=== PATIENT | female | born 1980 | race Caucasian/White ===

== ENCOUNTER 2017-07-28 15:17 | Emergency (ER) | payer BC ==
[~2017-07-28] VITALS: Ht 172.7 cm; Wt 77.8 kg
[~2017-07-28 15:17] MED LIST: ASPCH81 PO; ETONMIS VAGRING; FEXO5TAB2 PO; FLUT0.15 NAE; MONT1TAB3 PO; QVRINH40 INH; VENL1CAP92 PO; [UNRECOGNIZED DRUG - CODE] TOP
[2017-07-28 15:22] VITALS: TEMP 37
[2017-07-28] MEDS ORDERED: SODIUM CHLORIDE 0.9% 1000ML 1,000 ML IV STA (15:30)
--- NOTE | 2017-07-28 15:33 | EMERGENCY ROOM VISIT NOTE ---
History Report prepared by Vaishali: Chloe Montes Under the Supervision of: Dr. Jovi Green D.O. First contact with patient: 15:30 Chief Complaint: CARDIAC ASSESSMENT Stated Complaint: DIZZY, HEAVY CHEST, LEFT ARM PAIN History of Present Illness The patient is a 36 year old female who presents to the Emergency Room with complaints of near-syncope. The patient was at work when she started to have a sensation as if she was going to pass out. She also noticed palpitations and feelings of a regular heartbeat. 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 She also felt some chest discomfort and difficulty breathing. She had a similar episode in the past when she required a pacemaker. The patient has an extensive cardiac history. She had a pacemaker one time as well as surgery for a bicuspid aortic valve. The patient denies any recent illnesses or recent medication changes. She denies having any falls headaches or vomiting. She denies having any swelling in the legs or recent rashes. The patient states her symptoms are significantly improved with lying flat. She states her symptoms are worse with standing up. 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 She denies recent illness. Review of Systems See HPI for pertinent positives & negatives. A total of 10 systems reviewed and were otherwise negative. Past Medical & Surgical Medical Problems: (1) Heart block, AV (2) Heart Valve Replac Nec (3) History of gallstones (4) Pacemaker Family History Cancer Diabetes mellitus Heart disease Hypertension Social History Smoking Status: Never Smoker Smokeless Tobacco Use: No Alcohol Use: none Marital Status: Housing Status: lives with family Occupation Status: employed Current/Historical Medications Scheduled Aspirin (Aspirin Chewable), 81 MG PO DAILY Bupropion Hcl (Bupropion Hcl Xl), 150 MG PO DAILY Fluticasone Propionate (Nasal) (Flonase Allergy Relief), 1 SPRAY GODWIN QAM Montelukast Sodium (Singulair), 10 MG PO DAILY Trazodone Hcl (Trazodone), 50 MG PO HS Scheduled PRN Lorazepam (Ativan), 0.5 MG PO BID PRN for Anxiety Allergies Coded Allergies: No Known Allergies (Verified , `, 07/22/16) Physical Exam Vital Signs Date Time Temp Pulse Resp B/P (MAP) Pulse Ox O2 Delivery O2 Flow Rate FiO2 07/28/17 20:37 44 20 119/62 100 Room Air 07/28/17 19:30 Room Air 07/28/17 18:57 44 20 129/75 99 Room Air 07/28/17 18:37 46 18 124/75 99 Room Air 07/28/17 16:55 47 07/28/17 16:53 47 16 136/89 99 Room Air 07/28/17 15:55 53 140/80 99 Room Air 48 140/75 48 131/91 07/28/17 15:51 99 Room Air 07/28/17 15:38 99 Room Air 07/28/17 15:22 37.0 49 18 138/87 97 Room Air Physical Exam GENERAL: Patient is awake and alert. She appears somewhat anxious but comfortable. EYES: The conjunctivae are clear. The pupils are round and reactive. EARS, NOSE, MOUTH AND THROAT: The nose is without any evidence of any deformity. Mucous membranes are moist tongue is midline NECK: The neck is nontender and supple. RESPIRATORY: Normal respiratory effort is noted there is no evidence of wheezing rhonchi or rales CARDIOVASCULAR: Bradycardic rate with regular rhythm was noted. There was a systolic murmur appreciated. GASTROINTESTINAL: The abdomen is soft. Bowel sounds are present in all quadrants. Abdomen is nontender MUSCULOSKELETAL/EXTREMITIES: There is no evidence of gross deformity full range of motion is noted in the hips and shoulders SKIN: There is no obvious evidence of any rash. There are no petechiae, pallor or cyanosis noted. NEUROLOGIC: Patient is awake alert and oriented x3 strength is symmetric patellar reflexes are 2+ bilaterally Medical Decision & Procedures ER Provider Diagnostic Interpretation: X-ray results as stated below per interpretation by me and the radiologist. CHEST ONE VIEW PORTABLE FINDINGS: Prior median sternotomy. Residual cardiac pacer lead. Lungs are clear. Diaphragms smooth. IMPRESSION: No acute process. The above report was generated using voice recognition software. It may contain grammatical, syntax or spelling errors. Electronically signed by: Vega Castro M.D. 07/28/2017 3:53 PM Dictated Date/Time: 07/28/2017 3:52 PM Laboratory Results 07/28/17 15:38 Red Blood Count 4.82, Mean Corpuscular Volume 90.9, Mean Corpuscular Hemoglobin 32.6, Mean Corpuscular Hemoglobin Concent 35.8, Mean Platelet Volume 11.5, Neutrophils (%) (Auto) 63.6, Lymphocytes (%) (Auto) 25.3, Monocytes (%) (Auto) 7.7, Eosinophils (%) (Auto) 2.4, Basophils (%) (Auto) 0.8, Neutrophils # (Auto) 5.61, Lymphocytes # (Auto) 2.23, Monocytes # (Auto) 0.68, Eosinophils # (Auto) 0.21, Basophils # (Auto) 0.07 07/28/17 15:38 Test 07/28/17 15:38 07/28/17 15:49 07/28/17 16:04 White Blood Count 8.82 K/uL (4.8-10.8) Red Blood Count 4.82 M/uL (4.2-5.4) Hemoglobin 15.7 g/dL (12.0-16.0) Hematocrit 43.8 % (37-47) Mean Corpuscular Volume 90.9 fL (80-100) Mean Corpuscular Hemoglobin 32.6 pg (25-34) Mean Corpuscular Hemoglobin Concent 35.8 g/dl (32-36) Platelet Count 246 K/uL (130-400) Mean Platelet Volume 11.5 fL (7.4-10.4) Neutrophils (%) (Auto) 63.6 % Lymphocytes (%) (Auto) 25.3 % Monocytes (%) (Auto) 7.7 % Eosinophils (%) (Auto) 2.4 % Basophils (%) (Auto) 0.8 % Neutrophils # (Auto) 5.61 K/uL (1.4-6.5) Lymphocytes # (Auto) 2.23 K/uL (1.2-3.4) Monocytes # (Auto) 0.68 K/uL (0.11-0.59) Eosinophils # (Auto) 0.21 K/uL (0-0.5) Basophils # (Auto) 0.07 K/uL (0-0.2) RDW Standard Deviation 41.2 fL (36.4-46.3) RDW Coefficient of Variation 12.3 % (11.5-14.5) Immature Granulocyte % (Auto) 0.2 % Immature Granulocyte # (Auto) 0.02 K/uL (0.00-0.02) Prothrombin Time 10.5 SECONDS (9.0-12.0) Prothromb Time International Ratio 1.0 (0.9-1.1) Activated Partial Thromboplast Time 29.4 SECONDS (21.0-31.0) Partial Thromboplastin Ratio 1.1 Anion Gap 7.0 mmol/L (3-11) Est Creatinine Clear Calc Drug Dose 94.6 ml/min Estimated GFR () 94.7 Estimated GFR (Non- 81.7 BUN/Creatinine Ratio 11.4 (10-20) Calcium Level 9.8 mg/dl (8.5-10.1) Magnesium Level 2.1 mg/dl (1.8-2.4) Total Bilirubin 0.8 mg/dl (0.2-1) Direct Bilirubin 0.2 mg/dl (0-0.2) Aspartate Amino Transf (AST/SGOT) 25 U/L (15-37) Alanine Aminotransferase (ALT/SGPT) 33 U/L (12-78) Alkaline Phosphatase 90 U/L (45-117) Troponin I < 0.015 ng/ml (0-0.045) Total Protein 9.1 gm/dl (6.4-8.2) Albumin 5.0 gm/dl (3.4-5.0) Thyroid Stimulating Hormone (TSH) 1.660 uIu/ml (0.300-4.500) Free Thyroxine 0.96 ng/dl (0.80-1.60) Human Chorionic Gonadotropin, Qual NEG (NEG) Lyme Disease IgG Antibody NEG (NEG) Lyme Disease IgM Antibody NEG (NEG) Bedside Glucose 107 mg/dl (70-90) Urine Color YELLOW Urine Appearance CLEAR (CLEAR) Urine pH 5.5 (4.5-7.5) Urine Specific [place] 1.009 (1.000-1.030) Urine Protein NEG (NEG) Urine Glucose (UA) NEG (NEG) Urine Ketones NEG (NEG) Urine Occult Blood NEG (NEG) Urine Nitrite NEG (NEG) Urine Bilirubin NEG (NEG) Urine Urobilinogen NEG (NEG) Urine Leukocyte Esterase NEG (NEG) Laboratory results per my review. Medications Administered Medications (Trade) Dose Ordered Sig/Vaughn Route Start Time Stop Time Status Last Admin Dose Admin Sodium Chloride 1,000 ml @ 999 mls/hr Q1H1M STAT IV 07/28/17 15:30 07/28/17 16:30 DC 07/28/17 15:42 999 MLS/HR Potassium Chloride (Klor-Con M10) 20 meq NOW STAT PO 07/28/17 16:50 07/28/17 17:29 DC 07/28/17 17:39 20 MEQ Lorazepam (Ativan Inj) 0.5 mg NOW STAT IV 07/28/17 18:11 07/28/17 18:14 DC 07/28/17 18:34 0.5 MG ECG Indication: bradycardia Rate (beats per minute): 50 Rhythm: other (third-degree heart block) Findings: complete heart block, ST depression (Lateral) Comparison ECG Date: heart block is new compared to July however QRS morphology appears similar ED Course 1530: The patient was evaluated in room C12. A complete history and physical examination were performed. 1530: NSS 1,000 ml @ 999 mls/hr IV. 1555: I spoke to Dr. Odell. He will be evaluating the patient in the ED. 1650: Potassium Chloride 20meq PO. 1655: Dr. Odell of cardiology spoke to physician at [facility] but the patient was not able to be accepted as there are no beds. 1734: I discussed the patient's case with Dr. Odell of Cardiology. The patient will be evaluated for further management. 1755: Upon reevaluation, the patient is doing well. I discussed results and treatment plan with the patient. She verbalizes agreement and understanding. I spoke with Dr. Odell of Cardiology. The patient will be evaluated for further management and care. 2008: I discussed the patient's case with Dr. Jackson of [facility] in [place]. The patient will be evaluated for further management. She will go to [place] by ambulance. Medical Decision Differential diagnosis: Etiologies such as cardiac ischemia, aortic dissection, pulmonary embolism, pneumonia, pneumothorax, musculoskeletal, infections, pericarditis, myocarditis , esophageal rupture, gastrointestinal, as well as others were entertained. Nursing notes reviewed. The patient is a 36-year-old female who presented to the emergency department for evaluation of near syncope. 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 The patient states that she had palpitations and felt that her heart rate was slowing. She does have a significant cardiac history. The patient had a procedure to switch her pulmonary and aortic valves due to bicuspid aortic valve at a very young age. At one time she did have a history of third-degree heart block which required pacemaker. The pacemaker however failed and the patient does not currently have a pacemaker in place. She was found to be in third-degree heart block. She was treated with IV fluids. Her near syncopal symptoms improved with rest and lying flat. I discussed her case with the on- call [facility] abatement worker. She was evaluated by the [facility] abatement worker. The patient requested to be transferred to [facility] to her primary abatement worker in [place]. The on-call [facility] abatement worker got in touch with the patient's primary group and they wanted to accept her in transfer however no bed was available. Arrangements were made to keep the patient in our facility for a formal evaluation for possible pacemaker placement. While the patient was still in the emergency department we were contacted by [facility] that they were able to accommodate patient room so I contacted the on-call abatement worker who is covering for the patient's primary cardiology group and they were able to accept her. Transfer paperwork was written by myself. The patient was reevaluated multiple times. She was very pleased to be transferred to [facility] for further evaluation at her request. Medication Reconcilliation Current Medication List: was personally reviewed by me Blood Pressure Screening Patient's blood pressure: Elevated blood pressure Blood pressure disposition: Elevated BP felt to be situational Consults Time Called: [id number] Consulting Physician: Dr. Odell Returned Call: [phone]: Dr. Odell of cardiology spoke to physician at [facility] but the patient was not able to be accepted as there are no beds. 1734: I discussed the patient's case with Dr. Odell of Cardiology. The patient will be evaluated for further management. 1755: Upon reevaluation, the patient is doing well. I discussed results and treatment plan with the patient. She verbalizes agreement and understanding. I spoke with Dr. Odell of Cardiology. The patient will be evaluated for further management and care. Additional Consults: Time Called: 2004 Consulted Physician: Dr. Renetta Matos [facility] Returned Call: 2008 Additional Comments: I discussed the patient's case with Dr. Jackson of [facility] in [place]. The patient will be evaluated for further management. Impression Primary Impression: Third degree heart block Additional Impressions: Near syncope Symptomatic bradycardia Scribe Attestation The scribe's documentation has been prepared under my direction and personally reviewed by me in its entirety. I confirm that the note above accurately reflects all work, treatment, procedures, and medical decision making performed by me. Departure Information Dispostion Transfer Acute Care Facility Referrals Oz Swanson M.D.(LILIA) (PCP) Patient Instructions My [facility] Problem Qualifiers
[2017-07-28 15:38] VITALS: O2SAT 99
--- NOTE | 2017-07-28 15:54 | DIAGNOSTIC IMAGING REPORT ---
CHEST ONE VIEW PORTABLE CLINICAL HISTORY: EVALUATE ALTERED MENTAL STATUS/WEAKNESS COMPARISON STUDY: 07/22/2016 FINDINGS: Prior median sternotomy. Residual cardiac pacer lead. Lungs are clear. Diaphragms smooth. IMPRESSION: No acute process. The above report was generated using voice recognition software. It may contain grammatical, syntax or spelling errors. Electronically signed by: Vega Castro M.D. 07/28/2017 3:53 PM Dictated Date/Time: 07/28/2017 3:52 PM
[2017-07-28 16:14] LABS: BASO % 0.8 %; BASO ABS # 0.07 K/uL (0-0.2); COMPLETE YES; EOS % 2.4 %; HEMATOCRIT 43.8 % (37-47); IG% 0.2 %; LYMPH % 25.3 %; LYMPH ABS # 2.23 K/uL (1.2-3.4); MEAN CELL VOLUME 90.9 fL (80-100); MEAN CORPUSCULAR HEMOGLOBIN 32.6 pg (25-34); MEAN CORPUSCULAR HGB CONC 35.8 g/dl (32-36); MEAN PLATELET VOLUME 11.5 fL (7.4-10.4); MONO % 7.7 %; NEUT % 63.6 %; PLATELET COUNT 246 K/uL (130-400); RED BLOOD COUNT 4.82 M/uL (4.2-5.4); WHITE BLOOD COUNT 8.82 K/uL (4.8-10.8)
[2017-07-28 16:21] LABS: PARTIAL THROMBOPLASTIN RATIO 1.1; PROTHROMBIN TIME (PATIENT) 10.5 SECONDS (9.0-12.0)
[2017-07-28 16:30] LABS: URINE APPEARANCE CLEAR (CLEAR); URINE BILIRUBIN NEG (NEG); URINE COLOR YELLOW; URINE NITRITE NEG (NEG); URINE PH 5.5 (4.5-7.5); URINE SPECIFIC GRAVITY 1.009 (1.000-1.030); UROBILINOGEN NEG (NEG)
[2017-07-28] MEDS ORDERED: ASPCH81X PO (16:31)
[2017-07-28] MEDS ORDERED: BUPR-79 PO (16:32)
[2017-07-28 16:33] LABS: ALT/SGPT 33 U/L (12-78); BLOOD UREA NITROGEN 10 mg/dl (7-18); BUN/CREATININE RATIO 11.4 (10-20); CALCIUM 9.8 mg/dl (8.5-10.1); CARBON DIOXIDE 28 mmol/L (21-32); CHLORIDE 101 mmol/L (98-107); CREATININE 0.91 mg/dl (0.60-1.20); GLUCOSE 107 mg/dl (70-99); MAGNESIUM 2.1 mg/dl (1.8-2.4); POTASSIUM 3.4 mmol/L (3.5-5.1); SODIUM 136 mmol/L (136-145)
[2017-07-28] MEDS ORDERED: TRAZ50TA35 PO (16:33)
[2017-07-28] MEDS ORDERED: LORA-741 PO (16:35)
[2017-07-28 16:38] LABS: MANUAL MICROSCOPIC REQUIRED? NO; REVIEW REQ? NO
[2017-07-28 16:42] LABS: ALKALINE PHOSPHATASE 90 U/L (45-117); AST/SGOT 25 U/L (15-37)
[2017-07-28 16:50] LABS: PREG INTERNAL NEGATIVE QC NEG CLEAR BACKGROUND; PREG INTERNAL POSITIVE QC POS CONTROL LINE
[2017-07-28] MEDS ORDERED: POTASSIUM CHLORIDE 10 MEQ TABCR PO STA (16:50)
[2017-07-28 17:31] LABS: LYME DISEASE AB IGG NEG (NEG); LYME DISEASE AB IGM NEG (NEG)
[2017-07-28] MEDS ORDERED: NSS + 20MEQ KCL 1000ML 1,000 ML IV SCH (17:36)
[2017-07-28] MEDS ORDERED: ONDANSETRON INJ 2 MG/ML 2 ML VIAL IV PRN (17:45)
[2017-07-28] MEDS ORDERED: LORAZEPAM 0.5 MG TAB PO PRN (17:45)
[2017-07-28] MEDS ORDERED: ZOLPIDEM TARTRATE 5 MG TAB PO PRN ×2 (17:45)
[2017-07-28] MEDS ORDERED: POLYETHYLENE (MIRALAX) 17 GM PACK PO PRN (17:45)
[2017-07-28] MEDS ORDERED: ACETAMINOPHEN 325 MG TAB PO PRN (17:45)
[2017-07-28] MEDS ORDERED: MAGNESIUM HYDROXIDE SUSP 30 ML UDC PO PRN (17:45)
[2017-07-28] MEDS ORDERED: ALUMINUM/MAGNESIUM/SIMETH (MAALOX MAX) 30 ML UDC PO PRN (17:45)
--- NOTE | 2017-07-28 18:07 | HISTORY & PHYSICAL EXAMINATION ---
DATE OF ADMISSION: 07/28/2017 CHIEF COMPLAINT: Heart block. HISTORY OF PRESENT ILLNESS: The patient is a 36-year-old female with a complex past cardiac history. At age 3, she underwent surgery for a congenital bicuspid aortic valve. That surgery was complicated with heart block and she received a permanent pacemaker. The device was actually tunneled with the generator in the abdomen and the lead up along the lateral rib cage and then inserted transvenously into the right ventricle. The patient did well and then had a Ross procedure completed at age 16. She once again did well until her in 2009 at which time the pacemaker was bothering her and it was evaluated and found that she was not really using it and actually the battery had gone end of life, most likely several years ago. They removed the lead by cutting it in the subclavian area and it remains in the upper portion of the right ventricle. She did fine after removal of the pacemaker. 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 She was brought to the Emergency Department and found to be in complete heart block. She is now admitted for further care. ALLERGIES: No known medical allergies. PAST MEDICAL HISTORY: Except for the history of chief complaint her only other problems seem to be related to anxiety for which she takes medications. She has no history of diabetes, strokes or kidney disease. It should be noted that she has been followed by Dr. Hobson at [facility] for many years for her congenital heart disease. SOCIAL HISTORY: She is a nonsmoker. She is and lives with her . 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 FAMILY MEDICAL HISTORY: Noncontributory. REVIEW OF SYSTEMS: A 10-point review of systems is negative except for the history of chief complaint. PHYSICAL EXAMINATION: GENERAL: She is alert and oriented. VITAL SIGNS: Blood pressure is 140/70. Pulse is regular at 50 beats per minute. She has incomplete heart block with a ventricular escape rhythm. HEENT: She is normocephalic. Pupils are equal and reactive to light. Extraocular muscles are intact bilaterally. NECK: The neck veins are flat. Carotids have good upstrokes bilaterally without bruits. CHEST: There are postsurgical scars including under the right subclavian where the pacemaker lead was cut. RESPIRATORY: Breath sounds equal bilaterally and clear to auscultation. CARDIOVASCULAR: Heart has a regular rhythm. There is a systolic murmur at the left sternal border. No S3, S4. GASTROINTESTINAL: Abdomen is soft, nontender without organomegaly. EXTREMITIES: Free of edema, digit clubbing, or cyanosis. NEUROLOGIC: Grossly intact. SKIN: Warm to touch. LYMPH NODES: Negative to palpation. LABORATORY DATA: Potassium is 3.4. The patient has been on hydrochlorothiazide for adult acne. She does not listed as her medication, but she has also been on Aldactone for endometriosis. I do not believe that she has been taking these medications recently. IMPRESSION: 1. Complete heart block. 2. History of congenital heart disease. RECOMMENDATIONS: I have spoken to cardiology at [facility] but no beds are available at this time. The patient will be admitted here to [facility] on the telemetry overnight. If no bed becomes available at [facility], then I have spoken with the bottling room worker here and the plan will be to proceed with a permanent pacemaker tomorrow at [facility] if she remains in heart block. NEIDA
[2017-07-28] MEDS ORDERED: LORAZEPAM 2 MG/ML 1 ML VIAL IV STA (18:11)
[2017-07-28] MEDS ORDERED: IV FLUIDS COMPLETED PRN (18:45)
[2017-07-28 19:30] VITALS: Ht 172.7 cm; Wt 77.8 kg
[2017-07-28 20:37] VITALS: BP 119/62; PULSE 44; O2SAT 100
[2017-07-28] MEDS ORDERED: BUPR150T5 PO (20:38)
[2017-07-28] MEDS ORDERED: TRAZODONE HCL 50 MG TAB PO SCH (21:00)
[2017-07-29] MEDS ORDERED: ASPIRIN 81 MG CHEW PO SCH (09:00)
[2017-07-29] MEDS ORDERED: BuPROPion XL 150 MG TABCR PO SCH (09:00)
[2017-07-29] MEDS ORDERED: MONTELUKAST SOD 10 MG TAB PO SCH (09:00)
== END 2017-07-28 21:07 | disposition short-term general hospital (02) ==
LOC: C.EDB 15:18 → CANRESERV 19:03 → ENRESERV 19:03 → CANBEDREQ 19:45 → C.EDC 21:07
DX: I45.9 Conduction disorder, unspecified (principal); R55 Syncope and collapse; R00.1 Bradycardia, unspecified; Z95.2 Presence of prosthetic heart valve; Z83.3 Family history of diabetes mellitus; Z82.49 Family history of ischemic heart disease and other diseases of the circulatory system; Z79.82 Long term (current) use of aspirin

== ENCOUNTER 2017-09-09 08:33 | Emergency (ER) | payer BC ==
[~2017-09-09] VITALS: Ht 170.2 cm; Wt 78.4 kg
[~2017-09-09 08:33] MED LIST changes: -ASPCH81 PO; +ASPCH81X PO; +BUPR150T5 PO; -ETONMIS VAGRING; -FEXO5TAB2 PO; +LORA-741 PO; -QVRINH40 INH; +TRAZ50TA35 PO; -VENL1CAP92 PO; -[UNRECOGNIZED DRUG - CODE] TOP
[2017-09-09 08:38] VITALS: TEMP 37.1; Ht 170.2 cm; Wt 78.4 kg
[2017-09-09 08:58] VITALS: O2SAT 98
[2017-09-09] MEDS ORDERED: CLONAZEPAM 1 MG TAB PO STA (09:12)
--- NOTE | 2017-09-09 09:19 | EMERGENCY ROOM VISIT NOTE ---
History Report prepared by Vaishali: Savita Srinivasan Under the Supervision of: Dr. Jama Travis M.D. First contact with patient: 08:51 Chief Complaint: CHEST PAIN Stated Complaint: CP, ARM PAIN, BACK ARM TINGLING, RECENT PACEMAKER History of Present Illness The patient is a 36 year old female who presents to the Emergency Room with complaints of intermittent chest pain that began prior to arrival. The patient states that she was born with a bicuspid aortic valve. She states that she had a pediatric speech language pathologist that went in to fix it and states that her valve was over thinned which caused her heart block. The patient states that she had a pacemaker placed as a child, but states that it was only used temporarily until the age of 15. The patient states that she was fine up until a few weeks ago, but notes that she was giving flu shots when she went into complete heart block. She states that she had a pacemaker placed in [place] a few weeks ago. The patient states that over the past week she has noticed erythema at the site of the pacemaker and states that she has noticed audible crackles in her lungs that clear with standing. She states that her PCP thought she may be developing an infection to her site and a walking pneumonia so she was placed on Augmentin. The patient reports a soreness around the area. She states that the past two days she has noticed left arm tingling and numbness when holding her arms up for short periods of time. The patient states that this morning it was much worse and notes that her arm turned purple. She additionally reports a low-grade fever. The patient states that she has been feeling nauseous and short of breath. She reports diarrhea, but denies that being a new thing. The patient reports increased urination at night. She states that she has been feeling intermittently lightheaded. The patient states that she has been feeling anxious since the pacemaker was placed, noting that she was placed on Clonazepam. She denies any vomiting. Source of History: patient Onset: prior to arrival Position: chest Timing: intermittent Associated Symptoms: + SOB, + nausea, + diarrhea, + urinary symptoms ( increased urination), + numbness (in arms), No vomiting Note: Associated Symptoms: lightheaded, arm turned purple Review of Systems See HPI for pertinent positives and negatives. A total of ten systems were reviewed and were otherwise negative. Past Medical & Surgical Medical Problems: (1) Heart block, AV (2) Heart Valve Replac Nec (3) History of gallstones (4) Pacemaker Family History Cancer Diabetes mellitus Heart disease Hypertension Social History Smoking Status: Never Smoker Alcohol Use: none Marital Status: Housing Status: lives with family Occupation Status: employed Current/Historical Medications Scheduled Aripiprazole (Abilify), 5 MG PO HS Aspirin (Aspirin Chewable), 81 MG PO DAILY Clonazepam (Klonopin), 1 MG PO HS Fluticasone Propionate (Nasal) (Flonase Allergy Relief), 1 SPRAY GODWIN QAM Scheduled PRN Clonazepam (Klonopin), 1 MG PO DAILY PRN for Anxiety Montelukast Sodium (Singulair), 10 MG PO DAILY PRN for ALLERGIES Allergies Coded Allergies: No Known Allergies (Verified , `, 09/09/17) Physical Exam Vital Signs Date Time Temp Pulse Resp B/P (MAP) Pulse Ox O2 Delivery O2 Flow Rate FiO2 09/09/17 15:15 81 18 112/74 99 Room Air 09/09/17 13:20 77 18 116/61 100 Room Air 09/09/17 13:08 77 09/09/17 11:22 93 18 109/69 98 Room Air 09/09/17 10:38 72 14 09/09/17 10:08 71 22 09/09/17 10:01 104/64 09/09/17 09:38 77 20 09/09/17 09:33 79 14 09/09/17 09:31 116/82 09/09/17 09:03 85 12 100 09/09/17 09:01 135/100 09/09/17 08:58 98 T-piece 09/09/17 08:57 75 09/09/17 08:56 126/81 09/09/17 08:38 37.1 79 20 133/71 99 Room Air Physical Exam GENERAL: Awake, alert, anxious-appearing, in no distress HENT: Normocephalic, atraumatic. Dry mucous membranes. EYES: Normal conjunctiva. Sclera non-icteric. NECK: Supple. No nuchal rigidity. FROM. No JVD. CHEST: Mild tenderness over pacemaker site. RESPIRATORY: Clear to auscultation. CARDIAC: Regular rate, normal rhythm. Extremities warm and well perfused. Pulses equal, normal cap refill. ABDOMEN: Soft, non-distended. No tenderness to palpation. No rebound or guarding. No masses. RECTAL: Deferred. MUSCULOSKELETAL: The back is symmetrical on inspection without obvious abnormality. There is no CVA tenderness to palpation. No joint edema. LOWER EXTREMITIES: Calves are equal size bilaterally and non-tender. No edema. No discoloration. NEURO: Normal sensorium. No sensory or motor deficits noted. SKIN: No rash or jaundice noted. Medical Decision & Procedures ER Provider Diagnostic Interpretation: Radiology results as stated below per my review and radiologist interpretation: CHEST ONE VIEW PORTABLE CLINICAL HISTORY: ABDOMINAL PAIN/GI pain. Nausea. COMPARISON STUDY: 07/28/2017 FINDINGS: Prior median sternotomy. Permanent bipolar cardiac pacer in good position. No evidence pneumothorax. Lungs are clear. IMPRESSION: No acute process. The above report was generated using voice recognition software. It may contain grammatical, syntax or spelling errors. Electronically signed by: Vega Castro M.D. 09/09/2017 9:37 AM Dictated Date/Time: 09/09/2017 9:[address] ANGIOGRAM OF THE CHEST CLINICAL HISTORY: Atypical chest pain, shortness of breath, positive d-dimer. COMPARISON STUDY: 01/04/2007 TECHNIQUE: Following the IV administration of 86 mL of Optiray-320, CT angiogram of the thorax was performed from the thoracic inlet to the lung bases utilizing the pulmonary embolus protocol. Images are reviewed in the axial, sagittal, and coronal planes. IV contrast was administered without complication. MIP imaging was performed. A dose lowering technique was utilized adhering to the principles of ALARA. CT DOSE: 279.71 mGy.cm FINDINGS: No pathologically enlarged axillary mediastinal or hilar lymph nodes were visualized. There is aneurysmal dilatation of the ascending thoracic aorta which measures 46 mm in diameter. The aorta measures 39 mm in December 2006. There were no pulmonary artery filling defects to indicate acute pulmonary embolism. No pleural effusions are visualized. There is no focal pulmonary consolidation. There is respiratory motion artifact. There is a left subclavian dual-chamber central venous pacemaker. There are postsurgical changes of a midline sternotomy. IMPRESSION: 1. No evidence of acute pulmonary embolism 2. Progressive aneurysmal dilatation of the ascending thoracic aorta which currently measures 46 mm. No dissection flap is visualized 3. No evidence of focal pulmonary consolidation Electronically signed by: Ehsan Ramon M.D. 09/09/2017 11:52 AM Dictated Date/Time: 09/09/2017 11:45 AM Laboratory Results 09/09/17 09:49 Red Blood Count 4.05, Mean Corpuscular Volume 89.9, Mean Corpuscular Hemoglobin 31.1, Mean Corpuscular Hemoglobin Concent 34.6, Mean Platelet Volume 11.6, Neutrophils (%) (Auto) 74.7, Lymphocytes (%) (Auto) 18.8, Monocytes (%) (Auto) 4.7, Eosinophils (%) (Auto) 1.1, Basophils (%) (Auto) 0.5, Neutrophils # (Auto) 4.79, Lymphocytes # (Auto) 1.20, Monocytes # (Auto) 0.30, Eosinophils # (Auto) 0.07, Basophils # (Auto) 0.03 09/09/17 09:49 Test 09/09/17 09:49 09/09/17 10:20 09/09/17 10:50 White Blood Count 6.40 K/uL (4.8-10.8) Red Blood Count 4.05 M/uL (4.2-5.4) Hemoglobin 12.6 g/dL (12.0-16.0) Hematocrit 36.4 % (37-47) Mean Corpuscular Volume 89.9 fL (80-100) Mean Corpuscular Hemoglobin 31.1 pg (25-34) Mean Corpuscular Hemoglobin Concent 34.6 g/dl (32-36) Platelet Count 185 K/uL (130-400) Mean Platelet Volume 11.6 fL (7.4-10.4) Neutrophils (%) (Auto) 74.7 % Lymphocytes (%) (Auto) 18.8 % Monocytes (%) (Auto) 4.7 % Eosinophils (%) (Auto) 1.1 % Basophils (%) (Auto) 0.5 % Neutrophils # (Auto) 4.79 K/uL (1.4-6.5) Lymphocytes # (Auto) 1.20 K/uL (1.2-3.4) Monocytes # (Auto) 0.30 K/uL (0.11-0.59) Eosinophils # (Auto) 0.07 K/uL (0-0.5) Basophils # (Auto) 0.03 K/uL (0-0.2) RDW Standard Deviation 39.9 fL (36.4-46.3) RDW Coefficient of Variation 12.2 % (11.5-14.5) Immature Granulocyte % (Auto) 0.2 % Immature Granulocyte # (Auto) 0.01 K/uL (0.00-0.02) Anion Gap 8.0 mmol/L (3-11) Est Creatinine Clear Calc Drug Dose 100.8 ml/min Estimated GFR () 104.4 Estimated GFR (Non- 90.0 BUN/Creatinine Ratio 11.5 (10-20) Calcium Level 8.9 mg/dl (8.5-10.1) Total Bilirubin 0.8 mg/dl (0.2-1) Direct Bilirubin 0.2 mg/dl (0-0.2) Aspartate Amino Transf (AST/SGOT) 18 U/L (15-37) Alanine Aminotransferase (ALT/SGPT) 27 U/L (12-78) Alkaline Phosphatase 64 U/L (45-117) Troponin I < 0.015 ng/ml (0-0.045) Pro-B-Type Natriuretic Peptide 190 pg/ml (0-450) Total Protein 7.9 gm/dl (6.4-8.2) Albumin 4.2 gm/dl (3.4-5.0) Lipase 131 U/L (73-393) Bedside D-Dimer > 450 ng/mlFEU (0-450) Urine Color YELLOW Urine Appearance CLEAR (CLEAR) Urine pH 5.5 (4.5-7.5) Urine Specific [place] 1.010 (1.000-1.030) Urine Protein NEG (NEG) Urine Glucose (UA) NEG (NEG) Urine Ketones NEG (NEG) Urine Occult Blood NEG (NEG) Urine Nitrite NEG (NEG) Urine Bilirubin NEG (NEG) Urine Urobilinogen NEG (NEG) Urine Leukocyte Esterase NEG (NEG) Urine Test NEG (NEG) Laboratory results reviewed by me Medications Administered Medications (Trade) Dose Ordered Sig/Vaughn Route Start Time Stop Time Status Last Admin Dose Admin Clonazepam (Klonopin Tab) 1 mg STK-MED ONCE .ROUTE 09/09/17 09:36 09/09/17 09:37 DC 09/09/17 09:41 1 MG ECG Indication: chest pain Rate (beats per minute): 74 Rhythm: normal sinus Findings: no acute ischemic change, other (normal axis) Comparison ECG Date: 07/28/17 Change: When compared to EKG done on 07/28/17, heart block has resolved ED Course 0856: The patient was evaluated in room A9B. A complete history and physical exam was performed. 0936: Ordered Klonopin Tab 1 mg .route 1129: I discussed the patients case with Dr. Patel, Cardiology. He said that he agrees with the work up so far, he states that he would add a duplex of the arm. He states that he will come by and evaluate the patient. 1307: I spoke to Dr. Patel regarding the patient at this time. He states that he looked at the site and does not feel that it is infected at this time. He states that it is not uncommon to see some fluid around the pacemaker placement at this time. He would like to have the patient to have an arterial ultrasound study. Medical Decision I reviewed the patient's past medical history, medications, and the nursing notes as described above. The patient's presentation and history were concerning for Infection of pacemaker site, musculoskeletal strain, PE, DVT, pneumonia, bronchitis, ACS, CHF. The patient is a 36-year-old woman with a past medical history of heart block status post new pacemaker several weeks ago, recently treated with amoxicillin for erythema oversight which is now improved . She emergency Department with multiple complaints including chest pain, left arm pain and numbness, intermittent discoloration/cyanosis of left upper extremity per history of present illness. Arrival the patient is anxious and tearful appearing. He is afebrile with stable vital signs. Pacemaker site incision site is clean dry and intact with no areas of fluctuance or induration. However, she does have mild tenderness. Bedside soft tissue ultrasound shows smile small 0.5 cm fluid collection on the lateral aspect of the incision site that could be postsurgical versus less likely abscess given no other signs of infection. Patient does have equal pulses throughout. Motor sensory intact. D-dimer was elevated and so CTA was performed and was negative for PE or pneumonia. Case was discussed with Dr. Patel the patient's lang path therapist, who evaluated patient and agreed with workup thus far and recommending arterial and venous duplex of the left upper extremity given the patient's symptoms of apparent decreased perfusion. Venous and Arterial US unremarkable. Patient updated on findings together with at bedside. Plan for f/u with patient's surgeon tomorrow for further evaluation regarding symptoms and possible positional thoracic outlet syndrome although CTA and US studies today reassuring. Plan to continue patient's current Augmentin given prior erythema although today site does not appear infected and fluid on US likely post- surgical. Findings and plan for follow-up reviewed with patient. Patient agreeable and d/c'd per discharge instructions. Medication Reconcilliation Current Medication List: was personally reviewed by me Consults Time Called: 1100 Consulting Physician: Dr. Patel, Cardiology Returned Call: [phone] I discussed the patients case with Dr. Patel, Cardiology. He said that he agrees with the work up so far, he states that he would add a duplex of the arm. He states that he will come by and evaluate the patient. Impression Primary Impression: Chest wall pain Additional Impression: Arm paresthesia, left Scribe Attestation The scribe's documentation has been prepared under my direction and personally reviewed by me in its entirety. I confirm that the note above accurately reflects all work, treatment, procedures, and medical decision making performed by me. Departure Information Dispostion Home / Self-Care Referrals No Doctor, Assigned (PCP) Patient Instructions ED Chest Pain Costochondritis, ED Paraesthesias, [facility], Treatment for Thoracic Outlet Syndrome, Understanding Thoracic Outlet Syndrome Additional Instructions Please follow up with your surgeon tomorrow at [facility] for re-evaluation as discussed. The exact cause of your symptoms at this time is unclear although it may be due to a positional thoracic outlet syndrome, which should be further evaluated by your surgeon. Otherwise, your exam, EKG, chest xray, CT scan of your chest, arterial and venous ultrasound of your arm, and lab results did not show signs of an emergent condition at this time. Continue your current medications as prescribed. Acetaminophen or Ibuprofen for pain as needed. Return to the emergency department for worsening symptoms as described in the accompanying instructions. Problem Qualifiers
[2017-09-09] MEDS ORDERED: ABL/5 PO (09:22)
[2017-09-09] MEDS ORDERED: CLON1TAB3 PO ×2 (09:22)
[2017-09-09] MEDS ORDERED: CLONAZEPAM 0.5 MG TAB ONE (09:36)
--- NOTE | 2017-09-09 09:39 | DIAGNOSTIC IMAGING REPORT ---
CHEST ONE VIEW PORTABLE CLINICAL HISTORY: ABDOMINAL PAIN/GI pain. Nausea. COMPARISON STUDY: 07/28/2017 FINDINGS: Prior median sternotomy. Permanent bipolar cardiac pacer in good position. No evidence pneumothorax. Lungs are clear. IMPRESSION: No acute process. The above report was generated using voice recognition software. It may contain grammatical, syntax or spelling errors. Electronically signed by: Vega Castro M.D. 09/09/2017 9:37 AM Dictated Date/Time: 09/09/2017 9:36 AM
[2017-09-09 10:45] LABS: BASO % 0.5 %; BASO ABS # 0.03 K/uL (0-0.2); COMPLETE YES; EOS % 1.1 %; HEMATOCRIT 36.4 % (37-47); IG% 0.2 %; LYMPH % 18.8 %; MEAN CELL VOLUME 89.9 fL (80-100); MEAN CORPUSCULAR HEMOGLOBIN 31.1 pg (25-34); MEAN CORPUSCULAR HGB CONC 34.6 g/dl (32-36); MEAN PLATELET VOLUME 11.6 fL (7.4-10.4); MONO % 4.7 %; NEUT % 74.7 %; PLATELET COUNT 185 K/uL (130-400); RED BLOOD COUNT 4.05 M/uL (4.2-5.4)
[2017-09-09 11:02] LABS: ALT/SGPT 27 U/L (12-78); BLOOD UREA NITROGEN 10 mg/dl (7-18); BUN/CREATININE RATIO 11.5 (10-20); CALCIUM 8.9 mg/dl (8.5-10.1); CARBON DIOXIDE 24 mmol/L (21-32); CHLORIDE 107 mmol/L (98-107); CREATININE 0.84 mg/dl (0.60-1.20); GLUCOSE 86 mg/dl (70-99); POTASSIUM 3.7 mmol/L (3.5-5.1); SODIUM 139 mmol/L (136-145)
[2017-09-09 11:08] LABS: ALKALINE PHOSPHATASE 64 U/L (45-117); AST/SGOT 18 U/L (15-37)
[2017-09-09 11:13] LABS: URINE APPEARANCE CLEAR (CLEAR); URINE BILIRUBIN NEG (NEG); URINE COLOR YELLOW; URINE NITRITE NEG (NEG); URINE PH 5.5 (4.5-7.5); UROBILINOGEN NEG (NEG); ZZUR CULT IF INDIC CLEAN CATCH NO
[2017-09-09 11:21] LABS: MANUAL MICROSCOPIC REQUIRED? NO; REVIEW REQ? NO
[2017-09-09] MEDS ORDERED: OPTIRAY 320 IV PRN (11:30)
--- NOTE | 2017-09-09 11:53 | DIAGNOSTIC IMAGING REPORT ---
CT ANGIOGRAM OF THE CHEST CLINICAL HISTORY: Atypical chest pain, shortness of breath, positive d-dimer. COMPARISON STUDY: 01/04/2007 TECHNIQUE: Following the IV administration of 86 mL of Optiray-320, CT angiogram of the thorax was performed from the thoracic inlet to the lung bases utilizing the pulmonary embolus protocol. Images are reviewed in the axial, sagittal, and coronal planes. IV contrast was administered without complication. MIP imaging was performed. A dose lowering technique was utilized adhering to the principles of ALARA. CT DOSE: 279.71 mGy.cm FINDINGS: No pathologically enlarged axillary mediastinal or hilar lymph nodes were visualized. There is aneurysmal dilatation of the ascending thoracic aorta which measures 46 mm in diameter. The aorta measures 39 mm in December 2006. There were no pulmonary artery filling defects to indicate acute pulmonary embolism. No pleural effusions are visualized. There is no focal pulmonary consolidation. There is respiratory motion artifact. There is a left subclavian dual-chamber central venous pacemaker. There are postsurgical changes of a midline sternotomy. IMPRESSION: 1. No evidence of acute pulmonary embolism 2. Progressive aneurysmal dilatation of the ascending thoracic aorta which currently measures 46 mm. No dissection flap is visualized 3. No evidence of focal pulmonary consolidation Electronically signed by: Ehsan Ramon M.D. 09/09/2017 11:52 AM Dictated Date/Time: 09/09/2017 11:45 AM
--- NOTE | 2017-09-09 14:33 | Cardiology Consultation ---
Cardiology Consultation Date of Consultation: Sep 09, 2017 History of Present Illness Nery Berman is a 36 year old female seen in cardiology consultation per the request of Dr Travis for the evaluation of chest pain, arm pain, and concern of redness of her pacemaker incision. 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 She has followed with Dr. Gabino Hobson of a congenital/pediatric cardiology for many years with most recent visit having been performed in December,. The patient apparently had heart block after her Ross procedure in 1996. Her generator reached the elective replacement interval in 2009, but she had not had any documented recurrences of AV block on pacemaker checks for many years, and therefore her right-sided pacemaker generator was removed operatively in 2009 rather than having a generator replacement. 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 ~She actually connected herself to inspector circuitry negative and was found to be bradycardic with complete AV block in the 40 beat per minute range. ~She was taken to the emergency department, and ultimately seen in cardiology consultation by Dr. Odell of our practice. ~It was felt that permanent pacemaker was indicated, and per patient preference she was transferred to [facility] due to her complex history of congenital heart disease, and the fact that she had had her previous procedures there. A Lyme screen was negative as well as a thyroid screen was negative at that time. She went on to have a dual-chamber [employer] pacemaker and plantation. 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 A CT scan, it is been determined that her proximal ascending aorta is moderately dilated in the range of 4.6-4.7 cm as confirmed on repeat CT scan already performed today. The patient states that she went to see her primary care provider 2 days ago. She had noted increased erythema over her pacemaker incision. She was prescribed a course of Augmentin. Today while doing her hair her left arm felt tired. She then noted chest discomfort that was under her right breast. She has chest discomfort episodes of times and this is not particularly out of the ordinary for her. While doing her hair, she raised both of her arms and her left arm, which is the side of her pacemaker had recently placed was noted to have a color change and it looked dusky and perhaps blue or purple. She actually took a picture of this with her mobile phone and it was visible. In the emergency department, it was noted that her d-dimer is elevated. She has already had a CT of the chest which was negative troponin [place] in the negative for pericardial effusion. During my assessment of the patient, she has no significant distention of her veins in her left hand or left arm. Her left infraclavicular pacemaker site looks clean dry and intact, with an appropriate degree of keloid healing over her pacemaker incision. There is no drainage and no suggestion of pocket hematoma or abscess was noted on palpation or visual inspection. Past Medical/Surgical History Problem List: Medical Problems: (1) Heart block, AV (2) Heart Valve Replac Nec (3) History of gallstones (4) Pacemaker Review Of Systems See above for pertinent positives & negatives. A total of 10 systems reviewed and were otherwise negative. Allergies Coded Allergies: No Known Allergies (Verified , `, 09/09/17) Medications Reported Home Medications Medications Dose Route/Sig Max Daily Dose Days Date Category Klonopin (Clonazepam) 1 Mg Tab 1 Mg PO DAILY PRN 09/09/17 Reported Klonopin (Clonazepam) 1 Mg Tab 1 Mg PO HS 09/09/17 Reported Abilify (Aripiprazole) 5 Mg Tab 5 Mg PO HS 09/09/17 Reported Aspirin Chewable (Aspirin) 81 Mg Chew 81 Mg PO DAILY 07/28/17 Reported Singulair (Montelukast Sodium) 10 Mg Tab 10 Mg PO DAILY PRN 09/25/16 Reported Flonase Allergy Relief (Fluticasone Propionate (Nasal)) 50 Mcg/Act Spr 1 [place] GODWIN QAM 07/22/16 Reported Physical Exam Vital Signs (Last 8hrs): Last 8 Hrs Date Time Temp Pulse Resp B/P (MAP) Pulse Ox O2 Delivery O2 Flow Rate FiO2 09/09/17 13:20 77 18 116/61 100 Room Air 09/09/17 13:08 77 09/09/17 11:22 93 18 109/69 98 Room Air 09/09/17 10:38 72 14 09/09/17 10:08 71 22 09/09/17 10:01 104/64 09/09/17 09:38 77 20 09/09/17 09:33 79 14 09/09/17 09:31 116/82 09/09/17 09:03 85 12 100 09/09/17 09:01 135/100 09/09/17 08:58 98 T-piece 09/09/17 08:57 75 09/09/17 08:56 126/81 09/09/17 08:38 37.1 79 20 133/71 99 Room Air General Appearance: Alert and Oriented x3. NAD. Head: Normocephalic Atraumatic. Eyes: PERRLA, EOMI, conjunctiva and sclera clear Neck: Supple. No carotid bruits noted. No JVD. No HJD. Respiratory: Breath sounds clear to auscultation bilaterally. No w/r/r. Cardiovascular: Reg rate and rhythm. S1 and S2 noted. No murmurs, rubs, gallops. PMI non displace. Abdomen: Normal bowel sounds, soft nontender. no abdominal bruits. Extremities: No edema, no clubbing or cyanosis. distal pulses 2/4 bilaterally. Neuro: No focal deficits. Psychiatric: Normal affect. .pacemaker pocket is clean dry and intact, with no suggestion of abnormal incision changes. Data Last Resulted 09/09/17 09:49 Red Blood Count 4.05, Mean Corpuscular Volume 89.9, Mean Corpuscular Hemoglobin 31.1, Mean Corpuscular Hemoglobin Concent 34.6, Mean Platelet Volume 11.6, Neutrophils (%) (Auto) 74.7, Lymphocytes (%) (Auto) 18.8, Monocytes (%) (Auto) 4.7, Eosinophils (%) (Auto) 1.1, Basophils (%) (Auto) 0.5, Neutrophils # (Auto) 4.79, Lymphocytes # (Auto) 1.20, Monocytes # (Auto) 0.30, Eosinophils # (Auto) 0.07, Basophils # (Auto) 0.03 Last Resulted 09/09/17 09:49 Past 24 Hours Test 09/09/17 09:49 Range/Units Troponin I < 0.015 0-0.045 ng/ml EKG reveals SR at 74 bpm, with nonspecific ST changes. Compared to 07/28/17 SR has replaced complete heart block. Assessment & Plan Impression: 36 year old female 1. Concerns of left arm pain, cyanosis of left upper extremity s/p recent pacemaker placement 6 weeks ago. 2. Underlying congenital heart disease, remote Ross procedure, with mild AR, and [place]/ [place] of the pulmonary homograft. 3. Ascending aorta aneurysm, moderate dilatation 4.[address] today, correlates with recent CT at [facility] Plan: CT is negative for pulmonary embolism. Upper extremity venous and arterial duplex studies were requested and revealed no evidence of left upper extremity DVT and normal left upper extremity and left subclavian arterial flow. Patient is going to be discharged from the ED. She is going to continue her course of Augmentin, as she states there had been an interval improvement in the redness of her incision. She is going to follow up with EP at [facility] this week and has a visit with Dr Hobson of Pediatric / Adult congenital cardiology as well on Thursday. Dinora Patel DO
[2017-09-09 15:15] VITALS: BP 112/74; PULSE 81; O2SAT 99
--- NOTE | 2017-09-09 15:24 | DIAGNOSTIC IMAGING REPORT ---
ULTRASOUND VENOUS DOPPLER ULTRASOUND OF THE LEFT UPPER EXTREMITY CLINICAL HISTORY: Left arm pain and numbness. COMPARISON STUDY: No previous studies for comparison. FINDINGS: No intraluminal thrombus was visualized. The internal jugular, subclavian, axillary, cephalic, brachial, basilic, radial, and ulnar veins were patent. IMPRESSION: No evidence of left upper extremity DVT. Electronically signed by: Ehsan Ramon M.D. 09/09/2017 3:23 PM Dictated Date/Time: 09/09/2017 3:23 PM
--- NOTE | 2017-09-09 15:41 | DIAGNOSTIC IMAGING REPORT ---
LEFT UPPER EXTREMITY ARTERIAL DOPPLER STUDY HISTORY: Left arm pain. r/o subclavian stenosis, left extremity stenosis COMPARISON STUDY: None. FINDINGS: Normal velocities and waveforms seen within the left common carotid, subclavian, axillary, brachial, radial, and ulnar arteries. No significant stenosis. No areas of occlusion identified. IMPRESSION: Normal left upper extremity arterial Doppler study. Electronically signed by: Adan Patel M.D. 09/09/2017 3:40 PM Dictated Date/Time: 09/09/2017 3:39 PM
== END 2017-09-09 16:23 | disposition home or self-care (01) ==
LOC: C.EDB 08:34 → C.EDA 16:23
DX: R07.89 Other chest pain (principal); R20.2 Paresthesia of skin; Z95.0 Presence of cardiac pacemaker; Z95.2 Presence of prosthetic heart valve; I44.2 Atrioventricular block, complete; Z80.9 Family history of malignant neoplasm, unspecified; Z83.3 Family history of diabetes mellitus; Z82.49 Family history of ischemic heart disease and other diseases of the circulatory system; Z79.82 Long term (current) use of aspirin; Z79.899 Other long term (current) drug therapy

== ENCOUNTER 2017-12-03 11:49 | Emergency (ER) | payer OTHER, BC ==
[~2017-12-03] VITALS: Ht 170.2 cm; Wt 75.4 kg
[~2017-12-03 11:49] MED LIST changes: +ABL/5 PO; -BUPR150T5 PO; +CLON1TAB3 PO; -LORA-741 PO; -TRAZ50TA35 PO
[2017-12-03 12:20] VITALS: PULSE 82; TEMP 36.8; O2SAT 96; Ht 170.2 cm; Wt 75.4 kg
--- NOTE | 2017-12-04 15:30 | EMERGENCY ROOM VISIT NOTE ---
ED Visit Note First contact with patient: 12:28 Chief Complaint: Needlestick. History of Present Illness: Ms. Berman is a 37-year-old white female who ambulates into the ED complaining of a work-related needlestick injury to the left hand. Patient reports she was removing a needle from in a port and accidentally punctured her left middle finger. She reports she immediately washed the wound with antibacterial soap and water. 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 Early she denies all symptoms related to her injury. She reports in the past she believes her hepatitis, tetanus and other immunizations are all up-to-date. Review of Systems: As noted above in history of present illness. Past Medical History: Valvular heart disease, status post valvular heart surgery. Current Medications: Syeda Canela. Allergies to Medications: Patient denies. Social History: Patient is currently employed; she feels safe in her home environment; she denies tobacco and alcohol use. Tetanus Immunization Status: Patient reports up-to-date. Physical Examination: Vital Signs: Date Time Temp Pulse Resp B/P (MAP) Pulse Ox O2 Delivery O2 Flow Rate FiO2 12/03/17 12:20 36.8 82 16 96 Room Air GENERAL: 37-year-old female in no acute distress, nontoxic-appearing, afebrile and hemodynamically stable. NEUROLOGICAL: Awake, alert and oriented to person, place and time. Answering questions appropriately and following commands. SKIN: Warm, dry and pink. Left Hand: Single puncture wound to the dorsal aspect of the left middle finger at the level of the DIP joint. No active bleeding. No soft tissue eruptions or trauma noted. ED Course: Patient is assessed as noted above. Patient's medication list was reviewed. Patient was counseled/educated on the use of hepatitis and HIV testing. I did review that consult for blood testing. She reviewed this forearm and consented to testing. Patient was educated about today's findings and instructed on her treatment plan ; she verbalized understanding and agreement with this plan. Clinical Impression: Needlestick injury. Possible exposure to blood/body secretions. Disposition: Patient discharged home in stable condition; prior to departure she was reassessed and subjectively reported she was pain and symptom-free. Plan: Comfort measures, wound care and signs of infection were discussed with the patient. Patient was encouraged to follow-up with [facility] for signs of infection and/or testing results. Patient was discharged and instructed to go to the labs for testing. Patient is encouraged return ED for any new/concerning symptoms.
== END 2017-12-03 12:45 | disposition home or self-care (01) ==
LOC: C.EDB 11:50 → C.EDD 12:45
DX: S61.432A Puncture wound without foreign body of left hand, initial encounter (principal); W46.1XXA Contact with contaminated hypodermic needle, initial encounter; Z79.899 Other long term (current) drug therapy

== ENCOUNTER 2020-11-05 11:48 | Observation (INO) ==
[2020-11-05] MEDS ORDERED: AMOXICILLIN/CLAVULANATE 875 MG TAB PO ONE (12:15)
--- NOTE | 2020-11-05 12:47 | XRay Report ---
XR chest 1V portable CLINICAL HISTORY: SEPSIS COMPARISON STUDY: Chest radiograph June 15, 2020. Chest CT December 28, 2018. FINDINGS: An old right-sided lead is in place. There are pediatric median sternotomy wires. Cardiomed iastinal silhouette is stable. An electronic device projects over the left chest wall. In addition, a prosthetic valve is noted, likely pulmonic. There is no evidence for pulmonary edema. No consolidati on is noted. No pneumothorax or pleural effusion is noted. IMPRESSION: No acute cardiopulmonary findings. ACT 112: Negative or not required by law. Electronically signed by: Cristiano Park M.D. 11/05/2020 12:45 PM
[2020-11-05 13:25] LABS: Basophils # (auto) 0.01 K/uL (0-0.2); Basophils % (auto) 0.1 %; Hematocrit (blood only) 35.4 % (37-47); Hemoglobin 12.2 g/dL (12.0-16.0); Immature Granulocytes # (auto) 0.09 K/uL (0.00-0.02); Immature Granulocytes % (auto) 0.7 %; Lymphocytes # (auto) 0.84 K/uL (1.2-3.4); Lymphocytes % (auto) 6.1 %; Mean Corpuscular Hemoglobin 32.6 pg (25-34); Mean Corpuscular Hgb Conc 34.5 g/dL (32-36); Mean Corpuscular Volume 94.7 fL (80-100); Mean Platelet Volume 10.8 fL (7.4-10.4); Monocytes # (auto) 0.19 K/uL (0.11-0.59); Monocytes % (auto) 1.4 %; Neutrophils # (auto) 12.67 K/uL (1.4-6.5); Neutrophils % (auto) 91.7 %; Platelet Count 281 K/uL (130-400); RDW Standard Deviation 44.6 fL (36.4-46.3); Red Blood Count 3.74 M/uL (4.2-5.4)
[2020-11-05 13:36] LABS: Partial Thromboplastin Ratio 0.9; Partial Thromboplastin Time 24.2 Seconds (21.0-31.0); Prothrombin Time 10.1 Seconds (9.0-12.0)
[2020-11-05 13:37] LABS: Albumin Level 3.8 gm/dl (3.4-5.0); BUN Creatinine Ratio 13.2 (10-20); Calcium 8.7 mg/dl (8.5-10.1); Creatinine Clr Calc Pharmacy 75.4 ml/min; Est GFR (African American) 73.8; Est GFR (Non-African American) 63.6; Magnesium 2.2 mg/dl (1.8-2.4); Potassium 3.9 mmol/L (3.5-5.1)
[2020-11-05 13:40] LABS: Bilirubin,Total 0.4 mg/dl (0.2-1); Globulin 3.9 gm/dl (2.5-4.0); Total Protein 7.7 gm/dl (6.4-8.2)
[2020-11-05] MEDS ORDERED: SODIUM CHLORIDE 0.9% 1000ML 1,000 ML IV ONE (14:16)
--- NOTE | 2020-11-05 14:21 | Cardiology Consultation ---
Date of Consultation November 05, 2020 Assessment & Plan (1) Right groin wound: The patient's previously noted urticaria with hives and facial swelling has resolved. She now presents with drainage from her recent right femoral vein access site 11 days post transcatheter pulmonic valve replacement and placement of a wireless Medtronic Micra AV pacemaker system. The patient presents to the emergency department as per instructions from my office and from provider at the [facility], . This may have just been drainage from a resolving hematoma that had collected immediately post procedure. White blood cell count is mildly elevated, but she has been on a course of prednisone. Blood cultures have been obtained. Right groin ultrasound has been requested, and is pending at present. Depending upon ultrasound findings, will consider next course of treatment, perhaps a 2-week course of oral Augmentin. ADDENDUM, 2:26 PM: Patient's lactate is elevated at 3.6. US pending. Case discussed with Dr Lin. Complex history with old and new cardiac prosthetic devices, admission for IV antibiotics likely indicated. 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 She therefore return to [place] and on 10/24/2020 underwent transcatheter pulmonic valve replacement utilizing a Bev prosthesis. She also underwent placement of a Medtronic Micra AV pacing system the same day. She tolerated the procedure well with the exception of a mild right femoral vein hematoma. She was discharged on clopidogrel in addition to her chronic treatment with aspirin 81 milligrams daily, and was also prescribed a 7 day course of Keflex. On 10/31/2020 she presented to the emergency department after hives and facial swelling. She was treated for an allergic reaction and received Solu-Medrol, IV Benadryl, and IV Pepcid. Both clopidogrel and Keflex were discontinued. She was discharged after an interval of observation with plans for ongoing oral Benadryl and Pepcid. That evening, I had spoken to her by phone for complaints of recurrent symptoms for which a tapering dose of prednisone prescribed. She notes that she was doing well up until yesterday at about 4 PM when she noted drainage from her right groin at the location of a femoral venous access site. She described that there has been bleeding post procedure from the site was sutured in the recovery room post procedure on 10/24/2020. She describes having had drainage of dark brown blood and serosanguineous drainage that there was a trotter, and then it tapered off and she has had mild serosanguineous drainage on a Band-Aid in the interim overnight. She is afebrile on vital signs, with a temperature 37.1 C, although she felt "warm "subjectively earlier today and she feels "off. Past Cardiac surgery, procedural history: - 1984 Aortic valve repair, complicated with complete heart block andPPM insertion - 1984 VSD and tricuspid repair - 1996 Ross procedure/new PPM insertion - 1996 - 2006 frequent PPM interrogations: normal AV conduction - 2006 PPM generator battery depletion detected - 2009 PPM generator extraction/ leadretained -2012 Left and right heart catheterization performed [facility] [place] [place], normal coronaries, elevated RV systolic pressures in the 64 mm Hg range - Implantation of Dual chamber Medtronic pacemaker placed, Dr Josafat Hawkins [facility] [place] [place] for complete AV block -Removal of Medtronic pacemaker, removal of right atrial and right ventricular leads at [facility] on 12/09/17due to concerns ofthoracic outlet syndrome, with swelling of her left upper arm -Implantable LINQ loop recorder on 12/09/17, [facility] -06/15/2020, recurrent third-degree heart block, 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 Cazares -10/31/2020, emergency department visit, [facility], hives, angioedema perhaps related to Keflex -4.7 centimeter ascending thoracic aortic aneurysm Allergies Allergy/AdvReac Type Severity Reaction Status Date / Time cephalexin [From Keflex] Allergy Severe FACIAL Unverified 11/05/20 13:44 SWELLING clopidogrel [From Plavix] Allergy Severe FACIAL Unverified 11/05/20 13:44 SWELLING spironolactone AdvReac Unknown Unknown Unverified 11/05/20 13:44 [From Aldactone] Home Medications Medication Instructions Recorded Confirmed Type aripiprazole 2 mg PO HS 06/15/20 11/05/20 History dextroamphetamine-amphetamine 20 mg PO TID 06/15/20 11/05/20 History etonogestrel-ethinyl estradiol 1 vag ring VAGINAL UD 06/15/20 11/05/20 History losartan 25 mg PO QAM 06/15/20 11/05/20 History adapalene 0.3 % topical gel 1 applic TOPICAL DAILY #45 g 08/02/20 11/05/20 Rx benzoyl peroxide 5 % topical 1 applic TOPICAL DAILY #142 g 08/02/20 11/05/20 Rx cleanser clindamycin phosphate 1 % topical 1 applic TOPICAL DAILY #30 ml 08/02/20 11/05/20 Rx solution montelukast 10 mg tablet 10 mg PO QAM tab 08/02/20 11/05/20 History Saccharomyces boulardii 250 mg 500 mg PO BID cap 09/25/20 11/05/20 History capsule clonazepam 2 mg tablet 3 mg PO HS PRN tab 09/25/20 11/05/20 History aspirin [Aspirin Low Dose] 160 mg PO QAM 10/31/20 11/05/20 History epinephrine 0.3 mg IM ONCE PRN #2 ea 10/31/20 11/05/20 Rx Patient History Medical History ADD (attention deficit disorder) Aortic valve insufficiency Depression Endometriosis Heart block, AV History of bicuspid aortic valve History of congenital heart disease Polycystic ovaries 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 SBE (subacute bacterial endocarditis) prophylaxis candidate Ventricular septal defect Surgical History H/O aortic valve repair (1984) H/O tricuspid valve repair (04/1995) H/O umbilical hernia repair (11/15/15) incarcerated umbilical hernia S/P section (2009) S/P laparoscopic cholecystectomy (11/15/15) S/P Ross procedure (1995) S/P tricuspid valve repair (1984) S/P VSD repair (1984) Status post biventricular cardiac pacemaker insertion (07/2017) w/ removal in Nov 2017 Status post placement of implantable loop recorder (11/2017) Family History Father Diabetes Coronary heart disease Hypertension Mother Hypertension Aunt Breast cancer paternal aunt Denies family history of Ovarian cancer Prostate cancer Myocardial infarction Colorectal cancer Social History Smoking Status: Former smoker Tobacco Type: Cigarettes packs per day: 1; Hx Alcohol Use: Yes Hx Substance Use: No Preferred Language: Australian Visual Impairment: No Limitations Hearing Ability: Normal Beliefs That Will Affect Care: None marital status: Current Living Situation: Family Current Living Situation Comment: Currently w/ son only current occupational status: employed 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[employer] How many Children do You have: 1 Feels Safe at Home: Yes caffeine: Yes during the past year weight has: remained stable Dental Care, Regularly: Yes Physical Activity Frequency: Other Seatbelt Use: always Sunscreen Use: Yes Review of Systems Review of Systems: All systems reviewed & are unremarkable except as noted in HPI & below Physical Exam Physical Exam: Temp Pulse Resp BP Pulse Ox 37.1 C 97 H 18 139/84 98 11/05/20 12:02 11/05/20 12:02 11/05/20 12:02 11/05/20 12:02 11/05/20 12:02 Constitutional: WD/WN, vitals as above Respiratory: normal respiratory effort, lungs clear to auscultation Cardiovascular: RRR, no murmur, no edema Right groin reveals 1/2 cm diameter puncture wound, no significant surrounding edema, no drainage could be expressed, nontender on palpation Results & Data ([facility]) Vital Signs (Past 12 Hours) Vital Signs Temp Pulse Resp BP Pulse Ox 11/05/20 12:02 37.1 C 97 H 18 139/84 98 Laboratory Results Cardiac Enzymes 11/05/20 Range/Units 13:06 AST 11 L (15-37) U/L Coagulation 11/05/20 Range/Units 13:06 PT 10.1 (9.0-12.0) Seconds APTT 24.2 (21.0-31.0) Seconds CBC 11/05/20 Range/Units 13:06 WBC 13.80 H (4.8-10.8) K/uL RBC 3.74 L (4.2-5.4) M/uL Hgb 12.2 (12.0-16.0) g/dL Hct 35.4 L (37-47) % Plt Count 281 (130-400) K/uL Neut # (Auto) 12.67 H (1.4-6.5) K/uL Lymph # (Auto) 0.84 L (1.2-3.4) K/uL [place] # (Auto) 0.19 (0.11-0.59) K/uL Eos # (Auto) 0.00 (0-0.5) K/uL Baso # (Auto) 0.01 (0-0.2) K/uL Comprehensive Metabolic Panel 11/05/20 Range/Units 13:06 Sodium 137 (136-145) mmol/L Potassium 3.9 (3.5-5.1) mmol/L Chloride 105 (98-107) mmol/L Carbon Dioxide 24 (21-32) mmol/L BUN 14 (7-18) mg/dl Creatinine 1.10 (0.6-1.2) mg/dl Glucose 222 H (70-99) mg/dl Calcium 8.7 (8.5-10.1) mg/dl AST 11 L (15-37) U/L ALT 32 (12-78) U/L Alkaline Phosphatase 80 (45-117) U/L Total Protein 7.7 (6.4-8.2) gm/dl Albumin 3.8 (3.4-5.0) gm/dl Intake and Output 11/04/20 11/05/20 11/05/20 22:59 06:59 14:59 Other: Weight 79.7 kg Weight Measurement Method Chair Scale Patient Weight 11/06/20 06:59 Weight 79.7 kg Diagnostic Findings EKG performed today 11/05/2020 at 1304 revealed normal sinus rhythm 86 bpm, nonspecific repolarization abnormality, unchanged compared to 12/16/2019.
[2020-11-05] MEDS ORDERED: PIPERACILL/TAZOBAC CONSULT ACTIVE PRN ×2 (14:24→19:29)
[2020-11-05] MEDS ORDERED: PIPERACILLIN/TAZOBACTAM 4.5 GM/120 ML BAG IV ONE (14:24)
[2020-11-05] MEDS ORDERED: VANCOMYCIN CONSULT ACTIVE PRN (14:24)
[2020-11-05] MEDS ORDERED: VANCOMYCIN HCL 1,500 MG in SODIUM CHLORIDE 0.9% 500 ML IV ONE (14:24)
--- NOTE | 2020-11-05 15:00 | History & Physical Report ---
Date of Service November 05, 2020 Assessment & Plan (1) Right groin wound: No clear infection and WBC possible explained by prednisone use. However given recent pulmonic valve replacement agree with treating with antibiotics pending wound and blood cultures. Continue Vancomycin and Zosyn CRP and ESR with AM labs Follow up wound and blood cultures Consult cardiology (2) Acidosis, lactic: Unclear etiology but improving and will repeat with AM labs. Possible sign of infection in setting of Adderall use. IV fluids overnight. Encourage PO intake. (3) Heart block, AV: Intermittent. Admit to [facility] telemetry Status post Medtronic Micra AV pacemaker (4) S/P pulmonary valve replacement: Recent procedure on 10/24/2020 Continue aspirin 160 mg p.o. every morning (5) History of bicuspid aortic valve: (6) ADD (attention deficit disorder): Hold Adderall due to increased lactate Admission and Anticipated Discharge Date Admission Date: 11/05/2020 History of Present Illness Chief Complaint: Right groin wound Primary Care Provider: DO Nery Rios Antonella is a 31-year-old female with complex congenital cardiac history who presents to the ER on advice of her professor of fine art due to a right groin wound 11 days post transcatheter pulmonic valve replacement and placement of a wireless Medtronic Micra AV pacemaker via right femoral vein. Reportedly had a mild right femoral vein hematoma postprocedure and was discharged with a 7-day course of Keflex. Unfortunately she had an allergic reaction 7 days later with hives and severe facial swelling. She was seen in the ER and suspected to be secondary to either Keflex or clopidogrel that was started post procedure. She was treated with IV dexamethasone, Benadryl and famotidine for an allergic reaction. Both these medications were stopped and she was discharged home with an EpiPen and advised to take Benadryl and Pepcid. She was later prescribed a course of prednisone by her professor of fine art due to recurrent/persistent symptoms later that night (last dose taken yesterday). Regarding her right groin wound. This started off as a mild hematoma post procedure as above. Initially she was doing well with this until yesterday approximately 4 PM she noticed drainage from her right groin which was dark brown/green blood and serosanguineous which subsequently tapered off. No pus seen. However she has had ongoing serosanguineous since this time. She called her professor of fine art who recommended coming to the emergency room for further e valuation. She has already been seen by Dr. Patel her professor of fine art in the emergency room who recommends admission with IV antibiotics due to concern for infection in the setting of WBC 13.8, lactate 3.6 and risk to recently replaced pulmonic valve. In addition she reports being on and off fluconazole since January for recurrent oral thrush. However no cultures have grown any fungus. She last took fluconazole 6 days ago prior to coming to the ER. She reports these white spots mainly on her tongue but also the ulcers in her mouth clear up with IV antibiotics and did not get worse with her recent course of prednisone. She denies any current active lesions. In the ER she was started on vancomycin and Zosyn per cardiology recommendations and referred to medicine for admission for ongoing management. Allergies Allergy/AdvReac Type Severity Reaction Status Date / Time cephalexin [From Keflex] Allergy Severe FACIAL Unverified 11/05/20 13:44 SWELLING clopidogrel [From Plavix] Allergy Severe FACIAL Unverified 11/05/20 13:44 SWELLING spironolactone AdvReac Unknown Unknown Unverified 11/05/20 13:44 [From Aldactone] Home Medications Medication Instructions Recorded Confirmed Type aripiprazole 2 mg PO HS 06/15/20 11/05/20 History dextroamphetamine-amphetamine 20 mg PO TID 06/15/20 11/05/20 History etonogestrel-ethinyl estradiol 1 vag ring VAGINAL UD 06/15/20 11/05/20 History losartan 25 mg PO QAM 06/15/20 11/05/20 History adapalene 0.3 % topical gel 1 applic TOPICAL DAILY #45 g 08/02/20 11/05/20 Rx benzoyl peroxide 5 % topical 1 applic TOPICAL DAILY #142 g 08/02/20 11/05/20 Rx cleanser clindamycin phosphate 1 % topical 1 applic TOPICAL DAILY #30 ml 08/02/20 11/05/20 Rx solution montelukast 10 mg tablet 10 mg PO QAM tab 08/02/20 11/05/20 History Saccharomyces boulardii 250 mg 500 mg PO BID cap 09/25/20 11/05/20 History capsule clonazepam 2 mg tablet 3 mg PO HS PRN tab 09/25/20 11/05/20 History aspirin [Aspirin Low Dose] 160 mg PO QAM 10/31/20 11/05/20 History epinephrine 0.3 mg IM ONCE PRN #2 ea 10/31/20 11/05/20 Rx Past Med/Surg History Medical History ADD (attention deficit disorder) Aortic valve insufficiency Depression Endometriosis Heart block, AV History of bicuspid aortic valve History of congenital heart disease Polycystic ovaries Right jxpjdfmof-wc-iikpvdjmi artery (RV-PA) conduit obstruction SBE (subacute bacterial endocarditis) prophylaxis candidate Ventricular septal defect Surgical History H/O aortic valve repair (1984) H/O tricuspid valve repair (04/1995) H/O umbilical hernia repair (11/15/15) incarcerated umbilical hernia S/P cardiac pacemaker procedure (10/24/20) Medtronic Micra AV pacing system S/P section (2009) S/P laparoscopic cholecystectomy (11/15/15) S/P pulmonary valve replacement (~10/24/20) Bev transcatheter pulmonic valve replacement S/P Ross procedure (1995) S/P tricuspid valve repair (1984) S/P VSD repair (1984) Status post biventricular cardiac pacemaker insertion (07/2017) w/ removal in Nov 2017 Status post placement of implantable loop recorder (11/2017) Family History Father Diabetes Coronary heart disease Hypertension Mother Hypertension Aunt Breast cancer paternal aunt Denies family history of Ovarian cancer Prostate cancer Myocardial infarction Colorectal cancer Social History Smoking Status: Former smoker Tobacco Type: Cigarettes packs per day: 1; Second Hand Exposure: No; Do You Dip or Chew Tobacco: No; Tobacco Cessation Education Requested by Patient: No Hx Alcohol Use: No Hx Substance Use: No Preferred Language: Urdu Communication Ability: Effective Visual Impairment: No Limitations Hearing Ability: Normal Landing Signal Officer Required: No Beliefs That Will Affect Care: None marital status: Current Living Situation: Family Current Living Situation Comment: patient lives with son current occupational status: employed 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[employer] How 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 Children do You have: 1 Other Information That Helps Us Care for You: No Feels Safe at Home: Yes Safety Concerns: Feels Safe At This Time caffeine: Yes during the past year weight has: remained stable Dental Care, Regularly: Yes Physical Activity Frequency: Other Seatbelt Use: always Sunscreen Use: Yes Assistive Devices: None Review of Systems Review of Systems: All systems reviewed & are unremarkable except as noted in HPI & below Physical Exam Constitutional: well developed and well nourished; no acute distress Eyes: PERRL, conjunctivae normal, anicteric sclerae ENMT: external ear and nose normal, oropharynx normal Respiratory: normal respiratory effort, lungs clear to auscultation Cardiovascular: Rate/Rhythm: regular rate and regular rhythm Heart Sounds: + murmur (RUSB systolic ejection) Vessels: no JVD Extremities: normal capillary refill; no calf tenderness and no pedal edema Gastrointestinal (Abdomen): normal bowel sounds, soft, nontender, no hepatosplenomegaly Musculoskeletal: no cyanosis or clubbing, extremities motor strength 5/5 Skin: 5 mm open wound in the right groin, no pus, 2 cm surrounding erythema without swelling, nontender, no tracking, no enlarged inguinal lymphadenopathy Neurologic: moves all extremities and awake; not confused Psychiatric: A+Ox3, euthymic affect Results & Data Results & Data ([facility]) Vital Signs (Past 12 Hours) Vital Signs Temp Pulse Resp BP Pulse Ox 11/05/20 12:02 37.1 C 97 H 18 139/84 98 Diagnostic Findings XR chest 1V portable IMPRESSION: No acute cardiopulmonary findings. RIGHT GROIN ULTRASOUND IMPRESSION: Small subcutaneous fluid collection extending to the cutaneous surface within the right groin region measuring 14 x 6 x 3 mm. This is avascular. RIGHT GROIN ULTRASOUND IMPRESSION: No right groin pseudoaneurysm. Medications Administered ER medications given: Augmentin 875 mg p.o. NSS 1L bolus Zosyn 4.5 g IV Vancomycin 1.5 g IV ECG Indication: other Rate (beats per minute): 86 Rhythm: normal sinus Findings: + nonspecific-ST abn Comparison ECG Date: from (June 15, 2020) Change: no significant change Code Status & VTE Plan Code Status Full VTE Prophylaxis Plan VTE Prophylaxis will be ordered: No PG Care Time/CCT Total # of Minutes Spent Total Time Spent with Patient: Total time spent is greater than 50% in coordination of care (as documented) at patient's floor/unit and/or counseling patient: Coding Level of Care Code 47090 Initial Inpt Care Lvl 2 Diagnoses Right groin wound S31.109A Acidosis, lactic E87.2 Heart block, AV I44.30 S/P pulmonary valve replacement Z95.2 History of bicuspid aortic valve Z87.74 ADD (attention deficit disorder) F98.8
--- NOTE | 2020-11-05 15:44 | Ultrasound Report ---
SOFT TISSUE ULTRASOUND THE RIGHT INGUINAL REGION CLINICAL HISTORY: right groin ?fluid collection COMPARISON STUDY: None FINDINGS: There is a small subcutaneous fluid collection within the right groin/inguinal region measu ring 14 x 6 x 3 mm. This appears avascular. IMPRESSION: Small subcutaneous fluid collection extending to the cutaneous surface within the right groin region measuring 14 x 6 x 3 mm. This is avascular. ACT 112: Negative or not required by law. Electronically signed by: Ehsan Ramon M.D. 11/05/2020 3:42 PM
--- NOTE | 2020-11-05 15:47 | Ultrasound Report ---
RIGHT GROIN ULTRASOUND CLINICAL HISTORY: Question pseudoaneurysm Rt groin? COMPARISON STUDY: CT of the abdomen and pelvis October 17, 2015. TECHNIQUE: Grayscale, color and duplex Doppler sonography of the right groin was performed. FINDINGS: The right common femoral artery and vein are patent. No right groin pseudoaneurysm is ident ified. IMPRESSION: No right groin pseudoaneurysm. ACT 112: Negative or not required by law. Electronically signed by: Cristiano Park M.D. 11/05/2020 3:45 PM
[2020-11-05] MEDS ORDERED: POLYETHYLENE (MIRALAX) 17 GM PACK PO PRN (19:29)
[2020-11-05] MEDS ORDERED: ACETAMINOPHEN 325 MG TAB PO PRN (19:29)
[2020-11-05] MEDS ORDERED: ALUMINUM/MAGNESIUM SUSP 30 ML UDC PO PRN (19:29)
[2020-11-05] MEDS ORDERED: VANCOMYCIN TROUGH ONE (20:00)
--- NOTE | 2020-11-05 20:10 | Emergency Department Note ---
History of Present Illness General Chief complaint: Infection, Wound Stated complaint: pulm value done 12.9 incision on groin opened up Time Seen by Provider: 11/05/20 12:15 Source: patient, RN notes reviewed and old records reviewed Mode of arrival: ambulatory Limitations: no limitations History of Present Illness Provider complaint: drainage from Rt femoral wound Onset (ago): day(s) 1 Location: lower extremity and right Severity: mild Pain Consistency: + intermittent Maximum Pain Intensity: 3 Current Pain Intensity: 3 Quality: + aching Relieved By: + immobilization Exacerbated By: + movement Associated symptoms: no chest pain, no cough, no fever/chills, no headaches, no nausea/vomiting and no shortness of breath Treatments prior to arrival: none This is a 39-year-old female who presents emergency department over concerns that she has drainage coming from her right groin wound. The patient has a hi story of multiple heart surgeries and has multiple valves in place. The patient reports she recently had a replacement pulmonic valve done at the [facility]. She was to take Keflex as well as Plavix however these were stopped due to facial swelling approximately 1 week ago she was then placed on a steroid. Patient became concerned because she began having drainage from the right leg wound. She denies any fevers or chills. Home Medications Medication Instructions Recorded Confirmed Type aripiprazole 2 mg PO HS 06/15/20 11/05/20 History dextroamphetamine-amphetamine 20 mg PO TID 06/15/20 11/05/20 History etonogestrel-ethinyl estradiol 1 vag ring VAGINAL UD 06/15/20 11/05/20 History losartan 25 mg PO QAM 06/15/20 11/05/20 History adapalene 0.3 % topical gel 1 applic TOPICAL DAILY #45 g 08/02/20 11/05/20 Rx benzoyl peroxide 5 % topical 1 applic TOPICAL DAILY #142 g 08/02/20 11/05/20 Rx cleanser clindamycin phosphate 1 % topical 1 applic TOPICAL DAILY #30 ml 08/02/20 11/05/20 Rx solution montelukast 10 mg tablet 10 mg PO QAM tab 08/02/20 11/05/20 History Saccharomyces boulardii 250 mg 500 mg PO BID cap 09/25/20 11/05/20 History capsule clonazepam 2 mg tablet 3 mg PO HS PRN tab 09/25/20 11/05/20 History aspirin [Aspirin Low Dose] 160 mg PO QAM 10/31/20 11/05/20 History epinephrine 0.3 mg IM ONCE PRN #2 ea 10/31/20 11/05/20 Rx Allergies Allergy/AdvReac Type Severity Reaction Status Date / Time cephalexin [From Keflex] Allergy Severe FACIAL Unverified 11/05/20 13:44 SWELLING clopidogrel [From Plavix] Allergy Severe FACIAL Unverified 11/05/20 13:44 SWELLING spironolactone AdvReac Unknown Unknown Unverified 11/05/20 13:44 [From Aldactone] Past Med/Surg History Medical History ADD (attention deficit disorder) Aortic valve insufficiency Depression Endometriosis Heart block, AV History of bicuspid aortic valve History of congenital heart disease Polycystic ovaries 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 SBE (subacute bacterial endocarditis) prophylaxis candidate Ventricular septal defect Surgical History H/O aortic valve repair (1984) H/O tricuspid valve repair (04/1995) H/O umbilical hernia repair (11/15/15) incarcerated umbilical hernia S/P section (2009) S/P laparoscopic cholecystectomy (11/15/15) S/P Ross procedure (1995) S/P tricuspid valve repair (1984) S/P VSD repair (1984) Status post biventricular cardiac pacemaker insertion (07/2017) w/ removal in Nov 2017 Status post placement of implantable loop recorder (11/2017) Family History Father Diabetes Coronary heart disease Hypertension Mother Hypertension Aunt Breast cancer paternal aunt Denies family history of Ovarian cancer Prostate cancer Myocardial infarction Colorectal cancer Social History Smoking Status: Former smoker Tobacco Type: Cigarettes packs per day: 1; Second Hand Exposure: No; Do You Dip or Chew Tobacco: No; Tobacco Cessation Education Requested by Patient: No Hx Alcohol Use: No Hx Substance Use: No Preferred Language: Pashto Communication Ability: Effective Visual Impairment: No Limitations Hearing Ability: Normal Budget Technician Required: No Beliefs That Will Affect Care: None marital status: Current Living Situation: Family Current Living Situation Comment: patient lives with son current occupational status: employed 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[employer] How many Children do You have: 1 Other Information That Helps Us Care for You: No Feels Safe at Home: Yes Safety Concerns: Feels Safe At This Time caffeine: Yes during the past year weight has: remained stable Dental Care, Regularly: Yes Physical Activity Frequency: Other Seatbelt Use: always Sunscreen Use: Yes Assistive Devices: None Review of Systems A total of 10 systems reviewed and were otherwise negative Physical Exam Vital Signs Vital Signs - 24 hr 11/05/20 12:02 11/05/20 12:30 Temperature 37.1 C Temperature Source Oral Pulse Rate 97 H Pulse Rhythm Regular Pulse Strength Normal Respiratory Rate 18 Respiratory Effort / Characteristics Non-Labored Spontaneous Non-Labored Respiratory Depth Normal Respiratory Pattern Regular Blood Pressure 139/84 Blood Pressure Mean 102 Blood Pressure Position Sitting Pulse Oximetry 98 Oxygen Delivery Method Room Air Sepsis Recent Fever Within 48 Hours No Sepsis New/Unexplained Change in Mental Status No Sepsis Action Taken by Nursing No Action Required VITAL SIGNS - Vital signs and nursing notes were reviewed. GENERAL - 39-year-old female appearing stated age who is in no acute distress. Communicates well with provider and answers questions appropriately. SKIN - Dime sized ulcer RT groin drain serosanguinous fluid HEAD - NC/AT. EYES - PERRL with EOMI bilaterally. Sclera anicteric. Palpebral conjunctiva pink and moist with no injection noted. EARS - No deformities of external structures noted on gross examination bilaterally. No pain elicited with palpation of the tragus bilaterally. External auditory canals without discharge or otorrhea. Tympanic membranes pearly holliday without retraction or bulging. No fluid or purulent material visualized behind the TM. Handle of malleus, umbo, cone of light, pars tensa/flaccid all easily visualized. NOSE - Midline and without cyanosis. No epistaxis or purulent drainage noted. Septum midline without deviation or septal hematoma noted. MOUTH/OROPHARYNX - Without perioral cyanosis. Buccal mucosa pink and moist and without leukoplakia. Tongue midline with equal elevation of palate bilaterally. No tonsillar hypertrophy, erythema, or exudates noted. dentition noted. NECK - Neck with FROM. Supple to palpation. lymphadenopathy noted. No nuchal rigidity. LUNGS - Chest wall symmetric without accessory muscle use, intercostals retractions, or central cyanosis. Normal vesicular breath sounds CTA B/L. No wheezes, rales, or rhonchi appreciated. CARDIAC - RRR with S1/S2. No murmur, rubs, or gallops appreciated. ABDOMEN - Abdominal contour without pulsations or visible masses. BS normoactive all four quadrants. No tenderness, palpable masses, hepatosplenomegaly, or ascites noted. EXTREMITIES - No clubbing or peripheral cyanosis. No pretibial edema present. +3/5 radial, posterior tibial, and dorsalis pedis pulses palpated throughout. +5/5 strength noted in UE/LE bilaterally. NEUROLOGIC - Cranial nerves II through XII grossly intact. Sensory intact to light touch throughout. Patellar reflexes +2/4. PSYCH - A&Ox3 and cooperates fully with examiner. Pt is very pleasant and interacts well with examiner. Course Administered Medications Discontinued Medications Amoxicillin/Clavulanate Potassium (Amoxicillin/Clavulanate 875 Mg Tab) 1 tab PO NOW ONE Stop: 11/05/20 12:16 Last Admin: 11/05/20 13:16 Dose: 1 tab Documented by: [id number] Sodium Chloride (Nss 1000ml) 1,000 mls @ 999 mls/hr IV .Q1H1M ONE Stop: 11/05/20 15:16 Last Infusion: 11/05/20 16:01 Dose: 0 mls/hr Documented by: [id number] Admin: 11/05/20 14:57 Dose: 999 mls/hr Documented by: [id number] Piperacillin Sod/Tazobactam Sod (Zosyn) 4.5 gm in 120 mls @ 240 mls/hr IV NOW ONE Stop: 11/05/20 14:53 Last Infusion: 11/05/20 16:02 Dose: 0 mls/hr Documented by: [id number] Admin: 11/05/20 14:57 Dose: 240 mls/hr Documented by: [id number] Vancomycin HCl 1,500 mg/ (Sodium Chloride) 530 mls @ 200 mls/hr IV NOW ONE Stop: 11/05/20 17:02 Last Infusion: 11/05/20 17:49 Dose: 0 mls/hr Documented by: [id number] Admin: 11/05/20 14:57 Dose: 200 mls/hr Documented by: [id number] Medical Decision Making Differential Diagnosis Sepsis, UTI, pneumonia, metabolic, electrolyte abnormalities, cardiac sources, intracerebral event, toxicologic, neurologic, as well as other pathologies. Medical Records Attestation: I reviewed the patient's medical records. Home Medications Current Medication List: was personally reviewed by me Laboratory Data Attestation: I reviewed the patient's lab results. Result diagrams: 11/05/20 13:06 11/05/20 13:06 Lab Results 11/05/20 11/05/20 11/05/20 Range/Units 13:06 13:06 13:06 WBC 13.80 H (4.8-10.8) K/uL RBC 3.74 L (4.2-5.4) M/uL Hgb 12.2 (12.0-16.0) g/dL Hct 35.4 L (37-47) % MCV 94.7 (80-100) fL MCH 32.6 (25-34) pg MCHC 34.5 (32-36) g/dL RDW Std Deviation 44.6 (36.4-46.3) fL RDW Coeff of Christine 13.0 (11.5-14.5) % Plt Count 281 (130-400) K/uL MPV 10.8 H (7.4-10.4) fL Immature Gran % (Auto) 0.7 % Neut % (Auto) 91.7 % Lymph % (Auto) 6.1 % Schley % (Auto) 1.4 % Eos % (Auto) 0.0 % Baso % (Auto) 0.1 % Neut # (Auto) 12.67 H (1.4-6.5) K/uL Lymph # (Auto) 0.84 L (1.2-3.4) K/uL Schley # (Auto) 0.19 (0.11-0.59) K/uL Eos # (Auto) 0.00 (0-0.5) K/uL Baso # (Auto) 0.01 (0-0.2) K/uL Immature Gran # (Auto) 0.09 H (0.00-0.02) K/uL PT 10.1 (9.0-12.0) Seconds INR 1.0 (0.9-1.1) APTT 24.2 (21.0-31.0) Seconds PTT Ratio 0.9 Sodium 137 (136-145) mmol/L Potassium 3.9 (3.5-5.1) mmol/L Chloride 105 (98-107) mmol/L Carbon Dioxide 24 (21-32) mmol/L Anion Gap 8.0 (3-11) BUN 14 (7-18) mg/dl Creatinine 1.10 (0.6-1.2) mg/dl Est Cr Clr Drug Dosing 75.4 ml/min Est GFR ( Amer) 73.8 Est GFR (Non-Af Amer) 63.6 BUN/Creatinine Ratio 13.2 (10-20) Glucose 222 H (70-99) mg/dl Lactate (0.4-2.0) mmol/L Calcium 8.7 (8.5-10.1) mg/dl Magnesium 2.2 (1.8-2.4) mg/dl Total Bilirubin 0.4 (0.2-1) mg/dl AST 11 L (15-37) U/L ALT 32 (12-78) U/L Alkaline Phosphatase 80 (45-117) U/L Total Protein 7.7 (6.4-8.2) gm/dl Albumin 3.8 (3.4-5.0) gm/dl Globulin 3.9 (2.5-4.0) gm/dl Albumin/Globulin Ratio 1.0 (0.9-2) Procalcitonin (0-0.5) ng/ml COVID-19 Eval Order SARS-CoV-2, RNA, NAAT (NEGATIVE) 11/05/20 11/05/20 11/05/20 Range/Units 13:06 13:06 14:44 WBC (4.8-10.8) K/uL RBC (4.2-5.4) M/uL Hgb (12.0-16.0) g/dL Hct (37-47) % MCV (80-100) fL MCH (25-34) pg MCHC (32-36) g/dL RDW Std Deviation (36.4-46.3) fL RDW Coeff of Christine (11.5-14.5) % Plt Count (130-400) K/uL MPV (7.4-10.4) fL Immature Gran % (Auto) % Neut % (Auto) % Lymph % (Auto) % Schley % (Auto) % Eos % (Auto) % Baso % (Auto) % Neut # (Auto) (1.4-6.5) K/uL Lymph # (Auto) (1.2-3.4) K/uL Schley # (Auto) (0.11-0.59) K/uL Eos # (Auto) (0-0.5) K/uL Baso # (Auto) (0-0.2) K/uL Immature Gran # (Auto) (0.00-0.02) K/uL PT (9.0-12.0) Seconds INR (0.9-1.1) APTT (21.0-31.0) Seconds PTT Ratio Sodium (136-145) mmol/L Potassium (3.5-5.1) mmol/L Chloride (98-107) mmol/L Carbon Dioxide (21-32) mmol/L Anion Gap (3-11) BUN (7-18) mg/dl Creatinine (0.6-1.2) mg/dl Est Cr Clr Drug Dosing ml/min Est GFR ( Amer) Est GFR (Non-Af Amer) BUN/Creatinine Ratio (10-20) Glucose (70-99) mg/dl Lactate 3.6 H* (0.4-2.0) mmol/L Calcium (8.5-10.1) mg/dl Magnesium (1.8-2.4) mg/dl Total Bilirubin (0.2-1) mg/dl AST (15-37) U/L ALT (12-78) U/L Alkaline Phosphatase (45-117) U/L Total Protein (6.4-8.2) gm/dl Albumin (3.4-5.0) gm/dl Globulin (2.5-4.0) gm/dl Albumin/Globulin Ratio (0.9-2) Procalcitonin < 0.05 (0-0.5) ng/ml COVID-19 Eval [facility] SARS-CoV-2, RNA, NAAT (NEGATIVE) 11/05/20 11/05/20 Range/Units 14:44 15:49 WBC (4.8-10.8) K/uL RBC (4.2-5.4) M/uL Hgb (12.0-16.0) g/dL Hct (37-47) % MCV (80-100) fL MCH (25-34) pg MCHC (32-36) g/dL RDW Std Deviation (36.4-46.3) fL RDW Coeff of Christine (11.5-14.5) % Plt Count (130-400) K/uL MPV (7.4-10.4) fL Immature Gran % (Auto) % Neut % (Auto) % Lymph % (Auto) % Schley % (Auto) % Eos % (Auto) % Baso % (Auto) % Neut # (Auto) (1.4-6.5) K/uL Lymph # (Auto) (1.2-3.4) K/uL Schley # (Auto) (0.11-0.59) K/uL Eos # (Auto) (0-0.5) K/uL Baso # (Auto) (0-0.2) K/uL Immature Gran # (Auto) (0.00-0.02) K/uL PT (9.0-12.0) Seconds INR (0.9-1.1) APTT (21.0-31.0) Seconds PTT Ratio Sodium (136-145) mmol/L Potassium (3.5-5.1) mmol/L Chloride (98-107) mmol/L Carbon Dioxide (21-32) mmol/L Anion Gap (3-11) BUN (7-18) mg/dl Creatinine (0.6-1.2) mg/dl Est Cr Clr Drug Dosing ml/min Est GFR ( Amer) Est GFR (Non-Af Amer) BUN/Creatinine Ratio (10-20) Glucose (70-99) mg/dl Lactate 2.6 H* (0.4-2.0) mmol/L Calcium (8.5-10.1) mg/dl Magnesium (1.8-2.4) mg/dl Total Bilirubin (0.2-1) mg/dl AST (15-37) U/L ALT (12-78) U/L Alkaline Phosphatase (45-117) U/L Total Protein (6.4-8.2) gm/dl Albumin (3.4-5.0) gm/dl Globulin (2.5-4.0) gm/dl Albumin/Globulin Ratio (0.9-2) Procalcitonin (0-0.5) ng/ml COVID-19 Eval Order SARS-CoV-2, RNA, NAAT NEGATIVE (NEGATIVE) Imaging Data Radiologist's Impression: [facility], [phone] Ultrasound Report Patient: JEANNINE ROCHE Date: 11/05/20MR#: [id number]: 1962 JESS[place] RDAcct ID:[id number]: Date: 1980[facility] Zip: [place] [address]Mso: 39Location: EDSex: FRoom/Bed:Att Phy:Diagnosis: pulm value done 12.9 incision on groin opened upPri Phy: Keysha Roe, DOService Date: 11/05/20Fam Phy:Interpreting Phy: Ehsan Ramon MDAdmit Phy: Ordering Phy: James Christianson MD cc: ~ SOFT TISSUE ULTRASOUND THE RIGHT INGUINAL REGION CLINICAL HISTORY: right groin ?fluid collection COMPARISON STUDY: None FINDINGS: There is a small subcutaneous fluid collection within the right groin/inguinal region measuring 14 x 6 x 3 mm. This appears avascular. IMPRESSION: Small subcutaneous fluid collection extending to the cutaneous surface within the right groin region measuring 14 x 6 x 3 mm. This is luzma scular. ACT 112: Negative or not required by law. Electronically signed by: Ehsan Ramon M.D. 11/05/2020 3:42 PM Dictated: 11/05/20 1541Transcribed: 11/05/20 1541 [facility], [phone] Ultrasound Report Patient: JEANNINE ROCHE Date: 11/05/20MR#: [id number]: 1962 JESSICA RDAcct ID:[id number]: Date: 1980[facility] Zip: [place] [address]Liz: 39Location: EDSex: FRoom/Bed:Att Phy:Diagnosis: pulm value done 12.9 incision on groin opened upPri Phy: Keysha Roe, DOService Date: 11/05/20Fam Phy:Interpreting Phy: Cristiano Park MDAdmit Phy: Ordering Phy: Tj Lin MD cc: ~ RIGHT GROIN ULTRASOUND CLINICAL HISTORY: Question pseudoaneurysm Rt groin? COMPARISON STUDY: CT of the abdomen and pelvis October 17, 2015. TECHNIQUE: Grayscale, color and duplex Doppler sonography of the right groin was performed. FINDINGS: The right common femoral artery and vein are patent. No right groin ps eudoaneurysm is identified. IMPRESSION: No right groin pseudoaneurysm. ACT 112: Negative or not required by law. Electronically signed by: Cristiano Park M.D. 11/05/2020 3:45 PM Dictated: 11/05/20 1543Transcribed: 11/05/20 1543 [facility], [phone] XRay Report Patient: JEANNINE ROCHEmit Date: 11/05/20#: [id number]: 1963 [place] RDAcct ID:[id number]: Date: 1980City Zip: [place] [address]Fzr: 39Location: EDSex: FRoom/Bed:Att Phy:Diagnosis: pulm value done 12.9 incision on groin opened upPri Phy: Keysha Roe, DOService Date: 11/05/20Fa Phy:Interpreting Phy: Cristiano Park MDAdmit Phy: Ordering Phy: Tj Lin MD cc: ~ XR chest 1V portable CLINICAL HISTORY: SEPSIS COMPARISON STUDY: Chest radiograph June 15, 2020. Chest CT December 28, 2018. FINDINGS: An old right-sided lead is in place. There are pediatric median sternotomy wires. Cardiomediastinal silhouette is stable. An electronic device projects over the left chest wall. In addition, a prosthetic valve is noted, likely pulmonic. There is no evidence for pulmonary edema. No consolidation is noted. No pneumothorax or pleural effusion is noted. IMPRESSION: No acute cardiopulmonary findings. ACT 112: Negative or not required by law. Electronically signed by: Cristiano Park M.D. 11/05/2020 12:45 PM Dictated: 11/05/20 1243Transcribed: 11/05/20 1243 ECG Data Attestation: I personally reviewed and interpreted this ECG as follows: Indication: + other Rate (beats per minute): 86 Rhythm: + normal sinus ECG Intervals/blocks: + Normal QT-c (433) ECG [place]: + Normal ECG ST segments: no ST depression and no ST elevation Comparison ECG Date: from (06/15/2020) Change: no significant change MDM Narrative Patient was seen and evaluated as above in room B12. Review was performed of nursing notes and vital signs. I did review pertinent previous visits and patient history. After obtaining a thorough history and physical examination the above work up was performed. This is a 39-year-old female who presents the emergency department complaining of drainage from her right wound. The patient was supposed to be on antibiotics however had an allergic reaction. She does have an elevated lactate here as well as an elevation in her white blood cell count. Because of her multiple heart valves the decision was made to place the patient on IV antibiotics and obtain wound and blood cultures. I did discuss the case with both cardiology as well as the hospitalist service who did agree to meet the patient. Patient is in agreement with the treatment plan. An order was placed for continuous cardiac monitoring. The monitor shows a rate of 70 with Normal SInus rhythm. The patient was evaluated during a period of high volume and high acuity while the hospital was at overcapacity during the global COVID-19 pandemic, and that diagnosis was suspected/considered upon their initial presentation. Their evaluation, treatment and testing was consistent with current guidelines for patients who present with complaints or symptoms that may be related to COVID- 19. Impression & Plan Right groin wound, Acidosis, lactic Discharge Plan Visit Data Chief Complaint: Infection, Wound Stated Complaint: pulm value done 12.9 incision on groin opened up ED Provider: Tj Lin Discharge Problem: Right groin wound, Acidosis, lactic Patient Disposition: Admitted As Inpatient Discharge Instructions Interventions: ED Discharge Assessment Last Done: 11/05/20 19:07 Discharge Problem: Right groin wound Qualifiers: Encounter type: initial encounter Qualified Code(s): S31.109A - Unspecified open wound of abdominal wall, unspecified quadrant without penetration into peritoneal cavity, initial encounter
[2020-11-05] MEDS ORDERED: Nursing to Pharmacy Communication SCH (20:45)
[2020-11-05] MEDS: PIPERACILLIN/TAZOBACTAM 3.375 GM in DEXTROSE 5% 100 ML IV SCH (20:55)
[2020-11-05] MEDS: SACCHAROMYCES BOULARDII 250 MG CAP PO SCH (20:58)
[2020-11-05] MEDS: ARIPIprazole 1 MG/ML ORAL SOLN 150 ML BTL PO SCH (20:58)
[2020-11-05] MEDS: clonazePAM 1 MG TAB PO PRN (20:58)
[2020-11-05] MEDS: MONTELUKAST SODIUM 10 MG TABLET PO SCH (21:07)
[2020-11-05 21:14] LABS: Appearance Urine Clear (Clear); Bilirubin Urine Negative (Negative); Blood Urine Negative (Negative); Color Urine Yellow; Glucose Urine UA Negative (Negative); Ketones Urine Negative (Negative); Leukocyte Esterase Urine Negative (Negative); Nitrite Urine Negative (Negative); Protein Urine Negative (Negative); Specific Gravity Urine 1.012 (1.000-1.030); Urobilinogen Urine Negative (Negative)
[2020-11-05] MEDS: VANCOMYCIN HCL 1,250 MG in SODIUM CHLORIDE 0.9% 250 ML IV SCH (21:25)
[2020-11-05] MEDS: LACTATED RINGER'S 1,000 ML IV SCH (23:00)
[2020-11-06] MEDS: PIPERACILLIN/TAZOBACTAM 3.375 GM in DEXTROSE 5% 100 ML IV SCH ×3 (03:31→20:18)
[2020-11-06 06:29] LABS: Basophils # (auto) 0.01 K/uL (0-0.2); Basophils % (auto) 0.1 %; Eosinophils # (auto) 0.07 K/uL (0-0.5); Eosinophils % (auto) 0.7 %; Hematocrit (blood only) 31.4 % (37-47); Hemoglobin 10.8 g/dL (12.0-16.0); Immature Granulocytes # (auto) 0.07 K/uL (0.00-0.02); Immature Granulocytes % (auto) 0.7 %; Lymphocytes # (auto) 2.72 K/uL (1.2-3.4); Mean Corpuscular Hemoglobin 32.4 pg (25-34); Mean Corpuscular Hgb Conc 34.4 g/dL (32-36); Mean Corpuscular Volume 94.3 fL (80-100); Mean Platelet Volume 10.6 fL (7.4-10.4); Monocytes # (auto) 0.63 K/uL (0.11-0.59); Monocytes % (auto) 6.3 %; Neutrophils # (auto) 6.57 K/uL (1.4-6.5); Neutrophils % (auto) 65.2 %; Platelet Count 213 K/uL (130-400); RDW Standard Deviation 44.7 fL (36.4-46.3); Red Blood Count 3.33 M/uL (4.2-5.4); White Blood Count 10.07 K/uL (4.8-10.8)
[2020-11-06] MEDS: VANCOMYCIN HCL 1,250 MG in SODIUM CHLORIDE 0.9% 250 ML IV SCH ×2 (06:31→16:20)
[2020-11-06 06:53] LABS: BUN Creatinine Ratio 13.4 (10-20); Calcium 7.7 mg/dl (8.5-10.1); Creatinine Clr Calc Pharmacy 105.9 ml/min; Est GFR (African American) 110.1; Potassium 3.5 mmol/L (3.5-5.1)
[2020-11-06 06:55] LABS: C Reactive Protein 1.2 mg/dl (0-0.29)
[2020-11-06] MEDS: LACTATED RINGER'S 1,000 ML IV SCH (07:57)
[2020-11-06] MEDS: SACCHAROMYCES BOULARDII 250 MG CAP PO SCH ×2 (07:58→20:21)
[2020-11-06] MEDS: LOSARTAN POTASSIUM 25 MG TAB PO SCH (07:58)
[2020-11-06] MEDS: ASPIRIN 81 MG ECTAB PO SCH (07:58)
[2020-11-06] MEDS ORDERED: MONTELUKAST SODIUM 10 MG TABLET PO SCH (09:00)
--- NOTE | 2020-11-06 10:16 | Pharmacy Report ---
Pharmacy Abx Dose Short Note - Date of Service November 06, 2020 - Assessment & Plan Assessment 39 year old F receiving vancomycin and zosyn for R groin infection. Patient with recent valve replacement. Cultures pending Day #2 of antimicrobial therapy. Plan Vancomycin * Received 1500 mg of vancomycin yesterday, and started on 1250 mg (~15 mg/kg) IV q 10 hrs. Initial maintenance dose of vancomycin started likely due to not full loading dose being given * Scr rapidly changing today - plan to check vancomycin level prior to the 1600 dose today to ensure therapeutic. Note, level will be drawn before the 4th total vancomycin dose * Will follow and adjust dosing as necessary Pharmacy will continue to follow and will adjust dose/frequency as necessary. Thank you.
--- NOTE | 2020-11-06 10:26 | Cardiology Progress Note ---
Date of Service November 06, 2020 Assessment & Plan (1) Right groin wound: Complex past and recent history as noted in my consult note, 11/05/20. Recent drainage from right femoral vein access site. Perhaps just drainage from prior hematoma, although occult abscess a consideration and given her history of Ross procedure, recent transcatheter pulmonic valve replacement, pacemaker, and remote h/o endocarditis as a child , she is at high risk or infectious complication. Cultures negative thus far. ESR is within normal limits. CRP very minimally elevated at 1.2 mg/dl. US findings not suggestive of large residual fluid collection. Case discussed by phone with Dr Romano of vascular surgery who recommended non contrast CT of the area for further visualization. He is not available today, however, will be back in the hospital tomorrow. Continue IV vancomycin and Zosyn. DC IV fluids. Ambulate as tolerated, may need to consider adding lovenox for DVT prophylaxis. Echo completed, will review. Admission and Anticipated Discharge Date Admission Date: November 05, 2020 Subjective Ms. Berman is seen in cardiology follow up. Overall , she feels improved. Had a restless night as her roommate was very ill last night. She has changed rooms and is resting comfortably now. [place] "cold" overnight, however afebrile. Telemetry reveals SR in the 80s. Physical Exam Physical Exam: Temp Pulse Resp BP Pulse Ox 36.7 C 63 18 98/62 L 100 11/06/20 06:37 11/06/20 09:32 11/06/20 06:37 11/06/20 06:37 11/06/20 06:37 Constitutional: WD/WN, vitals as above Respiratory: normal respiratory effort, lungs clear to auscultation Cardiovascular: Rate/Rhythm: regular rhythm Heart Sounds: + murmur (1/6 SM) Vessels: no JVD Extremities: no edema Right groin, soft, mild ongoing serosanguineous drainage Results & Data ([facility]) Vital Signs (Past 12 Hours) Vital Signs Temp Pulse Pulse Resp BP Pulse Ox 11/06/20 09:32 63 11/06/20 06:37 36.7 C 69 18 98/62 L 100 11/06/20 03:37 77 11/06/20 03:30 36.7 C 69 18 104/69 99 11/05/20 23:00 36.9 C 75 18 91/59 L 94 Laboratory Results Cardiac Enzymes 11/05/20 Range/Units 13:06 AST 11 L (15-37) U/L Coagulation 11/05/20 Range/Units 13:06 PT 10.1 (9.0-12.0) Seconds APTT 24.2 (21.0-31.0) Seconds CBC 11/05/20 11/06/20 Range/Units 13:06 05:56 WBC 13.80 H 10.07 (4.8-10.8) K/uL RBC 3.74 L 3.33 L (4.2-5.4) M/uL Hgb 12.2 10.8 L (12.0-16.0) g/dL Hct 35.4 L 31.4 L (37-47) % Plt Count 281 213 (130-400) K/uL Neut # (Auto) 12.67 H 6.57 H (1.4-6.5) K/uL Lymph # (Auto) 0.84 L 2.72 (1.2-3.4) K/uL Forrest # (Auto) 0.19 0.63 H (0.11-0.59) K/uL Eos # (Auto) 0.00 0.07 (0-0.5) K/uL Baso # (Auto) 0.01 0.01 (0-0.2) K/uL Comprehensive Metabolic Panel 11/05/20 11/06/20 Range/Units 13:06 05:56 Sodium 137 139 (136-145) mmol/L Potassium 3.9 3.5 (3.5-5.1) mmol/L Chloride 105 108 H (98-107) mmol/L Carbon Dioxide 24 26 (21-32) mmol/L BUN 14 11 (7-18) mg/dl Creatinine 1.10 0.79 D (0.6-1.2) mg/dl Glucose 222 H 91 (70-99) mg/dl Calcium 8.7 7.7 L (8.5-10.1) mg/dl AST 11 L (15-37) U/L ALT 32 (12-78) U/L Alkaline Phosphatase 80 (45-117) U/L Total Protein 7.7 (6.4-8.2) gm/dl Albumin 3.8 (3.4-5.0) gm/dl Intake and Output 11/05/20 11/06/20 11/06/20 22:59 06:59 14:59 Intake Total 1650 / 3040 390 / 3040 1115 / 1115 Output Total 500 / 500 Balance 1150 / 2540 390 / 2540 1115 / 1115 Intake: IV 1650 / 3040 390 / 3040 1115 / 1115 Lr 1,000 ml @ 125 mls/hr IV . 1000 / 1000 Q8H JIM Rx#:[id number] Zosyn 3.375 gm In D5 100 ml @ 115 / 115 115 / 115 28.75 mls/hr IV Q8H JIM Rx#: [id number] ZOSYN 4.5 gm In 120 ml @ 240 120 / 120 mls/hr IV NOW ONE Rx#:[id number] Nss 1000ML 1,000 ml @ 999 mls/ 1000 / 1000 hr IV .Q1H1M ONE Rx#:[id number] Vancomycin HCl 1,250 mg In Nss 275 / 275 250 ml @ 200 mls/hr IV Q10H [facility] Rx#:[id number] Vancomycin HCl 1,500 mg In Nss 530 / 530 500 ml @ 200 mls/hr IV NOW ONE Rx#:[id number] Output: Urine 500 / 500 Other: Weight 81.3 kg Weight Measurement Method Standing Scale (1) Right groin wound Encounter type: initial encounter Qualified Code(s): S31.109A - Unspecified open wound of abdominal wall, unspecified quadrant without penetration into peritoneal cavity, initial encounter
--- NOTE | 2020-11-06 11:29 | CT Scan Report ---
CT pelvis wo con CT DOSE: 353.30 mGy.cm CLINICAL HISTORY: Inguinal pain. Possible abscess. TECHNIQUE: Patient was scanned without intravenous or oral contrast. A dose lowering technique was u tilized adhering to the principles of ALARA. COMPARISON STUDY: December 28, 2018 FINDINGS: A pessary ring is visualized. There is no evidence of pathologic adenopathy. The appendix appears normal. There is no evidence of acute diverticulitis. There are no abnormal pelvic masses. There is infiltration of the fat in the right inguinal region, likely secondary to prior catheterizat ion. There are no fluid collections to indicate an abscess. IMPRESSION: 1. Infiltration of the fat in the right inguinal region, likely secondary to prior catheterization 2. There are no fluid collections to indicate an abscess. ACT 112: Negative or not required by law. Electronically signed by: Ehsan Ramon M.D. 11/06/2020 11:28 AM
--- NOTE | 2020-11-06 12:21 | Hospitalist Progress Note ---
Date of Service November 06, 2020 Assessment & Plan (1) Right groin wound: Initial erythema surrounding the wound has dramatically improved therefore suspect this was a true cellulitis surrounding her open wound. Discussed with Dr. Patel regarding fluid collection still present on ultrasou nd and after discussing with Dr. Romano plan is for CT without contrast of the area. This was subsequently performed and showed no fluid collections to indicate an abscess. ESR 2/CRP 1.2. WBC improving (although unclear if this is infection or prednisone induced) Continue IV antibiotics for 48 hours given recent pulmonary valve replacement and high severity/morbidity if this was to be infected. If blood cultures negative after 48 hours can switch to p.o. antibiotics for uncomplicated cellulitis and discharge at that time. (2) Acidosis, lactic: Resolved. IV fluids stopped to avoid heart failure. (3) Heart block, AV: Intermittent. 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 every morning (5) History of bicuspid aortic valve: (6) ADD (attention deficit disorder): Hold Adderall due to increased lactate Admission and Anticipated Discharge Date Admission Date: November 05, 2020 Subjective Patient feels much same as yesterday. Chills overnight but she reports this is not unusual for her. Did not get a good night sleep. is also in alcohol rehabilitation therefore is visibly upset when seen. Review of Systems Review of Systems: All systems reviewed & are unremarkable except as noted in HPI & below Physical Exam Constitutional: well developed and well nourished; no acute distress ENMT: external ear and nose normal, oropharynx normal Respiratory: normal respiratory effort, lungs clear to auscultation Cardiovascular: Rate/Rhythm: regular rate and regular rhythm Heart Sounds: + murmur (RUSB systolic ejection) Skin: Erythema on admission surrounding her right groin wound now mostly resolved. Continuous serosanguineous drainage throughout the night. No pus. Results & Data Results & Data ([facility]) Vital Signs (Past 12 Hours) Vital Signs Temp Pulse Pulse Resp BP Pulse Ox 11/06/20 09:32 63 11/06/20 06:37 36.7 C 69 18 98/62 L 100 11/06/20 03:37 77 11/06/20 03:30 36.7 C 69 18 104/[address] pelvis wo con IMPRESSION: 1. Infiltration of the fat in the right inguinal region, likely secondary to prior catheterization 2. There are no fluid collections to indicate an abscess. PG Care Time/CCT Total # of Minutes Spent Total Time Spent with Patient: Total time spent is greater than 50% in coordination of care (as documented) at patient's floor/unit and/or counseling patient: Coding Level of Care Code 19899 Subseq Hosp Care Lvl 2 Diagnoses Right groin wound S31.109A Encounter type: initial encounter Acidosis, lactic E87.2 Heart block, AV I44.30 S/P pulmonary valve replacement Z95.2 History of bicuspid aortic valve Z87.74 ADD (attention deficit disorder) F98.8 (1) Right groin wound Encounter type: initial encounter Qualified Code(s): S31.109A - Unspecified open wound of abdominal wall, unspecified quadrant without penetration into peritoneal cavity, initial encounter
[2020-11-06] MEDS ORDERED: VANCOMYCIN TROUGH ONE (15:30)
--- NOTE | 2020-11-06 15:54 | Electrocardiogram Report ---
Test Reason : Blood Pressure : / mmHG Vent. Rate : 086 BPM Atrial Rate : 086 BPM P-R Int : 146 ms QRS Dur : 078 ms QT Int : 362 ms P-R-T Axes : 055 063 080 degrees QTc Int : 433 ms Normal sinus rhythm Nonspecific ST abnormality Abnormal ECG When compared with ECG of 15-JUN-2020 12:02, No significant change was found Confirmed by Kiko Mayfield ([id number]) on 11/06/2020 3:54:21 PM Referred By: REFERRED SELF Confirmed By:Kiko Mayfield
[2020-11-06] MEDS: ARIPIprazole 1 MG/ML ORAL SOLN 150 ML BTL PO SCH (20:21)
[2020-11-06] MEDS: MONTELUKAST SODIUM 10 MG TABLET PO SCH (20:22)
[2020-11-06] MEDS: clonazePAM 1 MG TAB PO PRN (20:23)
[2020-11-07] MEDS: VANCOMYCIN HCL 1,250 MG in SODIUM CHLORIDE 0.9% 250 ML IV SCH ×2 (01:29→08:31)
[2020-11-07] MEDS: PIPERACILLIN/TAZOBACTAM 3.375 GM in DEXTROSE 5% 100 ML IV SCH (04:40)
[2020-11-07 05:59] LABS: Basophils # (auto) 0.01 K/uL (0-0.2); Basophils % (auto) 0.1 %; Eosinophils # (auto) 0.09 K/uL (0-0.5); Eosinophils % (auto) 0.8 %; Hemoglobin 11.1 g/dL (12.0-16.0); Immature Granulocytes # (auto) 0.07 K/uL (0.00-0.02); Immature Granulocytes % (auto) 0.6 %; Lymphocytes # (auto) 2.33 K/uL (1.2-3.4); Lymphocytes % (auto) 21.4 %; Mean Corpuscular Hemoglobin 31.9 pg (25-34); Mean Corpuscular Hgb Conc 33.6 g/dL (32-36); Mean Corpuscular Volume 94.8 fL (80-100); Mean Platelet Volume 10.4 fL (7.4-10.4); Monocytes # (auto) 0.63 K/uL (0.11-0.59); Monocytes % (auto) 5.8 %; Neutrophils # (auto) 7.74 K/uL (1.4-6.5); Neutrophils % (auto) 71.3 %; Platelet Count 206 K/uL (130-400); RDW Coefficient of Variation 12.9 % (11.5-14.5); RDW Standard Deviation 44.1 fL (36.4-46.3); Red Blood Count 3.48 M/uL (4.2-5.4); White Blood Count 10.87 K/uL (4.8-10.8)
[2020-11-07 06:23] LABS: BUN Creatinine Ratio 15.1 (10-20); Calcium 8.5 mg/dl (8.5-10.1); Creatinine Clr Calc Pharmacy 99.2 ml/min; Est GFR (African American) 102.2; Est GFR (Non-African American) 88.2; Potassium 3.5 mmol/L (3.5-5.1)
[2020-11-07] MEDS: LOSARTAN POTASSIUM 25 MG TAB PO SCH (08:31)
[2020-11-07] MEDS: SACCHAROMYCES BOULARDII 250 MG CAP PO SCH (08:32)
[2020-11-07] MEDS: ASPIRIN 81 MG ECTAB PO SCH (08:32)
--- NOTE | 2020-11-07 09:39 | Cardiology Progress Note ---
Date of Service November 07, 2020 Assessment & Plan (1) Right groin wound: Leukocytosis has improved, minimally elevated WBC count of 10.87 today. Wound and blood cultures obtained 11/05/2020 with no growth thus far. Afebrile. Noncontrast CT revealed infiltration of the fat in the right inguinal region consistent with post procedure changes, with no evidence of fluid collection to indicate abscess. Continue antibiotics, will likely transition to oral Augmentin today. (2) Acidosis, lactic: Resolved on repeat labs. (3) S/P pulmonary valve replacement: Patient with longstanding history of congenitally bicuspid aortic valve for which she underwent a Ross procedure as a child. 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 Echocardiogram performed yesterday 11/06/2020 revealed normal to hyperdynamic left ventricular systolic function, LVEF 65 to 70%. Mild aortic valve regurgitation, stable compared to prior. The pulmonic prosthesis was not well visualized, no significant prosthetic regurgitation was noted, but there was a significant systolic gradient, with peak continuous-wave Doppler velocity across the pulmonic prosthesis of 3.4 m/s, max pressure gradient 45 mmHg, mean gradient 29 mmHg, which was increased compared to peak gradient of 31 mm Hg , mean gradient of 15 mm Hg noted prior to discharge at [facility]. The right ventricular chamber size and systolic function were normal. Max gradient across the tricuspid valve was 66 mmHg. The echo does suggest that there is a residual pulmonic valve gradient, but I am not certain what the "normal "is for this prosthesis in the setting. Patient did receive significant IV fluid resuscitation and IV antibiotics, which may be contributing to increased trans valvular Doppler velocities. Follow-up as planned at the [facility] in about a month, but will make sure her provider team there is aware of the updates. She does not have clinical symptoms to suggest acute prosthetic valve stenosis. As noted, clopidogrel previously discontinued a week ago due to concerns of urticaria. She is on aspirin 162 mg grams daily. Vital signs are stable this morning, although her most recent heart rate is recorded as being 111, this must of been performed when she was ambulating and cleaning up this morning, as on telemetry, sinus rhythm in the 80s is present which has been her recent baseline. I plan to discuss her CT and clinical progress with vascular surgery, possible discharge later today. She has requested an extension to her FMLA. Post procedures on 10/24/2020, her [facility] team had recommended 4 to 6 weeks off of work, patient had plan to return earlier, but given her circumstances, would recommend that she remains off until 11/19/2019. I will provide her a letter for her employer. ADDENDUM: Received message from cardiac care unit nurse that Dr Romano is unavailable today. Physical exam findings, clinical progress, and CT findings are all reassuring. From cardiac perspective OK to discharge on 2 week course of Augmentin. Oral probiotic / yogurt daily recommended, and discussed with patient. 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 Admission and Anticipated Discharge Date Admission Date: November 05, 2020 Subjective Patient seen in follow up. She feels improved subjectively. A febrile on vitals, with no subjective fevers or chills. Review of Systems Review of Systems: All systems reviewed & are unremarkable except as noted in HPI & below Physical Exam Physical Exam: Temp Pulse Resp BP Pulse Ox 36.9 C 111 H 20 95/59 L 96 11/07/20 07:57 11/07/20 07:57 11/07/20 07:57 11/07/20 07:57 11/07/20 07:57 Constitutional: WD/WN, vitals as above Respiratory: normal respiratory effort, lungs clear to auscultation Cardiovascular: Rate/Rhythm: regular rate Heart Sounds: + murmur (I-II/ Systolic murmur over left and right sternal border) Vessels: no JVD Extremities: no edema Right groin fem vein access site , soft, minimal serosanguineous drainage overnight Results & Data ([facility]) Vital Signs (Past 12 Hours) Vital Signs Temp Pulse Pulse Resp BP Pulse Ox 11/07/20 07:57 36.9 C 111 H 20 95/59 L 96 11/07/20 07:12 64 11/07/20 04:55 36.7 C 64 18 106/70 99 11/06/20 23:49 73 11/06/20 22:58 36.8 C 69 20 84/51 L 98 Laboratory Results CBC 11/07/20 Range/Units 05:39 WBC 10.87 H (4.8-10.8) K/uL RBC 3.48 L (4.2-5.4) M/uL Hgb 11.1 L (12.0-16.0) g/dL Hct 33.0 L (37-47) % Plt Count 206 (130-400) K/uL Neut # (Auto) 7.74 H (1.4-6.5) K/uL Lymph # (Auto) 2.33 (1.2-3.4) K/uL Lynn # (Auto) 0.63 H (0.11-0.59) K/uL Eos # (Auto) 0.09 (0-0.5) K/uL Baso # (Auto) 0.01 (0-0.2) K/uL Comprehensive Metabolic Panel 11/07/20 Range/Units 05:39 Sodium 139 (136-145) mmol/L Potassium 3.5 (3.5-5.1) mmol/L Chloride 108 H (98-107) mmol/L Carbon Dioxide 24 (21-32) mmol/L BUN 13 (7-18) mg/dl Creatinine 0.84 (0.6-1.2) mg/dl Glucose 94 (70-99) mg/dl Calcium 8.5 (8.5-10.1) mg/dl Intake and Output 11/06/20 11/07/20 11/07/20 22:59 06:59 14:59 Intake Total 870 / 4286.25 970 / 4286.25 115 / 115 Balance 870 / 4286.25 970 / 4286.25 115 / 115 Intake: IV 390 / 2426.25 390 / 2426.25 115 / 115 Zosyn 3.375 gm In D5 100 ml @ 115 / 345 115 / 345 115 / 115 28.75 mls/hr IV Q8H JIM Rx#: [id number] Vancomycin HCl 1,250 mg In Nss 275 / 825 275 / 825 250 ml @ 200 mls/hr IV Q8H J[facility] Rx#:[id number] Oral 480 / 1860 580 / 1860 Other: # Unmeasured Voids 2 Weight 80.6 kg Weight Measurement Method Built in [facility] (1) Right groin wound Encounter type: initial encounter Qualified Code(s): S31.109A - Unspecified open wound of abdominal wall, unspecified quadrant without penetration into peritoneal cavity, initial encounter
[2020-11-07] MEDS ORDERED: POTASSIUM CHLORIDE CRTAB 20 MEQ TABCR PO STA (09:44)
[2020-11-07 12:06] VITALS: BP 125/78; PULSE 92; TEMP 98.1; O2SAT 20
--- NOTE | 2020-11-07 14:47 | Discharge Summary ---
Date of Service November 07, 2020 Admission HPI Per Admitting Provider Nery Berman is a 31-year-old female with complex congenital cardiac history who presents to the ER on advice of her manager highway due to a right groin wound 11 days post transcatheter pulmonic valve replacement and placement of a wireless Medtronic Micra AV pacemaker via right femoral vein. Reportedly had a mild right femoral vein hematoma postprocedure and was discharged with a 7-day course of Keflex. Unfortunately she had an allergic reaction 7 days later with hives and severe facial swelling. She was seen in the ER and suspected to be secondary to either Keflex or clopidogrel that was started post procedure. She was treated with IV dexamethasone, Benadryl and famotidine for an allergic reaction. Both these medications were stopped and she was discharged home with an EpiPen and advised to take Benadryl and Pepcid. She was later prescribed a course of prednisone by her manager highway due to recurrent/persistent symptoms later that night (last dose taken yesterday). Regarding her right groin wound. This started off as a mild hematoma post procedure as above. Initially she was doing well with this until yesterday approximately 4 PM she noticed drainage from her right groin which was dark brown/green blood and serosanguineous which subsequently tapered off. No pus seen. However she has had ongoing serosanguineous since this time. She called her manager highway who recommended coming to the emergency room for further evaluation. She has already been seen by Dr. Patel her manager highway in the emergency room who recommends admission with IV antibiotics due to concern for infection in the setting of WBC 13.8, lactate 3.6 and risk to recently replaced pulmonic valve. In addition she reports being on and off fluconazole since January for recurrent oral thrush. However no cultures have grown any fungus. She last took fluconazole 6 days ago prior to coming to the ER. She reports these white spots mainly on her tongue but also the ulcers in her mouth clear up with IV antibiotics and did not get worse with her recent course of prednisone. She denies any current active lesions. In the ER she was started on vancomycin and Zosyn per cardiology recommendations and referred to medicine for admission for ongoing management. Admission Exam Per Admitting Provider Constitutional: well developed and well nourished; no acute distress Eyes: PERRL, conjunctivae normal, anicteric sclerae ENMT: external ear and nose normal, oropharynx normal Respiratory: normal respiratory effort, lungs clear to auscultation Cardiovascular: Rate/Rhythm: regular rate and regular rhythm Heart Sounds: + murmur (RUSB systolic ejection) Vessels: no JVD Extremities: normal capillary refill; no calf tenderness and no pedal edema Gastrointestinal (Abdomen): normal bowel sounds, soft, nontender, no hepatosplenomegaly Musculoskeletal: no cyanosis or clubbing, extremities motor strength 5/5 Skin: 5 mm open wound in the right groin, no pus, 2 cm surrounding erythema without swelling, nontender, no tracking, no enlarged inguinal lymphadenopathy Neurologic: moves all extremities and awake; not confused Psychiatric: A+Ox3, euthymic affect Principal Diagnosis Right groin cellulitis Discharge Exam Constitutional well developed and well nourished; no acute distress Respiratory normal respiratory effort, lungs clear to auscultation Cardiovascular Rate/Rhythm: regular rate and regular rhythm Extremities: no pedal edema Skin 5mm open wound without surrounding cellulitis Neurologic moves all extremities and awake; not confused Discharge Data Allergies Allergy/AdvReac Type Severity Reaction Status Date / Time cephalexin [From Keflex] Allergy Severe FACIAL Unverified 11/05/20 13:44 SWELLING clopidogrel [From Plavix] Allergy Severe FACIAL Unverified 11/05/20 13:44 SWELLING spironolactone AdvReac Unknown Unknown Unverified 11/05/20 13:44 [From Aldactone] Consultations 11/05/20 14:25 Consult Cardiology Stat 11/05/20 14:32 ED Decision to Admit Stat Ordered Studies 11/05/20 12:51 US arterial duplex LE RT Stat 11/05/20 15:04 US extremity non-vascular ltd Stat 11/06/20 10:36 CT pelvis wo con Urgent Hospital Course (1) Right groin wound: Nery Berman is a 40 year old female admitted to [facility] from November 05-2019 due to postoperative drainage and cellulitis at the site of your recent right femoral vein catheterization. Subsequent blood and wound cultures were unremarkable/negative. Surrounding cellulitis resolved with IV antibiotics. Imaging did not suggest fluid collection large enough to drain. She was treated with IV vancomycin and Zosyn as an inpatient and transitioned Augmentin on discharge. (2) Acidosis, lactic: (3) Heart block, AV: (4) S/P pulmonary valve replacement: (5) History of bicuspid aortic valve: (6) ADD (attention deficit disorder): Total Time Total Time Spent Total Time Spent (In Minutes): 20 Discharge Plan Discharge Items Patient Disposition: Home - Self-Care Reason For Visit: POST PROCEDURE WOUND INFECTION Discharge Diagnosis: Postprocedure wound cellulitis and draining collection Activity: Resume your previous activity Non-emergency contact: Document Review Attorney Call non-emergency contact if: you have any medication questions and your symptoms worsen Follow-up/Referrals: Keysha Roe DO [Primary Care Provider] - 11/20/20 9:20 am (You have an appt with Dr Roe on 11/20 @ 920. Please arrive 15 minutes prior to your appt. ) Curtis Patel DO [Document Review Attorney] - (Dr. Patel's office will call you with your appt date and time. ) Diet: Heart Healthy Addtl Attending Provider Instructions: You were admitted to [facility] from November 05-2019 due to postoperative drainage at the sites of your recent right femoral vein catheterization. Subsequent blood and wound cultures were unremarkable/negative. Surrounding cellulitis resolved. Imaging did not suggest fluid collection large enough to drain. You were treated with IV antibiotics as an inpatient and transitioned to oral antibiotics for a total 7 day course. Given prior allergy to Keflex, however previously tolerated Augmentin therefore will finish course with this. Pending Studies at Discharge: Yes Stand-Alone Forms: My [facility], Smoking Cessation Medications and DC Order Prescriptions: Continued clonazepam 2 mg tablet 3 mg PO HS PRN (Reason: Anxiety) RF: 0 Saccharomyces boulardii [Florastor] 250 mg capsule 500 mg PO BID RF: 0 clindamycin phosphate 1 % solution 1 applic topical DAILY Qty: 30 RF: 0 benzoyl peroxide 5 % cleanser 1 applic topical DAILY Qty: 142 RF: 0 adapalene 0.3 % gel 1 applic topical DAILY Qty: 45 RF: 0 dextroamphetamine-amphetamine 20 mg tablet 20 mg PO TID RF: 0 aripiprazole 2 mg tablet 2 mg PO HS RF: 0 losartan 25 mg tablet 25 mg PO QAM RF: 0 etonogestrel-ethinyl estradiol 0.12-0.015 mg/24 hr ring 1 vag ring VAGINAL UD RF: 0 aspirin [Aspirin Low Dose] 81 mg Tablet,Delayed Release (Dr/Ec) 160 mg PO QAM RF: 0 epinephrine 0.3 mg/0.3 mL auto-injector 0.3 mg IM ONCE PRN (Reason: allergic reaction) Qty: 2 RF: 0 No Action montelukast [Singulair] 10 mg tablet 10 mg PO QAM Qty: 90 RF: 1 Discharge Orders: Discharge Order (Routine); Ordered 11/07/20 Ordered By: James Christianson Admission Data Admit Date/Time: 11/05/20 16:42 Attending Provider: James Christianson Admit Provider: James Christianson Primary Care Provider: Keysha Roe Other Providers: Curtis Patel ; James Christianson Other Interventions: Discharge Summary Assessment (RN) Last Done: 11/07/20 14:31 Coding Level of Care Code 20531 OBS Care - Discharge Diagnoses Right groin wound S31.109A Encounter type: initial encounter Acidosis, lactic E87.2 Heart block, AV I44.30 S/P pulmonary valve replacement Z95.2 History of bicuspid aortic valve Z87.74 ADD (attention deficit disorder) F98.8
[2020-11-07] MEDS ORDERED: AMOXICILLIN/CLAVULANATE 875 MG TAB PO ONE (15:00)
[2020-11-07] MEDS ORDERED: VANCOMYCIN TROUGH ONE (16:30)
[2020-11-07] MEDS ORDERED: ARIPIprazole 1 MG/ML ORAL SOLN 150 ML BTL PO SCH (21:00)
== END 2020-11-07 15:12 | disposition home or self-care (01) ==
LOC: ED 11:48 → 2N 11:48 → 2W 11-06 03:26

== ENCOUNTER 2024-03-28 16:03 | Inpatient (IN) ==
--- NOTE | 2024-03-28 16:38 | XRay Report ---
SINGLE VIEW CHEST CLINICAL HISTORY: Sepsis. FINDINGS: A PA chest radiograph is compared to study dated 11/05/2020 and correlated with chest CT pe rformed the same day 03/28/2024. The patient is status post midline sternotomy and cardiac valve surge ry. A pacemaker lead is unchanged in position appear The cardiomediastinal silhouette is top normal f or projection. The lungs and pleural spaces are clear. No pneumothorax is seen. The bony thorax is gr ossly intact. An electronic device projects over the left lower chest. IMPRESSION: The lungs are clear. ACT 112: Negative or not required by law. Electronically signed by: Stephane Wiseman M.D. 03/28/2024 4:37 PM
[2024-03-28 17:04] LABS: Basophils # (auto) 0.05 K/uL (0.00-0.20); Basophils % (auto) 0.5 %; Eosinophils # (auto) 0.08 K/uL (0.00-0.50); Eosinophils % (auto) 0.7 %; Hematocrit (blood only) 34.7 % (37.0-47.0); Hemoglobin 12.1 g/dl (12.0-16.0); Immature Granulocytes # (auto) 0.09 K/uL (0.01-0.20); Immature Granulocytes % (auto) 0.8 %; Lymphocytes # (auto) 1.29 K/uL (1.20-3.40); Lymphocytes % (auto) 11.6 %; Mean Corpuscular Hemoglobin 31.1 pg (25.0-34.0); Mean Corpuscular Hgb Conc 34.9 g/dL (32.0-36.0); Mean Corpuscular Volume 89.2 fL (80.0-100.0); Mean Platelet Volume 10.5 fL (9.4-12.4); Monocytes # (auto) 0.59 K/uL (0.11-0.59); Monocytes % (auto) 5.3 %; Neutrophils % (auto) 81.1 %; Platelet Count 304 K/uL (130-400); RDW Coefficient of Variation 11.6 % (11.5-14.5); RDW Standard Deviation 37.3 fL (36.4-46.3); Red Blood Count 3.89 M/uL (4.20-5.40)
--- NOTE | 2024-03-28 17:09 | Emergency Department Note ---
Impression & Plan Prolonged fever, Elevated erythrocyte sedimentation rate, Elevated C-reactive protein, History of endocarditis ED Provider Note NAME: JEANNINE ROCHE AGE: 43 SEX: F : 1980 ARRIVES VIA: Walk-In INFORMANT: Patient ED PROVIDER(S): Jama Travis MD CHIEF COMPLAINT: Fever, referred. 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 She had outpatient testing through her primary care doctor which showed elevated ESR and CRP. She had 2 sets of blood cultures obtained outpatient. She reports feeling increased shortness of breath with exertion and palpitations and pressure when she feels she is becoming febrile. She reports feeling mild congestion when she does become febrile but otherwise no overt cough. She denies nausea, vomiting, diarrhea. She reports she did have a UTI diagnosed a couple of weeks ago where she had brain with urination which has since resolved after being treated with outpatient antibiotics. She also reports that she had dental work done a couple of weeks ago as well which is an additional concern for possible infectious source. She additionally adds that she stepped on a staple with her left foot a week and a half ago and also has scratched herself with nails here and there on her hands as they are doing remodeling in her home. The patient did have an outpatient TTE which did not show any signs of vegetations or acute changes otherwise. She also had a CTA of her chest that was negative for PE, pneumonia or acute cardiopulmonary process otherwise. Aneurysmal dilatation of the aorta is unchanged. On evaluation the patient is no acute distress, afebrile with stable vital signs. She has no joint swelling or warmth. She has a 3/6 murmur which is the patient's baseline. She otherwise has no stigmata of endocarditis at this time. She has mild suprapubic discomfort without discrete tenderness. EKG without overt acute ischemia. CXR negative for acute cardiopulmonary process per my personal preliminary review/interpretation. WBC 11K with neutrophil predominance though no left shift. Hemoglobin within normal limits. Platelets within normal limits. Chemistry without metabolic acidosis. Lactic acid 1.8, within normal limits. LFTs unremarkable. High- sensitivity troponin 6.3, within normal limits. Procalcitonin is not elevated. Outpatient urinalysis subsequently did result and was not convincing for infection. Respiratory BioFire was negative. Lyme screen was negative outpatient. Additional testing including other tickborne illness was ordered. Additional blood cultures were obtained per critical pathways on arrival. Case was discussed with the patient's [facility] nanoscience technician, Dr. Patel. He had seen the patient at the bedside. Appreciate consultation recommendations. He had seen the patient at the bedside and has arranged for LOU tomorrow. Recommends initiation of vancomycin in addition to cefepime or Zosyn empirically for endocarditis. Agrees with additional testing as indicated for infectious source with CT abdomen pelvis. Patient to be admitted to hospital service and cardiology will continue to follow. CT of the abdomen and pelvis and CT head were negative for acute abnormalities. IV Cefepime and Vancomycin ordered. Case was discussed with MONA Moncada PAC, with MONA Flores hospitalist who will evaluate the patient for admission. Triage Nursing notes reviewed and agree them. Prior/external medical records reviewed Vital Signs: reviewed Differential diagnosis: Viral syndrome, otitis, pharyngitis, pneumonia, influenza, meningitis, urinary tract infection, sepsis, bacteremia, as well as other pathologies. ER treatment provided: See below. Diagnostics interpreted by me: ECG: Sinus tachycardia, 103 bpm, no ectopy, no overt ST elevation or depression, QTc 427, QRS 82. Cardiac Monitoring: An order for continuous cardiac monitoring was placed and demonstrated Sinus tachycardia, 103 bpm, no ectopy. Laboratory studies: See below Imaging studies: See below Consultation(s): Dr. Patel, [facility] cardiology MONA Moncada PAC, with MONA Flores hospitalist. HPI: The patient is a pleasant 43-year-old woman, [place] now working from home, with a past medical history of congenital heart disease with remote Ross procedure and transcatheter pulmonic valve replacement, history of VSD repair, tricuspid valve repair and history of remote endocarditis as a child who presents emergency department referred by her PCP and cardiology office for further evaluation and management of suspected endocarditis in the setting of having ongoing low-grade fevers up to 100 over the past 2 weeks with generalized fatigue/malaise. She had outpatient testing through her primary care doctor which showed elevated ESR and CRP. She had 2 sets of blood cultures obtained outpatient. She reports feeling increased shortness of breath with exertion and palpitations and pressure when she feels she is becoming febrile. She reports feeling mild congestion when she does become febrile but otherwise no overt cough. She denies nausea, vomiting, diarrhea. She reports she did have a UTI diagnosed a couple of weeks ago where she had brain with urination which has since resolved after being treated with outpatient antibiotics. She also reports that she had dental work done a couple of weeks ago as well which her concerns are for possible source. She additionally adds that she stepped on a staple with her left foot a week and a half ago and also has scratched herself with nails here and there on her hands as they are doing remodeling in her home. The patient did have an outpatient TTE which did not show any signs of vegetations or acute changes otherwise. She also had a CT of her chest that was negative for PE, pneumonia or acute cardiopulmonary process otherwise. Aneurysmal dilatation of the aorta is unchanged. ROS: See above HPI for pertinent positives & negatives. A total of 10 systems reviewed and were otherwise negative. VITALS:See Below PHYSICAL EXAMINATION: GENERAL: Awake, alert, fatigued-appearing, in no distress HENT: Normocephalic, atraumatic. Oropharynx with dry mucous membranes and otherwise unremarkable. EYES: Normal conjunctiva. Sclera non-icteric. NECK: Supple. No nuchal rigidity. FROM. No JVD. RESPIRATORY: Clear to auscultation. CARDIAC: Regular rate, normal rhythm. 3/6 murmur. Extremities warm and well perfused. Pulses equal. ABDOMEN: Soft, non-distended. Mild suprapubic discomfort without discrete tenderness to palpation. No rebound or guarding. No masses. MUSCULOSKELETAL: Chest examination reveals no tenderness. The back is symmetrical on inspection without obvious abnormality. There is no CVA tenderness to palpation. No joint edema. LOWER EXTREMITIES: Calves are equal size bilaterally and non-tender. No edema. No discoloration. NEURO: Normal sensorium. No sensory or motor deficits noted. SKIN: No rash or jaundice noted. 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 Layne) and locally Dr. Patel locally Polycystic ovaries History of congenital heart disease ADD (attention deficit disorder) Ventricular septal defect s/p VSD (1984) Heart block, AV (Acute) PACEMAKER INSERTED Endometriosis Medical History HENOK positive History of aortic valve disease Congenital bicuspid aortic valve > childhood aortic valve repair, complicated with complete heart block and PPM insertion (1984) > Ross procedure (1996) Thoracic ascending aortic aneurysm 4.7cm ascending thoracic aortic aneurysm under surveillance by cardiology 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 (10/2020) Pacemaker Aortic valve repair, complicated with complete heart block and PPM insertion (1984) > multiple removal/replacements with most recently Medtronic Micra AV pacing system (10/2020) Hx of thoracic outlet syndrome Depression Panic disorder History of bicuspid aortic valve Aortic valve insufficiency Follows with [facility] (Dr. Layne) and locally Dr. Patel locally Polycystic ovaries History of congenital heart disease ADD (attention deficit disorder) Endometriosis Ventricular septal defect s/p VSD (1984) Surgical History S/P exploratory laparotomy (03/15/21) w/ excision of subcutaneous nodule Status post cardiac pacemaker procedure Aortic valve repair, complicated with complete heart block and PPM insertion (1984) > PPM generator extraction/ lead retained (2009) > Dual chamber Medtronic pacemaker placed (2012) > Removal of Medtronic pacemaker d/t thoracic outlet syndrome (2017) > Medtronic Micra AV pacing system (10/2020) History of nasal surgery + septoplasty History of cardiac cath x2 History of surgery I&D right groin area s/p cath (11/2020) > resolved S/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) Transcatheter pulmonic valve replacement, placement of wireless Medtronic AV pacemaker S/P cardiac pacemaker procedure (10/2020) Medtronic Micra AV pacing system (10/2020) Status post placement of implantable loop recorder 2017 H/O aortic valve repair (1984) 1984 ([facility]) S/P Ross procedure At age 16 S/P VSD repair (1984) S/P section x1 H/O umbilical hernia repair Incarcerated umbilical hernia repair S/P laparoscopic cholecystectomy Family History Father Diabetes Coronary heart disease Hypertension Mother Hypertension Aunt Breast cancer paternal aunt Other No family history of adverse response to anesthesia Denies family history of Ovarian cancer Prostate cancer Myocardial infarction Colorectal cancer Social History Smoking Status: Never smoker Tobacco Type: Cigarettes packs per day: 1; Second Hand Exposure: No; Do You Dip or Chew Tobacco: No; Tobacco Cessation Education Requested by Patient: No Hx Alcohol Use: Yes Alcohol type: beer and wine Alcohol Intake Frequency: Monthly or Less Alcohol Intake Frequency Comment: rare Hx Substance Use: No Preferred Language: Bermudian Communication Ability: Effective Visual Impairment: No Limitations Hearing Ability: Normal Personnel Associate Required: No Beliefs That Will Affect Care: None marital status: Current Living Situation: Significant Other Current Living Situation Comment: LIVES WITH SON current occupational status: employed 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 How many Children do You have: 1 Other Information That Helps Us Care for You: No Feels Safe at Home: Yes Safety Concerns: Feels Safe At This Time Diet: regular caffeine: Yes during the past year weight has: remained stable Dental Care, Regularly: Yes Physical Activity Frequency: Other Seatbelt Use: always Sunscreen Use: Yes Assistive Devices: Glasses Allergies Allergies Allergy/AdvReac Type Severity Reaction Status Date / Time clopidogrel [From Plavix] Allergy Severe Facial Verified 03/28/24 18:46 swelling topiramate [From Topamax] Allergy Mild Rash Verified 03/28/24 18:46 spironolactone AdvReac Intermediate Hypokalemia Verified 03/28/24 18:46 [From Aldactone] Home Meds Home Medications Medication Instructions Recorded Confirmed dextroamphetamine-amphetamine 20 20 mg PO TID 06/15/20 03/28/24 mg tablet (Adderall) clonazepam 2 mg tablet 2 - 3 mg PO HS PRN Anxiety 09/25/20 03/28/24 aspirin 81 mg tablet,delayed 162 mg PO QAM 10/31/20 03/28/24 release (Loreta Low Dose Aspirin) bupropion HCl 150 mg tablet,12 hr 300 mg PO QAM 03/05/21 03/28/24 sustained-release (Wellbutrin SR) fluticasone propionate 50 2 spray intranasal DAILY 02/04/24 03/28/24 mcg/actuation nasal spray,suspension (Allergy Relief (fluticasone)) tirzepatide (weight loss) 10 10 mg subcut WK 03/28/24 03/28/24 mg/0.5 mL subcutaneous pen injector (Zepbound) tirzepatide (weight loss) 7.5 7.5 mg subcut WK 03/28/24 03/28/24 mg/0.5 mL subcutaneous pen injector (Zepbound) Previous Rx's Medication Instructions Recorded adapalene 0.3 % topical gel 1 applic topical DAILY #45 grams 08/02/20 benzoyl peroxide 5 % topical 1 applic topical DAILY #142 grams 08/02/20 cleanser clindamycin phosphate 1 % topical 1 applic topical DAILY #30 mL 08/02/20 solution epinephrine 0.3 mg/0.3 mL 0.3 mg (0.3 mL) IM ONCE PRN 10/31/20 injection, auto-injector allergic reaction #2 ea Saccharomyces boulardii 250 mg 500 mg (2 x 250 mg) PO BID #240 05/14/21 capsule (Florastor) caps etonogestrel 0.12 mg-ethinyl 1 vag ring vaginal UD #3 ea 12/14/23 estradiol 0.015 mg/24 hr vaginal ring amoxicillin 500 mg tablet 2,000 mg (4 x 500 mg) PO ONCE PRN 02/03/24 dental procedure #4 tabs losartan 25 mg tablet 25 mg PO QAM #90 tabs 03/14/24 Results & Data (ED) Vital Signs Vital Signs - 24 hr 03/28/24 16:08 03/28/24 16:52 03/28/24 16:53 Temperature 36.9 C Temperature Source Oral Pulse Rate 104 H 97 H 100 H Pulse Rate from SpO2 Sensor Respiratory Rate 17 24 Respiratory Effort / Characteristics Non-Labored Respiratory Depth Normal Blood Pressure 107/69 Blood Pressure Mean 81 Pulse Oximetry 98 Oxygen Delivery Method Room Air Sepsis Recent Fever Within 48 Hours Yes Sepsis New/Unexplained Change in Mental Status N/A Sepsis Action Taken by Nursing No Action Required 03/28/24 17:00 03/28/24 17:30 03/28/24 18:00 Temperature Temperature Source Pulse Rate 96 H 96 H 90 Pulse Rate from SpO2 Sensor Respiratory Rate 27 H 23 27 H Respiratory Effort / Characteristics Respiratory Depth Blood Pressure Blood Pressure Mean Pulse Oximetry 97 Oxygen Delivery Method Sepsis Recent Fever Within 48 Hours Sepsis New/Unexplained Change in Mental Status Sepsis Action Taken by Nursing 03/28/24 18:32 03/28/24 18:33 03/28/24 18:33 Temperature Temperature Source Pulse Rate 92 H 90 Pulse Rate from SpO2 Sensor Respiratory Rate 13 Respiratory Effort / Characteristics Respiratory Depth Blood Pressure 115/74 Blood Pressure Mean 83 Pulse Oximetry Oxygen Delivery Method Sepsis Recent Fever Within 48 Hours Sepsis New/Unexplained Change in Mental Status Sepsis Action Taken by Nursing 03/28/24 19:00 03/28/24 19:07 03/28/24 19:07 Temperature Temperature Source Pulse Rate 88 99 H Pulse Rate from SpO2 Sensor 90 89 Respiratory Rate 20 17 Respiratory Effort / Characteristics Respiratory Depth Blood Pressure 114/69 Blood Pressure Mean 72 Pulse Oximetry 100 99 Oxygen Delivery Method Sepsis Recent Fever Within 48 Hours Sepsis New/Unexplained Change in Mental Status Sepsis Action Taken by Nursing 03/28/24 19:30 03/28/24 20:00 03/28/24 20:00 Temperature Temperature Source Pulse Rate 90 89 Pulse Rate from SpO2 Sensor 90 Respiratory Rate 19 25 H Respiratory Effort / Characteristics Respiratory Depth Blood Pressure 117/86 Blood Pressure Mean 92 Pulse Oximetry 98 Oxygen Delivery Method Room Air Sepsis Recent Fever Within 48 Hours Sepsis New/Unexplained Change in Mental Status Sepsis Action Taken by Nursing Laboratory Data Attestation: I reviewed the patient's lab results. 03/29/24 05:41 03/28/24 16:21 Lab Results 03/28/24 03/28/24 Range/Units 16:21 18:37 WBC 11.10 H (4.8-10.8) K/ul RBC 3.89 L (4.20-5.40) M/uL Hgb 12.1 (12.0-16.0) g/dl Hct 34.7 L (37.0-47.0) % MCV 89.2 (80.0-100.0) fL MCH 31.1 (25.0-34.0) pg MCHC 34.9 (32.0-36.0) g/dL RDW Std Deviation 37.3 (36.4-46.3) fL RDW Coeff of Christine 11.6 (11.5-14.5) % Plt Count 304 (130-400) K/uL MPV 10.5 (9.4-12.4) fL Immature Gran % (Auto) 0.8 % Neut % (Auto) 81.1 % Lymph % (Auto) 11.6 % [place] % (Auto) 5.3 % Eos % (Auto) 0.7 % Baso % (Auto) 0.5 % Neut # (Auto) 9.00 H (1.40-6.50) K/uL Lymph # (Auto) 1.29 (1.20-3.40) K/uL [place] # (Auto) 0.59 (0.11-0.59) K/uL Eos # (Auto) 0.08 (0.00-0.50) K/uL Baso # (Auto) 0.05 (0.00-0.20) K/uL Immature Gran # (Auto) 0.09 (0.01-0.20) K/uL PT 10.2 (9.0-12.0) Seconds INR 0.9 (0.9-1.1) APTT 29 (21-31) Seconds PTT Ratio 1.1 Sodium 132 L (136-145) mmol/L Potassium 3.8 (3.5-5.1) mmol/L Chloride 97 L (98-107) mmol/L Carbon Dioxide 27 (21-32) mmol/L Anion Gap 8 (3-11) BUN 7 (6-23) mg/dl Creatinine 0.90 (0.6-1.2) mg/dl Est Cr Clr Drug Dosing 79.2 ml/min Est GFR ( Amer) 91.4 ml/min Est GFR (Non-Af Amer) 78.9 ml/min BUN/Creatinine Ratio 7.8 L (10-20) Glucose 78 (70-99(Fasting)) mg/dl Lactate 1.8 (0.4-2.0) mmol/L Calcium 9.8 (8.6-10.3) mg/dl Total Bilirubin 0.4 (0.2-1.0) mg/dl AST 24 (13-39) U/L ALT 25 (7-52) U/L Alkaline Phosphatase 145 H (34-104) U/L Troponin I High Sens 6.3 (0-14) pg/ml Total Protein 8.0 (6.0-8.3) gm/dl Albumin 4.0 (3.4-5.0) gm/dl Globulin 4.0 (2.5-4.0) gm/dl Albumin/Globulin Ratio 1.0 (0.9-2) Procalcitonin 0.03 (0-0.5) ng/ml HCG, Qual Negative (Negative) Urine Color Yellow Urine Appearance Clear (Clear) Urine pH 7.5 (4.5-7.5) Ur Specific [place] 1.008 (1.000-1.030) Urine Protein Negative (Negative) Urine Glucose (UA) Negative (Negative) Urine Ketones Negative (Negative) Urine Blood Trace H (Negative) Urine Nitrite Negative (Negative) Urine Bilirubin Negative (Negative) Urine Urobilinogen Negative (Negative) Ur Leukocyte Esterase Negative (Negative) Urine WBC (Auto) 0-5 (0-5) /hpf Urine RBC (Auto) 0-2 (0-2) /hpf U Hyaline Cast (Auto) 0-2 (0-2) /lpf U Epithel Cells (Auto) 0-2 (0-2) /hpf Urine Bacteria (Auto) None Seen (None Seen) Anaplasma Smear See Comment Babesia Smear See Comment Administered Medications Acetaminophen (Acetaminophen 325 Mg Tab) 650 mg PO Q6H PRN PRN Reason: pain(1-4),headache,fever Stop: 04/27/24 20:44 Last Admin: 03/29/24 03:44 Dose: 650 mg Documented By: CHATO Gentamicin Sulfate 70 mg/ (Dextrose) 101.75 mls @ 100 mls/hr IV Q8H JIM Stop: 05/10/24 05:59 Last Admin: 03/29/24 05:25 Dose: 100 mls/hr Documented By: LMP Discontinued Medications Sodium Chloride (Nss) 1,000 mls @ 999 mls/hr IV .Q1H1M ONE Stop: 03/28/24 19:18 Last Infusion: 03/28/24 21:11 Dose: Infused Documented By: Admin: 03/28/24 18:33 Dose: 999 mls/hr Documented By: HS Acetaminophen (Ofirmev) 1,000 mg in 100 mls @ 400 mls/hr IV NOW STA Stop: 03/28/24 18:32 Last Infusion: 03/28/24 19:06 Dose: Infused Documented By: Admin: 03/28/24 18:33 Dose: 400 mls/hr Documented By: HS Cefepime HCl (Maxipime) 2,000 mg in 20 mls @ 5 mls/min IV NOW STA; Protocol Stop: 03/28/24 18:24 Last Admin: 03/28/24 18:33 Dose: 5 mls/min Documented By: HS Vancomycin HCl 1,750 mg/ (Sodium Chloride) 535 mls @ 200 mls/hr IV NOW ONE Stop: 03/28/24 21:01 Last Infusion: 03/28/24 23:24 Dose: Infused Documented By: Admin: 03/28/24 19:08 Dose: 200 mls/hr Documented By: DENNIS Gentamicin Sulfate 70 mg/ (Dextrose) 101.75 mls @ 100 mls/hr IV ONCE STA Stop: 03/28/24 21:49 Last Infusion: 03/29/24 00:13 Dose: Infused Documented By: Admin: 03/28/24 22:55 Dose: 100 mls/hr Documented By: KENZIE Ioversol (Optiray 320 100ml) 90 ml IV ONCE ONE Stop: 03/28/24 18:47 Last Admin: 03/28/24 18:48 Dose: 90 ml Documented By: GALLITO Imaging Data Radiologist's Impression: Abdomen/Pelvis CT 03/28/24 18:14 Exam(s): CT ABDOMEN + PELVIS With Contrast IV Amt: 90 ml optiray 320 EXAM: CT Abdomen and Pelvis With Intravenous Contrast CLINICAL HISTORY: Reason for exam: lower abd pain, fever. TECHNIQUE: Axial computed tomography images of the abdomen and pelvis with intravenous contrast. CTDI is 13.75 mGy and DLP is 767.62 mGy-cm. Automated exposure control was utilized for the study. A dose lowering technique was utilized adhering to the principles of ALARA. CONTRAST: Patient received 90 ml optiray 320 of IV contrast COMPARISON: CT abdomen pelvis 11/12/2020. FINDINGS: Lung bases: Clear. Liver: Unremarkable. Gallbladder and bile ducts: Cholecystectomy, stable. No ductal dilation. Pancreas: No ductal dilation. Spleen: Unremarkable. Adrenals: Unremarkable. Kidneys and ureters: No pyelonephritis or hydronephrosis. Stomach and bowel: Severe fecal loading of the colon. No diverticulosis or diverticulitis. No significant interval change. No obstruction. Appendix: Intraperitoneal space: No free air or fluid. Bones/joints: No acute fracture. Soft tissues: Unremarkable. Vasculature: No aortic aneurysm. Lymph nodes: No enlarged lymph nodes. Bladder: No stones. Reproductive: Unremarkable for patient's age and this technique, with limited evaluation of the adnexa due to adjacent unopacified small bowel. IMPRESSION: 1. No acute intra-abdominal or intrapelvic abnormality, and no significant interval change. 2. Normal kidneys and appendix. Electronically signed by: Elisa Estrada M.D. 03/28/24 19:[address] 03/28/24 18:14 Exam(s): CT HEAD Without Contrast EXAM: CT Head Without Intravenous Contrast CLINICAL HISTORY: Reason for exam: LLOYD, fever. TECHNIQUE: Axial computed tomography images of the head/brain without intravenous contrast. CTDI is 37.01 mGy and DLP is 547.75 mGy-cm. Automated exposure control was utilized for the study. A dose lowering technique was utilized adhering to the principles of ALARA. COMPARISON: Head CT 12/28/18. FINDINGS: Brain: No mass effect or acute infarct. No acute hemorrhage. Ventricles: No hydrocephalus or midline shift. Bones/joints: No skull fracture. Soft tissues: No scalp hematoma. Visualized Sinuses: Clear. Mastoid air cells: No mastoid effusion. IMPRESSION: 1. No acute intracranial abnormality, and no change. Electronically signed by: Elisa Estrada M.D. 03/28/24 19:20 PM Discharge Plan Visit Data Chief Complaint: Referred by Doctor Stated Complaint: REF BY DOC, ?ENDOCARDITIS ED Provider: Jama Travis Discharge Problem: Prolonged fever, Elevated erythrocyte sedimentation rate, Elevated C-reactive protein, History of endocarditis Patient Disposition: Admitted As Inpatient Discharge Instructions Interventions: ED Discharge Assessment Last Done: 03/28/24 21:11
[2024-03-28 17:13] LABS: BUN Creatinine Ratio 7.8 (10-20); Bilirubin,Total 0.4 mg/dl (0.2-1.0); Calcium 9.8 mg/dl (8.6-10.3); Creatinine Clr Calc Pharmacy 79.2 ml/min; Est GFR (African American) 91.4 ml/min; Est GFR (Non-African American) 78.9 ml/min; Potassium 3.8 mmol/L (3.5-5.1)
[2024-03-28 17:19] LABS: Troponin I High Sensitivity 6.3 pg/ml (0-14)
[2024-03-28 17:40] LABS: Adenovirus PCR Not Detected (NotDetected); Bordetella parapertussis PCR Not Detected (NotDetected); Bordetella pertussis PCR Not Detected (NotDetected); Chlamydia pneumoniae PCR Not Detected (NotDetected); Coronavirus 229E PCR Not Detected (NotDetected); Coronavirus CoV-2 (COVID19)PCR Not Detected (NotDetected); Coronavirus HKU1 PCR Not Detected (NotDetected); Coronavirus NL63 PCR Not Detected (NotDetected); Coronavirus OC43PCR Not Detected (NotDetected); Human Metapneumovirus PCR Not Detected (NotDetected); Influenza A PCR Not Detected (NotDetected); Influenza B PCR Not Detected (NotDetected); Mycoplasma pneumoniae PCR Not Detected (NotDetected); Parainfluenza Virus 1 PCR Not Detected (NotDetected); Parainfluenza Virus 2 PCR Not Detected (NotDetected); Parainfluenza Virus 3 PCR Not Detected (NotDetected); Parainfluenza Virus 4 PCR Not Detected (NotDetected); Respiratory Syncytial VirusPCR Not Detected (NotDetected); Rhinovirus/Enterovirus PCR Not Detected (NotDetected)
[2024-03-28 17:41] LABS: INR 0.9 (0.9-1.1); Partial Thromboplastin Ratio 1.1; Partial Thromboplastin Time 29 Seconds (21-31); Prothrombin Time 10.2 Seconds (9.0-12.0)
--- NOTE | 2024-03-28 17:50 | Cardiology Consultation ---
Date of Consultation March 28, 2024 Assessment & Plan (1) Fever: 43-year-old female history of complex congenital heart disease with remote Ross procedure and transcatheter pulmonic valve replacement. Patient has history of VSD repair, tricuspid valve repair, and remote endocarditis having completed long-term course of antibiotics as a child. As noted, her valvular structures are not well-visualized on the transthoracic study especially the pulmonic valve prosthesis. Patient has had 2 sets of blood cultures thus far. ESR and CRP are elevated compared to prior measurement obtained three months ago. At present, would recommend starting empiric antibiotics for prosthetic valve endocarditis with a regimen that would include vancomycin and either cefepime or piperacillintazobactam. Continue antipyretic therapy as necessary. Patient is to be n.p.o. after midnight for transesophageal echocardiogram tomorrow. I have placed a consult for the anesthesia service. Will sort out the timing of the procedure tomorrow after the schedule is set. Patient agreeable. History of Present Illness History of Present Illness Nery Berman is a 43 year old female seen in cardiology consultation per the request of KAM Carlin for the evaluation of fever. Patient's case is well-known to the undersigned with her complex cardiac history described below. 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 She notes that dating back to October, in November 2023 she had been treated for two urinary tract infections. In November she had a SARS-CoV-2 (COVID-19) illness and around that time had developed swelling in her wrists. She had been seen by rheumatology as her HENOK was positive. Her workup however was otherwise negative including erythrocyte sedimentation rate that was performed in December that was within normal limits. She notes that she had a routine dental cleaning in mid February, and had taken her prophylactic amoxicillin as per her usual routine. She notes that for the last 3 weeks starting around 03/16/2024 she has had fevers, chills, and night sweats. She notes her bed clothes are saturated with perspiration. She feels generalized easy fatigability and shortness of breath with activity such as climbing up a flight of stairs. At home her temperature has been in the range of 99 to 100.1 F and she has been taking Tylenol regularly for the last 3 weeks. She had also stepped on a nail or staple as she had been doing some home remodeling. She has a focal pain on the plantar aspect of her right foot but it is not where she had the puncture injury. She notes no sore teeth. She had been seen by primary care earlier today and stat lab work was performed which included findings of a mildly elevated white blood cell count of 11.1 with neutrophilic predominance, erythrocyte segmentation rate is elevated at 56 mm/h, lactate was within normal limits, C-reactive protein elevated at 9.27 mg/dL having been 0.59 mg/dL back in December. She notes that the previous wrist swelling and discomfort has ceased. A transthoracic echocardiogram was performed today revealing at least moderate mitral regurgitation and mild AI. The pulmonary artery systolic pressure was moderately elevated. Compared to her previous echocardiogram performed in 2019, the estimated pulmonary systolic pressure is relatively unchanged but the degree of tricuspid regurgitation appears to have increased. No definite valvular abnormality noted however her aortic valve and pulmonic valve prosthesis were not well-visualized. Past Cardiac surgery, procedural history: - 1984 Aortic valve repair, complicated with complete heart block and PPM insertion - 1984 VSD and tricuspid repair - 1996 Ross procedure/new PPM insertion - 1996 - 2006 frequent PPM interrogations: normal AV conduction - 2006 PPM generator battery depletion detected - 2009 PPM generator extraction/ lead retained -2012 Left and right heart catheterization performed Dr Hobson , [facility] [place], normal coronaries, elevated RV systolic pressures in the 64 mm Hg range - Implantation of Dual chamber Medtronic pacemaker placed, Dr Josafat Hawkins, [facility] for complete AV block -Removal of Medtronic pacemaker, removal of right atrial and right ventricular leads at [facility] on 12/09/17 due to concerns of thoracic outlet syndrome, with swelling of her left upper arm -Implantable LINQ loop recorder on 12/09/17, [facility] -10/24/2020, transcatheter pulmonic valve implantation #22 Bev valve, [facility] -10/25/2020, loop recorder removed, insertion of Medtronic Micra Wireless AV sequential pacemaker system, [facility] -November, incision, drainage, of small right groin hematoma, at procedure site from valve implantation, [facility] -mild aortic root dilatation, moderate to severe ascending thoracic aorta dilatation 4.8 centimeters Allergies Allergy/AdvReac Type Severity Reaction Status Date / Time clopidogrel [From Plavix] Allergy Severe Facial Verified 03/28/24 08:40 swelling topiramate [From Topamax] Allergy Mild Rash Verified 03/28/24 13:03 spironolactone AdvReac Intermediate Hypokalemia Unverified 03/28/24 08:40 [From Aldactone] Home Medications Medication Instructions Recorded Confirmed Type dextroamphetamine-amphetamine 20 20 mg PO TID 06/15/20 03/28/24 History mg tablet (Adderall) adapalene 0.3 % topical gel 1 applic topical DAILY #45 grams 08/02/20 03/28/24 Rx benzoyl peroxide 5 % topical 1 applic topical DAILY #142 grams 08/02/20 03/28/24 Rx cleanser clindamycin phosphate 1 % topical 1 applic topical DAILY #30 mL 08/02/20 03/28/24 Rx solution clonazepam 2 mg tablet 2 - 3 mg PO HS PRN Anxiety 09/25/20 03/28/24 History aspirin 81 mg tablet,delayed 162 mg PO QAM 10/31/20 03/28/24 History release (Loreta Low Dose Aspirin) epinephrine 0.3 mg/0.3 mL 0.3 mg (0.3 mL) IM ONCE PRN 10/31/20 03/28/24 Rx injection, auto-injector allergic reaction #2 ea bupropion HCl 150 mg tablet,12 hr 300 mg PO QAM 03/05/21 03/28/24 History sustained-release (Wellbutrin SR) Saccharomyces boulardii 250 mg 500 mg (2 x 250 mg) PO BID #240 05/14/21 03/28/24 Rx capsule (Florastor) caps etonogestrel 0.12 mg-ethinyl 1 vag ring vaginal UD #3 ea 12/14/23 03/28/24 Rx estradiol 0.015 mg/24 hr vaginal ring tirzepatide 7.5 mg/0.5 mL 7.5 mg (0.5 mL) subcut Q7D #6 mL 01/04/24 03/28/24 Rx subcutaneous pen injector (Mounjaro) amoxicillin 500 mg tablet 2,000 mg (4 x 500 mg) PO ONCE PRN 02/03/24 03/28/24 Rx dental procedure #4 tabs fluticasone propionate 50 2 spray intranasal DAILY 02/04/24 03/28/24 History mcg/actuation nasal spray,suspension (Allergy Relief (fluticasone)) losartan 25 mg tablet 25 mg PO QAM #90 tabs 03/14/24 03/28/24 Rx tirzepatide (weight loss) 10 10 mg (0.5 mL) subcut Q7D #2 mL 03/23/24 03/28/24 Rx mg/0.5 mL subcutaneous pen injector (Zepbound) tirzepatide (weight loss) 7.5 7.5 mg (0.5 mL) subcut Q7D #2 mL 03/23/24 03/28/24 Rx mg/0.5 mL subcutaneous pen injector (Zepbound) Patient History Medical History HENOK positive History of aortic valve disease Congenital bicuspid aortic valve > childhood aortic valve repair, complicated with complete heart block and PPM insertion (1984) > Ross procedure (1996) Thoracic ascending aortic aneurysm 4.7cm ascending thoracic aortic aneurysm under surveillance by cardiology 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 Layne) and locally Dr. Patel locally Polycystic ovaries History of congenital heart disease ADD (attention deficit disorder) Endometriosis Ventricular septal defect s/p VSD (1984) Surgical History S/P exploratory laparotomy (03/15/21) w/ excision of subcutaneous nodule Status post cardiac pacemaker procedure Aortic valve repair, complicated with complete heart block and PPM insertion (1984) > PPM generator extraction/ lead retained (2009) > Dual chamber Medtronic pacemaker placed (2012) > Removal of Medtronic pacemaker d/t thoracic outlet syndrome (2017) > Medtronic Micra AV pacing system (10/2020) History of nasal surgery + septoplasty History of cardiac cath x2 History of surgery I&D right groin area s/p cath (11/2020) > resolved S/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) Transcatheter pulmonic valve replacement, placement of wireless Medtronic AV pacemaker S/P cardiac pacemaker procedure (10/2020) Medtronic Micra AV pacing system (10/2020) Status post placement of implantable loop recorder 2017 H/O aortic valve repair (1984) 1984 ([facility]) S/P Ross procedure At age 16 S/P VSD repair (1984) S/P section x1 H/O umbilical hernia repair Incarcerated umbilical hernia repair S/P laparoscopic cholecystectomy Family History Father Diabetes Coronary heart disease Hypertension Mother Hypertension Aunt Breast cancer paternal aunt Other No family history of adverse response to anesthesia Denies family history of Ovarian cancer Prostate cancer Myocardial infarction Colorectal cancer Social History Smoking Status: Never smoker Tobacco Type: Cigarettes packs per day: 1; Second Hand Exposure: No; Do You Dip or Chew Tobacco: No; Hx Alcohol Use: Yes Alcohol type: beer Alcohol Intake Frequency: Monthly or Less Alcohol Intake Frequency Comment: rare Hx Substance Use: No Preferred Language: Nigerian Communication Ability: Effective Visual Impairment: No Limitations Hearing Ability: Normal Speech And Language Assistant Required: No Beliefs That Will Affect Care: None marital status: Current Living Situation: Family Current Living Situation Comment: LIVES WITH SON current occupational status: employed 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 How many Children do You have: 1 Feels Safe at Home: Yes Diet: regular caffeine: Yes during the past year weight has: remained stable Dental Care, Regularly: Yes Physical Activity Frequency: Other Seatbelt Use: always Sunscreen Use: Yes Assistive Devices: Contacts and Glasses Physical Exam Constitutional: + ill appearing; no acute distress Respiratory: + cough Auscultation: no crackles, no rales, no rhonchi and no wheezes Cardiovascular: Heart Sounds: normal S1, normal S2 and + murmur (1/6 SM ) Vessels: no JVD Extremities: no edema Musculoskeletal: no cyanosis or clubbing, extremities motor strength 5/5 Neurologic: PERRL, EOMI, accommodation nl, no face palsy, no dysarthria Results & Data Vital Signs (Past 12 Hours) Vital Signs Temp Pulse Resp BP Pulse Ox O2 Del Method 05/13/24 17:00 96 H 27 H 97 05/13/24 16:53 100 H 03/28/24 16:52 97 H 24 03/28/24 16:08 36.9 C 104 H 17 107/69 98 Room Air Laboratory Results EKG performed today 03/28/2024 at 1619 revealed sinus tachycardia at 103 bpm, T wave inversion noted in lead V2 which is felt to be a nonspecific finding.
[2024-03-28] MEDS ORDERED: VANCOMYCIN CONSULT ACTIVE PRN (18:21)
[2024-03-28] MEDS: SODIUM CHLORIDE 0.9% 1,000 ML IV ONE (18:33)
[2024-03-28] MEDS: CEFEPIME 2,000 MG/20 ML VIAL IV STA (18:33)
[2024-03-28] MEDS: ACETAMINOPHEN 1,000 MG/100 ML VIAL IV STA (18:33)
[2024-03-28] MEDS: OPTIRAY 320 100ml IV ONE (18:48)
[2024-03-28 19:04] LABS: Appearance Urine Clear (Clear); Bacteria Urine Automated None Seen (None Seen); Bilirubin Urine Negative (Negative); Blood Urine Trace (Negative); Cast Urine Automated 0-2 /lpf (0-2); Color Urine Yellow; Epithelial Cell Urine Auto 0-2 /hpf (0-2); Glucose Urine UA Negative (Negative); Ketones Urine Negative (Negative); Leukocyte Esterase Urine Negative (Negative); Nitrite Urine Negative (Negative); Protein Urine Negative (Negative); RBC Urine Automated 0-2 /hpf (0-2); Specific Gravity Urine 1.008 (1.000-1.030); Urobilinogen Urine Negative (Negative); WBC Urine Automated 0-5 /hpf (0-5); pH Urine 7.5 (4.5-7.5)
[2024-03-28] MEDS: VANCOMYCIN HCL 1,750 MG in SODIUM CHLORIDE 0.9% 500 ML IV ONE (19:08)
--- NOTE | 2024-03-28 19:21 | CT Scan Report ---
Exam(s): CT HEAD Without Contrast EXAM: CT Head Without Intravenous Contrast CLINICAL HISTORY: Reason for exam: LLOYD, fever. TECHNIQUE: Axial computed tomography images of the head/brain without intravenous contrast. CTDI is 37.01 mGy and DLP is 547.75 mGy-cm. Automated exposure control was utilized for the study. A dose lowering technique was utilized adhering to the principles of ALARA. COMPARISON: Head CT 12/28/18. FINDINGS: Brain: No mass effect or acute infarct. No acute hemorrhage. Ventricles: No hydrocephalus or midline shift. Bones/joints: No skull fracture. Soft tissues: No scalp hematoma. Visualized Sinuses: Clear. Mastoid air cells: No mastoid effusion. IMPRESSION: 1. No acute intracranial abnormality, and no change. Electronically signed by: Elisa Estrada M.D. 03/28/24 19:20 PM
--- NOTE | 2024-03-28 19:25 | CT Scan Report ---
Exam(s): CT ABDOMEN + PELVIS With Contrast IV Amt: 90 ml optiray 320 EXAM: CT Abdomen and Pelvis With Intravenous Contrast CLINICAL HISTORY: Reason for exam: lower abd pain, fever. TECHNIQUE: Axial computed tomography images of the abdomen and pelvis with intravenous contrast. CTDI is 13.75 mGy and DLP is 767.62 mGy-cm. Automated exposure control was utilized for the study. A dose lowering technique was utilized adhering to the principles of ALARA. CONTRAST: Patient received 90 ml optiray 320 of IV contrast COMPARISON: CT abdomen pelvis 11/12/2020. FINDINGS: Lung bases: Clear. Liver: Unremarkable. Gallbladder and bile ducts: Cholecystectomy, stable. No ductal dilation. Pancreas: No ductal dilation. Spleen: Unremarkable. Adrenals: Unremarkable. Kidneys and ureters: No pyelonephritis or hydronephrosis. Stomach and bowel: Severe fecal loading of the colon. No diverticulosis or diverticulitis. No significant interval change. No obstruction. Appendix: Intraperitoneal space: No free air or fluid. Bones/joints: No acute fracture. Soft tissues: Unremarkable. Vasculature: No aortic aneurysm. Lymph nodes: No enlarged lymph nodes. Bladder: No stones. Reproductive: Unremarkable for patient's age and this technique, with limited evaluation of the adnexa due to adjacent unopacified small bowel. IMPRESSION: 1. No acute intra-abdominal or intrapelvic abnormality, and no significant interval change. 2. Normal kidneys and appendix. Electronically signed by: Elisa Estrada M.D. 03/28/24 19:25 PM
[2024-03-28 19:48] LABS: Pregnancy Test, Serum Negative (Negative)
--- NOTE | 2024-03-28 20:11 | History & Physical Report ---
Date of Service March 28, 2024 Assessment & Plan (1) Prolonged fever: Plan: -Admit to the PCU on tele -Currently stable and non-toxic appearing -Has been experiencing recurrent fevers, generalized weakness, and WILSON over the past 2 weeks -Workup at this point has included CXR, CTA chest, Ct abd/pelvis w/IV con, CT head, and TTE which have been unremarkable -She has a leukocytosis of 11 with elevated ESR and CRP -UA and full respiratory biofire have been negative -S/P vancomycin and cefepime in the ED -We will continue Vancomycin and add Gentamicin and Rifampin to cover possible prosthetic valve endocarditis >After further investigation, it is recommended that rifampin be initiated approximately 3-5 days after other agents have been started as resistance to Rifampin can increase if blood cultures have not cleared prior to initiation >Will continue with Vancomycin and Gentamicin for now, follow LOU tomorrow and start Rifampin if indicated -Follow blood cultures and tick borne panel obtained in the ED -NPO at midnight in preparation for LOU tomorrow -Cardiology is following -BL SIN's for DVT PPX -AM CBC, CMP, mag, PT/INR (2) Panic disorder: Plan: -Continue Wellbutrin and Clonazepam (3) S/P pulmonary valve replacement: Plan: -See prolonged fever -Patient clarified that she is now on 162 mg Aspirin daily as she was previously on Plavix after her Pulmonary valve replacement but had a severe allergic reaction with plavix possibly being the source -Continue aspirin Plan The patient was discussed with Dr. 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 ED on 03/28/24 at the recommendation of her PCP and [employer] due to concerns for possible Endocarditis. She remained stable in the ED. Labs were significant for a leukocytosis of 11 with neutrophil predominance of 9, sodium of 132, CRP of 9.27, ESR of 56, procal WNL, negative UA, and negative full respiratory biofire. Chest xray, CT of the head/brain wo con, CTA of the chest, and CT of the abd/pelvis w/IV con were all read as negative for acute findings. The patient also underwent outpatient TTE earlier today which noted mild-moderate tricuspid regurgitation and did not note obvious vegetations. The patient was evaluated by [facility] in the ED (please see their note for details) and was recommended admission with empiric antibiotic coverage and LOU tomorrow. Prior to admission blood cultures were obtained, the patient was given a dose of ceftriaxone and and Vancomycin. At the time of the exam the patient was lying in bed in no acute distress. She states that she has been experiencing low grade fevers up to 100.9F, genera lized weakness, and increased WILSON over the past 2 weeks. She notes that she and her have been renovating their home and she did step on a staple in their bathroom. Review of her immunization record shows she had a Tdap as of 2020. She also noted recent dental work over the past 1-2 months, she did take her prophylactic amoxicillin prior. Has been taking prn tylenol for her symptoms. She does add that she still has her loop recorder in place, since losing weight she has been noticing increased pain at the insertion site like she is being poked by the leads when moving. Please refer to Dr. Delgado's attestation for any changes to the treatment plan Allergies Allergy/AdvReac Type Severity Reaction Status Date / Time clopidogrel [From Plavix] Allergy Severe Facial Verified 03/28/24 18:46 swelling topiramate [From Topamax] Allergy Mild Rash Verified 03/28/24 18:46 spironolactone AdvReac Intermediate Hypokalemia Verified 03/28/24 18:46 [From Aldactone] Home Medications Medication Instructions Recorded Confirmed Type dextroamphetamine-amphetamine 20 20 mg PO TID 06/15/20 03/28/24 History mg tablet (Adderall) adapalene 0.3 % topical gel 1 applic topical DAILY #45 grams 08/02/20 03/28/24 Rx benzoyl peroxide 5 % topical 1 applic topical DAILY #142 grams 08/02/20 03/28/24 Rx cleanser clindamycin phosphate 1 % topical 1 applic topical DAILY #30 mL 08/02/20 03/28/24 Rx solution clonazepam 2 mg tablet 2 - 3 mg PO HS PRN Anxiety 09/25/20 03/28/24 History aspirin 81 mg tablet,delayed 162 mg PO QAM 10/31/20 03/28/24 History release (Loreta Low Dose Aspirin) epinephrine 0.3 mg/0.3 mL 0.3 mg (0.3 mL) IM ONCE PRN 10/31/20 03/28/24 Rx injection, auto-injector allergic reaction #2 ea bupropion HCl 150 mg tablet,12 hr 300 mg PO QAM 03/05/21 03/28/24 History sustained-release (Wellbutrin SR) Saccharomyces boulardii 250 mg 500 mg (2 x 250 mg) PO BID #240 05/14/21 03/28/24 Rx capsule (Florastor) caps etonogestrel 0.12 mg-ethinyl 1 vag ring vaginal UD #3 ea 12/14/23 03/28/24 Rx estradiol 0.015 mg/24 hr vaginal ring amoxicillin 500 mg tablet 2,000 mg (4 x 500 mg) PO ONCE PRN 02/03/24 03/28/24 Rx dental procedure #4 tabs fluticasone propionate 50 2 spray intranasal DAILY 02/04/24 03/28/24 History mcg/actuation nasal spray,suspension (Allergy Relief (fluticasone)) losartan 25 mg tablet 25 mg PO QAM #90 tabs 03/14/24 03/28/24 Rx tirzepatide (weight loss) 10 10 mg subcut WK 03/28/24 03/28/24 History mg/0.5 mL subcutaneous pen injector (Zepbound) tirzepatide (weight loss) 7.5 7.5 mg subcut WK 03/28/24 03/28/24 History mg/0.5 mL subcutaneous pen injector (Zepbound) Past Med/Surg History Problem List Acute bacterial endocarditis History of endocarditis (Acute) Elevated C-reactive protein (Acute) Elevated erythrocyte sedimentation rate (Acute) Prolonged fever (Acute) Fever History of aortic valve disease Congenital bicuspid aortic valve > childhood aortic valve repair, complicated with complete heart block and PPM insertion (1984) > Ross procedure (1996) HENOK positive Obesity SBE (subacute bacterial endocarditis) prophylaxis candidate 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 Layne) and locally Dr. Patel locally Polycystic ovaries History of congenital heart disease ADD (attention deficit disorder) Ventricular septal defect s/p VSD (1984) Heart block, AV (Acute) PACEMAKER INSERTED Endometriosis Medical History Thoracic ascending aortic aneurysm 4.7cm ascending thoracic aortic aneurysm under surveillance by cardiology 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 (10/2020) Pacemaker Aortic valve repair, complicated with complete heart block and PPM insertion (1984) > multiple removal/replacements with most recently Medtronic Micra AV pacing system (10/2020) Hx of thoracic outlet syndrome Surgical History S/P exploratory laparotomy (03/15/21) w/ excision of subcutaneous nodule Status post cardiac pacemaker procedure Aortic valve repair, complicated with complete heart block and PPM insertion (1984) > PPM generator extraction/ lead retained (2009) > Dual chamber Medtronic pacemaker placed (2012) > Removal of Medtronic pacemaker d/t thoracic outlet syndrome (2017) > Medtronic Micra AV pacing system (10/2020) History of nasal surgery + septoplasty History of cardiac cath x2 History of surgery I&D right groin area s/p cath (11/2020) > resolved S/P cardiac pacemaker procedure (10/2020) Medtronic Micra AV pacing system (10/2020) Status post placement of implantable loop recorder 2017 H/O aortic valve repair (1984) 1984 ([facility]) S/P Ross procedure At age 16 S/P VSD repair (1984) S/P section x1 H/O umbilical hernia repair Incarcerated umbilical hernia repair S/P laparoscopic cholecystectomy Family History Father Diabetes Coronary heart disease Hypertension Mother Hypertension Aunt Breast cancer paternal aunt Other No family history of adverse response to anesthesia Denies family history of Ovarian cancer Prostate cancer Myocardial infarction Colorectal cancer Social History Smoking Status: Never smoker Tobacco Type: Cigarettes packs per day: 1; Second Hand Exposure: No; Do You Dip or Chew Tobacco: No; Tobacco Cessation Education Requested by Patient: No Hx Alcohol Use: Yes Alcohol type: beer and wine Alcohol Intake Frequency: Monthly or Less Alcohol Intake Frequency Comment: rare Hx Substance Use: No Preferred Language: Sinhala Communication Ability: Effective Visual Impairment: No Limitations Hearing Ability: Normal House Calls Nurse Required: No Beliefs That Will Affect Care: None marital status: Current Living Situation: Significant Other Current Living Situation Comment: LIVES WITH SON current occupational status: employed 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 How many Children do You have: 1 Other Information That Helps Us Care for You: No Feels Safe at Home: Yes Safety Concerns: Feels Safe At This Time Diet: regular caffeine: Yes during the past year weight has: remained stable Dental Care, Regularly: Yes Physical Activity Frequency: Other Seatbelt Use: always Sunscreen Use: Yes Assistive Devices: None Physical Exam Physical Exam: Physical Exam: General: In no acute distress, stated age, well-nourished, non-toxic appearing HEENT: Normocephalic, atraumatic, no scleral icterus, pupils around round, symmetrical, and reactive to light, moist mucus membranes, trachea midline, no thyromegaly Chest/Pulm: No respiratory distress, symmetrical chest expansion, clear breath sounds throughout >No signs of infection at the site of previous loop recorder insertion site Cardiac: RRR, 4/6 systolic murmur noted Abdomen: Negative for ascites and bruising, normoactive bowel sounds, soft, non-tender to palpation throughout Musculoskeletal: Symmetrical and without signs of acute trauma, upper and lower extremities with full ROM, no atrophy, spasticity, or flaccidity Extremities: Radial, dorsalis pedis, and posterior tibial pulses are intact and symmetrical, no edema noted in the BL LE's Skin: Warm, dry, no rashes , lesions, or scars noted Neuro: Alert and oriented to person, place, month, year, and president, no focal defects, no tremors noted Psych: No acute distress, calm and cooperative during the exam Results & Data Results & Data Vital Signs (Past 12 Hours) Vital Signs Temp Pulse Resp BP Pulse Ox O2 Del Method 03/28/24 17:00 96 H 27 H 97 03/28/24 16:53 100 H 03/28/24 16:52 97 H 24 03/28/24 16:08 36.9 C 104 H 17 107/69 98 Room Air Laboratory Results Abnormal lab results 03/28/24 03/28/24 Range/Units 16:21 18:37 WBC 11.10 H (4.8-10.8) K/ul RBC 3.89 L (4.20-5.40) M/uL Hct 34.7 L (37.0-47.0) % Neut # (Auto) 9.00 H (1.40-6.50) K/uL Sodium 132 L (136-145) mmol/L Chloride 97 L (98-107) mmol/L BUN/Creatinine Ratio 7.8 L (10-20) Alkaline Phosphatase 145 H (34-104) U/L Urine Blood Trace H (Negative) Diagnostic Findings Chest X-Ray 03/28/24 16:11 SINGLE VIEW CHEST CLINICAL HISTORY: Sepsis. FINDINGS: A PA chest radiograph is compared to study dated 11/05/2020 and correlated with chest CT performed the same day 03/28/2024. The patient is status post midline sternotomy and cardiac valve surgery. A pacemaker lead is unchanged in position appear The cardiomediastinal silhouette is top normal for projection. The lungs and pleural spaces are clear. No pneumothorax is seen. The bony thorax is grossly intact. An electronic device projects over the left lower chest. IMPRESSION: The lungs are clear. ACT 112: Negative or not required by law. Electronically signed by: Stephane Wiseman M.D. 03/28/2024 4:37 PM Abdomen/Pelvis CT 03/28/24 18:14 Exam(s): CT ABDOMEN + PELVIS With Contrast IV Amt: 90 ml optiray 320 EXAM: CT Abdomen and Pelvis With Intravenous Contrast CLINICAL HISTORY: Reason for exam: lower abd pain, fever. TECHNIQUE: Axial computed tomography images of the abdomen and pelvis with intravenous contrast. CTDI is 13.75 mGy and DLP is 767.62 mGy-cm. Automated exposure control was utilized for the study. A dose lowering technique was utilized adhering to the principles of ALARA. CONTRAST: Patient received 90 ml optiray 320 of IV contrast COMPARISON: CT abdomen pelvis 11/12/2020. FINDINGS: Lung bases: Clear. Liver: Unremarkable. Gallbladder and bile ducts: Cholecystectomy, stable. No ductal dilation. Pancreas: No ductal dilation. Spleen: Unremarkable. Adrenals: Unremarkable. Kidneys and ureters: No pyelonephritis or hydronephrosis. Stomach and bowel: Severe fecal loading of the colon. No diverticulosis or diverticulitis. No significant interval change. No obstruction. Appendix: Intraperitoneal space: No free air or fluid. Bones/joints: No acute fracture. Soft tissues: Unremarkable. Vasculature: No aortic aneurysm. Lymph nodes: No enlarged lymph nodes. Bladder: No stones. Reproductive: Unremarkable for patient's age and this technique, with limited evaluation of the adnexa due to adjacent unopacified small bowel. IMPRESSION: 1. No acute intra-abdominal or intrapelvic abnormality, and no significant interval change. 2. Normal kidneys and appendix. Electronically signed by: Elisa Estrada M.D. 03/28/24 19:[address] 03/28/24 18:14 Exam(s): CT HEAD Without Contrast EXAM: CT Head Without Intravenous Contrast CLINICAL HISTORY: Reason for exam: LLOYD, fever. TECHNIQUE: Axial computed tomography images of the head/brain without intravenous contrast. CTDI is 37.01 mGy and DLP is 547.75 mGy-cm. Automated exposure control was utilized for the study. A dose lowering technique was utilized adhering to the principles of ALARA. COMPARISON: Head CT 12/28/18. FINDINGS: Brain: No mass effect or acute infarct. No acute hemorrhage. Ventricles: No hydrocephalus or midline shift. Bones/joints: No skull fracture. Soft tissues: No scalp hematoma. Visualized Sinuses: Clear. Mastoid air cells: No mastoid effusion. IMPRESSION: 1. No acute intracranial abnormality, and no change. Electronically signed by: Elisa Estrada M.D. 03/28/24 19:20 PM ECG Additional Comments: Sinus tachycardia Low voltage QRS Borderline ECG When compared with ECG of 05-NOV-2020 13:04, T wave inversion now evident in Anterior leads Code Status & VTE Plan Code Status Full code VTE Prophylaxis Plan VTE Prophylaxis will be ordered: Yes Supervising Physician Co-Signing Physician Notes Attending addendum: I have physically seen this patient, have supervised the medical residents activities, and agree with the H&P unless as otherwise noted. Assessment and Plan: Persistent fever/history of endocarditis/history multiple cardiac surgeries- Empiric antibiotics for endocarditis: Vancomycin IV and gentamicin IV As noted, rifampin can be added after 3-5 days if needed N.p.o. except medications after midnight for LOU in the a.m. with Dr. Patel Follow blood culture and sensitivities Follow-up tickborne panel Follow serial CBC with differential, chemistry profile, magnesium and coag Panic disorder- Continue Wellbutrin and clonazepam PG Care Time/CCT Total # of Minutes Spent Total Time Spent with Patient: Total time spent is greater than 50% in coordination of care (as documented) at patient's floor/unit and/or counseling patient: Coding [place] [address] INT INP/OBS CARE 3/75MIN Patient Type Established Medical Decision Making High Complexity Diagnoses Prolonged fever R50.9 Panic disorder F41.0 S/P pulmonary valve replacement Z95.2
[2024-03-28] MEDS ORDERED: GENTAMICIN CONSULT ACTIVE PRN (20:15)
[2024-03-28] MEDS ORDERED: ONDANSETRON INJ 2 MG/ML 2 ML VIAL IV PRN (20:36)
[2024-03-28] MEDS ORDERED: GENTAMICIN SULFATE 100 MG in DEXTROSE 5% 100 ML IV STA (20:39)
[2024-03-28] MEDS ORDERED: rifAMPin 300 MG in DEXTROSE 5% 500 ML IV SCH ×2 (20:45→21:00)
[2024-03-28] MEDS: GENTAMICIN SULFATE IV STA (22:55)
[2024-03-28] MEDS: DEXTROSE 5% IV STA (22:55)
[2024-03-29] MEDS: ACETAMINOPHEN 325 MG TAB PO PRN (03:44)
[2024-03-29] MEDS: DEXTROSE 5% IV SCH (05:25)
[2024-03-29] MEDS: GENTAMICIN SULFATE IV SCH (05:25)
[2024-03-29 06:06] LABS: Basophils # (auto) 0.06 K/uL (0.00-0.20); Basophils % (auto) 0.7 %; Eosinophils # (auto) 0.11 K/uL (0.00-0.50); Eosinophils % (auto) 1.2 %; Hematocrit (blood only) 30.8 % (37.0-47.0); Hemoglobin 10.4 g/dl (12.0-16.0); Immature Granulocytes # (auto) 0.05 K/uL (0.01-0.20); Immature Granulocytes % (auto) 0.5 %; Lymphocytes # (auto) 0.94 K/uL (1.20-3.40); Lymphocytes % (auto) 10.2 %; Mean Corpuscular Hemoglobin 30.1 pg (25.0-34.0); Mean Corpuscular Hgb Conc 33.8 g/dL (32.0-36.0); Mean Corpuscular Volume 89.3 fL (80.0-100.0); Mean Platelet Volume 9.9 fL (9.4-12.4); Monocytes # (auto) 0.48 K/uL (0.11-0.59); Monocytes % (auto) 5.2 %; Neutrophils # (auto) 7.57 K/uL (1.40-6.50); Neutrophils % (auto) 82.2 %; Platelet Count 245 K/uL (130-400); RDW Coefficient of Variation 11.6 % (11.5-14.5); RDW Standard Deviation 37.5 fL (36.4-46.3); Red Blood Count 3.45 M/uL (4.20-5.40); White Blood Count 9.21 K/ul (4.8-10.8)
[2024-03-29] MEDS: DEXTROAMPHETAMINE/AMPHETAMINE IR 10 MG TAB PO SCH (06:29)
[2024-03-29] MEDS: VANCOMYCIN HCL 1,000 MG in SODIUM CHLORIDE 0.9% 250 ML IV SCH (06:29)
[2024-03-29 06:46] LABS: Prothrombin Time 10.5 Seconds (9.0-12.0)
[2024-03-29 06:47] LABS: Albumin Level 3.2 gm/dl (3.4-5.0); BUN Creatinine Ratio 9.3 (10-20); Bilirubin,Total 0.4 mg/dl (0.2-1.0); Calcium 8.5 mg/dl (8.6-10.3); Est GFR (African American) 113.9 ml/min; Est GFR (Non-African American) 98.3 ml/min; Globulin 3.1 gm/dl (2.5-4.0); Magnesium 1.7 mg/dl (1.7-2.4); Potassium 4.2 mmol/L (3.5-5.1); Total Protein 6.3 gm/dl (6.0-8.3)
--- NOTE | 2024-03-29 07:05 | Anesthesiology Consultation ---
Date of Service March 29, 2024 Assessment & Plan Chart Review Chart Review: president [place] initiated History Surgery Operation Date: 03/29/24 07:30 Proposed Procedures p Transesophageal Echo w/Anesthesia - Curits Patel DO Height/Weight Height: 5 ft 7 in Weight: 73.2 kg Allergies Allergy/AdvReac Type Severity Reaction Status Date / Time clopidogrel [From Plavix] Allergy Severe Facial Verified 03/28/24 18:46 swelling topiramate [From Topamax] Allergy Mild Rash Verified 03/28/24 18:46 spironolactone AdvReac Intermediate Hypokalemia Verified 03/28/24 18:46 [From Aldactone] Medications Home Medications Medication Instructions Recorded Confirmed Last Taken dextroamphetamine-amphetamine 20 20 mg PO TID 06/15/20 03/28/24 03/28/24 08:00 mg tablet (Adderall) adapalene 0.3 % topical gel 1 applic topical DAILY #45 grams 08/02/20 03/28/24 03/28/24 benzoyl peroxide 5 % topical 1 applic topical DAILY #142 grams 08/02/20 03/28/24 03/28/24 cleanser clindamycin phosphate 1 % topical 1 applic topical DAILY #30 mL 08/02/20 03/28/24 03/28/24 solution clonazepam 2 mg tablet 2 - 3 mg PO HS PRN Anxiety 09/25/20 03/28/24 03/11/21 aspirin 81 mg tablet,delayed 162 mg PO QAM 10/31/20 03/28/24 03/28/24 release (Loreta Low Dose Aspirin) epinephrine 0.3 mg/0.3 mL 0.3 mg (0.3 mL) IM ONCE PRN 10/31/20 03/28/24 11/12/20 injection, auto-injector allergic reaction #2 ea bupropion HCl 150 mg tablet,12 hr 300 mg PO QAM 03/05/21 03/28/24 03/28/24 sustained-release (Wellbutrin SR) Saccharomyces boulardii 250 mg 500 mg (2 x 250 mg) PO BID #240 05/14/21 03/28/24 03/28/24 08:00 capsule (Florastor) caps etonogestrel 0.12 mg-ethinyl 1 vag ring vaginal UD #3 ea 12/14/23 03/28/24 Unknown estradiol 0.015 mg/24 hr vaginal ring amoxicillin 500 mg tablet 2,000 mg (4 x 500 mg) PO ONCE PRN 02/03/24 03/28/24 Unknown dental procedure #4 tabs fluticasone propionate 50 2 spray intranasal DAILY 02/04/24 03/28/24 03/28/24 mcg/actuation nasal spray,suspension (Allergy Relief (fluticasone)) losartan 25 mg tablet 25 mg PO QAM #90 tabs 03/14/24 03/28/24 03/28/24 tirzepatide (weight loss) 10 10 mg subcut WK 03/28/24 03/28/24 Unknown mg/0.5 mL subcutaneous pen injector (Zepbound) tirzepatide (weight loss) 7.5 7.5 mg subcut WK 03/28/24 03/28/24 Unknown mg/0.5 mL subcutaneous pen injector (Zepbound) Active Medications Generic Name Dose Route Start Last Admin Trade Name Freq PRN Reason Stop Dose Admin Acetaminophen 650 mg 03/28/24 20:32 03/29/24 03:44 Acetaminophen 325 Mg Tab PO 04/27/24 20:44 650 mg Q6H PRN Administration pain(1-4),headache,fever Amphetamine/Dextroamphetamine 20 mg 03/29/24 06:00 03/29/24 06:29 Dextroamphetamine/Amphetamine Ir 10 Mg Tab PO 04/12/24 05:59 Not Given TID@0600,1100,1600 JIM Gentamicin Sulfate 70 mg/ 101.75 mls @ 100 mls/hr 03/29/24 06:00 03/29/24 06:30 Dextrose IV 05/10/24 05:59 Infused Q8H JIM Infusion Vancomycin HCl 1,000 mg/ 270 mls @ 200 mls/hr 03/29/24 06:00 03/29/24 06:29 Sodium Chloride IV 05/10/24 05:59 200 mls/hr Q12H JIM Administration Past Medical History Medical History Thoracic ascending aortic aneurysm 4.7cm ascending thoracic aortic aneurysm under surveillance by cardiology 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 (10/2020) Pacemaker Aortic valve repair, complicated with complete heart block and PPM insertion (1984) > multiple removal/replacements with most recently Medtronic Micra AV pacing system (10/2020) Hx of thoracic outlet syndrome Past Family History Family History Father Diabetes Coronary heart disease Hypertension Mother Hypertension Aunt Breast cancer paternal aunt Other No family history of adverse response to anesthesia Denies family history of Ovarian cancer Prostate cancer Myocardial infarction Colorectal cancer Past Surgical History Surgical History S/P exploratory laparotomy (03/15/21) w/ excision of subcutaneous nodule Status post cardiac pacemaker procedure Aortic valve repair, complicated with complete heart block and PPM insertion (1984) > PPM generator extraction/ lead retained (2009) > Dual chamber Medtronic pacemaker placed (2012) > Removal of Medtronic pacemaker d/t thoracic outlet syndrome (2017) > Medtronic Micra AV pacing system (10/2020) History of nasal surgery + septoplasty History of cardiac cath x2 History of surgery I&D right groin area s/p cath (11/2020) > resolved S/P cardiac pacemaker procedure (10/2020) Medtronic Micra AV pacing system (10/2020) Status post placement of implantable loop recorder 2017 H/O aortic valve repair (1984) 1984 ([facility]) S/P Ross procedure At age 16 S/P VSD repair (1984) S/P section x1 H/O umbilical hernia repair Incarcerated umbilical hernia repair S/P laparoscopic cholecystectomy Social History Smoking Status: Never smoker tobacco type: cigarettes Do You Dip or Chew Tobacco: No Hx Alcohol Use: Yes Alcohol type: beer and wine alcohol intake frequency: a few times a week Hx Substance Use: No substance use type: does not use Physical Exam Vital Signs Last Vital Signs Temp 99.3 F 03/29/24 03:34 Pulse 99 H 03/29/24 03:34 Resp 18 03/29/24 03:34 BP 106/63 03/29/24 03:34 Pulse Ox 98 03/29/24 03:34 O2 Del Method Room Air 03/29/24 03:34 Testing Laboratory Results 03/29/24 05:41 03/29/24 05:41 PT 10.5 Seconds (9.0-12.0) 03/29/24 05:41 INR 1.0 (0.9-1.1) 03/29/24 05:41 APTT 29 Seconds (21-31) 03/28/24 16:21 Urine Color Yellow 03/28/24 18:37 Urine Appearance Clear (Clear) 03/28/24 18:37 Urine pH 7.5 (4.5-7.5) 03/28/24 18:37 Ur Specific [place] 1.008 (1.000-1.030) 03/28/24 18:37 Urine Protein Negative (Negative) 03/28/24 18:37 Urine Glucose (UA) Negative (Negative) 03/28/24 18:37 Urine Ketones Negative (Negative) 03/28/24 18:37 Urine Nitrite Negative (Negative) 03/28/24 18:37 Ur Leukocyte Esterase Negative (Negative) 03/28/24 18:37 Urine WBC (Auto) 0-5 /hpf (0-5) 03/28/24 18:37 Urine RBC (Auto) 0-2 /hpf (0-2) 03/28/24 18:37 U Hyaline Cast (Auto) 0-2 /lpf (0-2) 03/28/24 18:37 U Epithel Cells (Auto) 0-2 /hpf (0-2) 03/28/24 18:37 Urine Bacteria (Auto) None Seen (None Seen) 03/28/24 18:37 Electrocardiogram Date: 03/28/24 Sinus tachycardia, rate 103 bpm Low voltage QRS Borderline ECG When compared with ECG of 05-NOV-2020 13:04, T wave inversion now evident in Anterior leads Chest X-Ray Date: 03/28/24 FINDINGS: A PA chest radiograph is compared to study dated 11/05/2020 and correlated with chest CT performed the same day 03/28/2024. The patient is status post midline sternotomy and cardiac valve surgery. A pacemaker lead is unchanged in position appear The cardiomediastinal silhouette is top normal for projection. The lungs and pleural spaces are clear. No pneumothorax is seen. The bony thorax is grossly intact. An electronic device projects over the left lower chest. IMPRESSION: The lungs are clear. Echocardiogram Date: 03/28/24 LV systolic function is normal Mild to mod TR RVSP is elevated at 40-50mmHg
--- NOTE | 2024-03-29 07:13 | Hospitalist Progress Note ---
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 Strep species suggested by preliminary PCR Presented recurrent fevers, generalized weakness, and WILSON over the past 2 weeks Patient on 162 mg of aspirin for her valve prophylaxis. She cannot tolerate Plavix stable and non-toxic appearing no defined source on CTA chest, Ct abd/pelvis w/IV con, CT head, and TTE which have been unremarkable ua with some blood small leuk esterace - elevated ESR and CRP - respiratory biofire have been negative Infectious disease consultation -Agree with Ceftriaxone 2G IV daily, await sensi/italia of antibiotics -Repeat Blood cultures q24-48 hours to document clearance -Follow Cardiology recommendations re lead evaluation/extraction -Monitor for seeding to skin, joints, brain, lungs Patient did have dental cleaning within the last few weeks she did take appropriate prophylaxis prior to the cleaning patient also did have some puncture wounds doing home remodeling none of them appear to be overtly infected Shady Nunez is consulted retail support manager, and he has been in touch both with [facility] and [facility] who has been involved in the patient's cardiac care in the past. Certainly will need to coordinate outpatient infectious disease for after the patient is discharged (2) Panic disorder: Plan: -Continue Wellbutrin and Clonazepam Plan Admission and Anticipated Discharge Date Admission Date: March 28, 2024 Subjective Patient actually feels much improved she was seen in the afternoon when some of the discussion of the etiology of her discomfort was brought about being in the concern for bacterial endocarditis She denies any peripheral stigmata of endocarditis no splinter hemorrhages or painful Osler's nodes. Physical Exam Physical Exam: Awake alert appropriate. As mentioned no peripheral stigmata of endocarditis Card exam is regular without murmurs Does have tenderness along her left rib cage approximately may be the fourth or fifth rib in the midaxillary line there is no skin changes over this area but will do rib x-rays. Patient also has a loop recorder in her left chest which is uncomfortable to her but this has been ongoing for some time. Results & Data Results & Data Vital Signs (Past 12 Hours) Vital Signs Temp Pulse Pulse Resp BP BP Pulse Ox 03/29/24 03:34 99.3 F 99 H 18 106/63 98 03/29/24 00:00 91 H 03/28/24 21:45 97.8 F 87 18 126/78 97 03/28/24 21:11 03/28/24 21:05 89 17 03/28/24 21:05 114/90 03/28/24 21:02 89 16 03/28/24 21:00 92 H 16 03/28/24 20:30 87 26 H 03/28/24 20:00 89 25 H 03/28/24 20:00 117/86 03/28/24 19:30 90 19 98 O2 Del Method 03/29/24 03:34 Room Air 03/29/24 00:00 03/28/24 21:45 Room Air 03/28/24 21:11 Room Air 03/28/24 21:05 03/28/24 21:05 03/28/24 21:02 03/28/24 21:00 03/28/24 20:30 03/28/24 20:00 03/28/24 20:00 03/28/24 19:30 Room Air Laboratory Results Reviewed CBC reviewed chemistry personally called consult infectious disease Discussed case with cardiology PG Care Time/CCT Total # of Minutes Spent Total Time Spent with Patient: Total time spent is greater than 50% in coordination of care (as documented) at patient's floor/unit and/or counseling patient: Coding Level of Care Code 70128 SUB INP/OBS CARE 3/50MIN Diagnoses Prolonged fever R50.9 Panic disorder F41.0
--- NOTE | 2024-03-29 08:06 | History & Physical Bridge Note ---
Date of Service March 29, 2024 History & Physical Bridge Note I have examined the patient, reviewed the History & Physical and in the interval since the performance of the History & Physical I have noted the following changes of clinical significance: no changes noted. Patient with tmax of 37.7 overnight and night sweats. 4/4 blood cultures have preliminarily yielded gram positive cocci in chains. Patient is on vancomycin and gent. Informed consent for LOU obtained. Patient elects to proceed.
[2024-03-29] MEDS: BENZOCAINE/TETRACAIN/BUTAM 50 APPLN/5 GM CAN EXT ONE (08:10)
[2024-03-29] MEDS ORDERED: LIDOCAINE 2% 2 ML VIAL/AMP(20MG/ML) INFIL ONE (08:51)
[2024-03-29] MEDS ORDERED: PROPOFOL IV EMULSION 10 MG/ML 20 ML VIAL IV ONE (08:51)
--- NOTE | 2024-03-29 08:51 | Electrocardiogram Report ---
Test Reason : Blood Pressure : / mmHG Vent. Rate : 103 BPM Atrial Rate : 103 BPM P-R Int : 156 ms QRS Dur : 082 ms QT Int : 326 ms P-R-T Axes : 032 077 068 degrees QTc Int : 427 ms Sinus tachycardia Low voltage QRS Borderline ECG When compared with ECG of 05-NOV-2020 13:04, T wave inversion now evident in Anterior leads Confirmed by Jasson Escalera ([id number]) on 03/29/2024 8:51:15 AM Referred By: REFERRED SELF Confirmed By:Florin Escalera
--- NOTE | 2024-03-29 08:52 | Anesthesiology Progress Note ---
Date of Service March 29, 2024 Anesthesia Post Procedure Vital Signs Vital Signs: Temp Pulse Pulse Pulse Resp BP BP 03/29/24 08:41 86 18 94/54 L 03/29/24 07:30 98.2 F 78 16 101/61 03/29/24 03:34 99.3 F 99 H 18 106/63 03/29/24 00:00 91 H 03/28/24 21:45 97.8 F 87 18 126/78 03/28/24 21:11 03/28/24 21:05 89 17 03/28/24 21:05 114/90 03/28/24 21:02 89 16 03/28/24 21:00 92 H 16 03/28/24 20:30 87 26 H 03/28/24 20:00 89 25 H 03/28/24 20:00 117/86 03/28/24 19:30 90 19 03/28/24 19:07 99 H 17 03/28/24 19:07 114/69 03/28/24 19:00 88 20 03/28/24 18:33 115/74 03/28/24 18:33 90 13 03/28/24 18:32 92 H 03/28/24 18:00 90 27 H 03/28/24 17:30 96 H 23 03/28/24 17:00 96 H 27 H 03/28/24 16:53 100 H 03/28/24 16:52 97 H 24 03/28/24 16:08 98.4 F 104 H 17 107/69 Pulse Ox O2 Del Method 03/29/24 08:41 97 Room Air 03/29/24 07:30 99 Room Air 03/29/24 03:34 98 Room Air 03/29/24 00:00 03/28/24 21:45 97 Room Air 03/28/24 21:11 Room Air 03/28/24 21:05 03/28/24 21:05 03/28/24 21:02 03/28/24 21:00 03/28/24 20:30 03/28/24 20:00 03/28/24 20:00 03/28/24 19:30 98 Room Air 03/28/24 19:07 99 03/28/24 19:07 03/28/24 19:00 100 03/28/24 18:33 03/28/24 18:33 03/28/24 18:32 03/28/24 18:00 03/28/24 17:30 03/28/24 17:00 97 03/28/24 16:53 03/28/24 16:52 03/28/24 16:08 98 Room Air Transfer of Care Handoff Completed per policy Notes Mental Status: alert / awake / arousable and participated in evaluation Patient Amnestic to Procedure: Yes Nausea / Vomiting: adequately controlled Pain: adequately controlled Airway Patency, RR, SpO2: stable & adequate BP & HR: stable & adequate Hydration State: stable & adequate Anesthetic Complications: no major complications apparent and Pt Satisfied with anesthetic care
--- NOTE | 2024-03-29 08:57 | Post Operative Brief Note ---
Cardiology Brief Post Op Date of Surgery March 29, 2024 Pre & Post Diagnosis Operation Date: 03/29/24 07:30 Procedure Preprocedure diagnosis: Fever, bacteremia, assess for evidence of endocarditis Post procedure diagnosis: No definite valvular vegetation seen, there is thickening of the retained pacemaker wire suggestive of possible vegetation Transesophageal echocardiogram procedure: After informed consent was obtained and a timeout was performed the patient was sedated with the assistance of the anesthesia team receiving a total of 320 mg of IV propofol and 80 mg of IV lidocaine. The mitral valve was well-visualized without vegetation, mild mitral regurgitation is present The aortic valve is well-visualized with findings of mild to moderate aortic valve regurgitation. No vegetation The pulmonic valve prosthesis is suboptimally visualized but without gross evidence of vegetation. Tricuspid valve was well-visualized. Moderate tricuspid regurgitation is present, with jet that originates where the retained pacemaker lead passes through the tricuspid valve apparatus. There is a pacemaker lead that enters the at the superior vena cava, right atrium, and through the tricuspid valve. There are several areas of focal thickening of the pacemaker lead as it traverses the right atrium concerning for possible vegetation. The Micra wireless pacemaker in the right ventricular apex is not adequately vis ualized to allow for comment. Fashion Buyer Curtis Patel DO Crew Mess Attendant Carla Hernandez, STEVEN Estimated Blood Loss 0 Findings Consistent with Post-Op Diagnosis Anesthesia Type MAC Complications No complications were immediately apparent.
--- NOTE | 2024-03-29 09:04 | Cardiology Progress Note ---
Date of Service March 29, 2024 Assessment & Plan (1) Acute bacterial endocarditis: Plan: Patient with 3-week history of fevers and night sweats. Has risk factors for endocarditis including past endocarditis, history of Ross procedure, transcatheter pulmonic valve replacement, has a retained pacemaker lead that traverses the right atrium, tricuspid valve, and terminates in the proximal interventricular septum, and a Micra wireless pacemaker system. 4/4 blood cultures obtained yesterday prior to the initiation of IV antibiotics have yielded gram-positive cocci in chains suggestive of Streptococcus species. Patient initially started on vancomycin and gentamicin, now with blood culture results transition to Rocephin. I need to review the patient's operative note from her pacemaker/lead extraction at [facility] to determine if there was an issue that precluded removal of the lead previously. CT chest redemonstrated the known 4.6 cm ascending aortic aneurysm. 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 Admission and Anticipated Discharge Date Admission Date: March 28, 2024 Subjective Patient seen in cardiology follow-up prior to, during and post transesophageal echocardiogram. The patient's maximum temperature last evening was 37.7, and she describes night sweats with saturated pajamas. Physical Exam Constitutional: + ill appearing; no acute distress Respiratory: + cough Auscultation: no crackles, no rales, no rhonchi and no wheezes Cardiovascular: Heart Sounds: normal S1, normal S2 and + murmur (1/6 SM ) Vessels: no JVD Extremities: no edema Musculoskeletal: no cyanosis or clubbing, extremities motor strength 5/5 Neurologic: PERRL, EOMI, accommodation nl, no face palsy, no dysarthria Results & Data Vital Signs (Past 12 Hours) Vital Signs Temp Pulse Pulse Pulse Resp BP BP 03/29/24 08:41 86 18 94/54 L 03/29/24 07:30 36.8 C 78 16 101/61 03/29/24 03:34 37.4 C 99 H 18 106/63 03/29/24 00:00 91 H 03/28/24 21:45 36.6 C 87 18 126/78 03/28/24 21:11 03/28/24 21:05 89 17 03/28/24 21:05 114/90 03/28/24 21:02 89 16 03/28/24 21:00 92 H 16 Pulse Ox O2 Del Method 03/29/24 08:41 97 Room Air 03/29/24 07:30 99 Room Air 03/29/24 03:34 98 Room Air 03/29/24 00:00 03/28/24 21:45 97 Room Air 03/28/24 21:11 Room Air 03/28/24 21:05 03/28/24 21:05 03/28/24 21:02 03/28/24 21:00 Laboratory Results Cardiac Enzymes 03/28/24 03/29/24 Range/Units 16:21 05:41 AST 24 14 (13-39) U/L Troponin I High Sens 6.3 (0-14) pg/ml Coagulation 03/28/24 03/29/24 Range/Units 16:21 05:41 PT 10.2 10.5 (9.0-12.0) Seconds APTT 29 (21-31) Seconds CBC 03/28/24 03/29/24 Range/Units 16:21 05:41 WBC 11.10 H 9.21 (4.8-10.8) K/ul RBC 3.89 L 3.45 L (4.20-5.40) M/uL Hgb 12.1 10.4 L (12.0-16.0) g/dl Hct 34.7 L 30.8 L (37.0-47.0) % Plt Count 304 245 (130-400) K/uL Neut # (Auto) 9.00 H 7.57 H (1.40-6.50) K/uL Lymph # (Auto) 1.29 0.94 L (1.20-3.40) K/uL Rhea # (Auto) 0.59 0.48 (0.11-0.59) K/uL Eos # (Auto) 0.08 0.11 (0.00-0.50) K/uL Baso # (Auto) 0.05 0.06 (0.00-0.20) K/uL Comprehensive Metabolic Panel 03/28/24 03/29/24 Range/Units 16:21 05:41 Sodium 132 L 134 L (136-145) mmol/L Potassium 3.8 4.2 (3.5-5.1) mmol/L Chloride 97 L 105 (98-107) mmol/L Carbon Dioxide 27 22 (21-32) mmol/L BUN 7 7 (6-23) mg/dl Creatinine 0.90 0.75 (0.6-1.2) mg/dl Glucose 78 98 (70-99(Fasting)) mg/dl Calcium 9.8 8.5 L (8.6-10.3) mg/dl AST 24 14 (13-39) U/L ALT 25 16 (7-52) U/L Alkaline Phosphatase 145 H 104 (34-104) U/L Total Protein 8.0 6.3 D (6.0-8.3) gm/dl Albumin 4.0 3.2 L (3.4-5.0) gm/dl Intake and Output 03/28/24 03/29/24 03/29/24 22:59 06:59 14:59 Intake Total 1100 / 1838.50 738.50 / 1838.50 270 / 270 Balance 1100 / 1838.50 738.50 / 1838.50 270 / 270 Intake: IV 1100 / 1838.50 738.50 / 1838.50 270 / 270 Acetaminophen 1,000 mg In 100 100 / 100 ml @ 400 mls/hr IV NOW STA Rx#: [id number] Gentamicin Sulfate 70 mg In 203.50 / 203.50 Dextrose 5% 100 ml @ 100 mls/hr IV Q8H [facility] Rx#:[id number] Sodium Chloride 0.9% 1,000 ml @ 1000 / 1000 999 mls/hr IV .Q1H1M ONE Rx#: [id number] Vancomycin HCl 1,000 mg In 270 / 270 Sodium Chloride 0.9% 250 ml @ 200 mls/hr IV Q12H [facility] Rx#: [id number] Vancomycin HCl 1,750 mg In 535 / 535 Sodium Chloride 0.9% 500 ml @ 200 mls/hr IV NOW ONE Rx#: [id number] Other: Weight 68.2 kg 73.2 kg 73.2 kg Weight Measurement Method Standing Scale Built in [facility] Patient Weight 03/30/24 06:59 Weight 73.2 kg
[2024-03-29] MEDS: buPROPion XL 300 MG TABCR PO SCH (09:39)
[2024-03-29] MEDS: ASPIRIN 81 MG ECTAB PO SCH (09:40)
[2024-03-29] MEDS: LOSARTAN POTASSIUM 25 MG TAB PO SCH (10:07)
[2024-03-29] MEDS: cefTRIAXone SODIUM 2,000 MG/50 ML BAG IV SCH (10:17)
--- NOTE | 2024-03-29 16:13 | Infectious Disease Consult ---
Date of Consultation March 29, 2024 Assessment & Plan (1) History of endocarditis: (2) History of aortic valve disease: Plan #Streptococcal bacteremia #CHD s/p VSD, TV repair #Pulmonic valve replacement #Retained pacemaker lead with echodensity based on LOU (CIED lead infection) MICRO 03/28 Blood cultures 7 / 8 bottles GPC in chain, BCID streptococcus 43 year old F with PMH of a history of congenital heart disease with VSD repair, tricuspid valve repair, ROSS procedure, and distant history of endocarditis as a child, pulmonic valve replacement, retained pacemaker lead, h/o COVID in 11/2023, 2 recent prior UTIs, last dental cleaning 03/08 which she took amoxicillin, AAA (4.6cm) admitted to on 03/28 with 3 week history of fevers and night sweats. Admitted d/t c/f endocarditis as advised by her Regulatory Intern and PCP. Admitti labs were significant for a leukocytosis of 11 with neutrophil predominance of 9, sodium of 132, CRP of 9.27, ESR of 56, procal WNL, AST /ALT normal Aphos 145, negative UA, and negative full respiratory biofire. 03/28 Blood cultures 4 sets obtained for which 7 /4 bottles GPC in chain - + BCID Streptococcus species. Notably, HENOK pos 1:160 (01/06/24) for which she saw Rheum. CTA- no PE , no consolidations or pathology in lungs, confirming AAA 4.6cm, Also notes cardiac lead in place, No pathologic findings of CT A/P. LOU shows retained pacemaker lead from SVC traversing the right atrium and TV. The lead is thickened with echodensity but no mobile abnl noted. Lead age possibly closer to 40 years. Pulmonic valve prosthesis suboptimal visualization but no PV regurgitation or stenosis and no definite veg. Patient initially started on Vancomycin +Gentamicin RECOMMENDATIONS -Agree with Ceftriaxone 2G IV daily, await sensi/italia of antibiotics -Repeat Blood cultures q24-48 hours to document clearance -Follow Cardiology recommendations re lead evaluation/extraction -Monitor for seeding to skin, joints, brain, lungs ID following closely with you Shona Guillermo MD Infectious Diseases [facility], [facility] Consultation Information This patient recommendation is based on a telemedicine consult request which was completed asynchronously through chart review and information provided by the primary physician. The patient was not seen or examined today. The evaluation is consultative in nature and all patient care and treatment decisions can either be accepted or rejected by the patient's primary hospital-based treating physician using their own independent medical judgment for their patient. Biztalk Developer contact information: Please call [facility] Call Center . (Phone Number For Physician Use Only) Time Spent Reviewing Chart: 31+ minutes History of Present Illness Reason for Consultation: Strep bacteremia c/f endocarditis Requesting Physician: Dr. Escoto Attending Physician: Steven Escoto MD History of Present Illness 43 year old F with PMH of a history of congenital heart disease with VSD repair, tricuspid valve repair, ROSS procedure, and distant history of endocarditis as a child, pulmonic valve replacement, retained pacemaker lead, h/o COVID in 11/2023, 2 recent prior UTIs, last dental cleaning 03/08 which she took amoxicillin, AAA (4.6cm) admitted to on 03/28 with 3 week history of fevers and night sweats. Admitted d/t c/f endocarditis as advised by her Regulatory Intern and PCP. Admitti labs were significant for a leukocytosis of 11 with neutrophil predominance of 9, sodium of 132, CRP of 9.27, ESR of 56, procal WNL, AST /ALT normal Aphos 145, negative UA, and negative full respiratory biofire. 03/28 Blood cultures 4 sets obtained for which 7 /4 bottles GPC in chain - + BCID Streptococcus species. Notably, HENOK pos 1:160 (01/06/24) for which she saw Rheum. CTA- no PE , no consolidations or pathology in lungs, confirming AAA 4.6cm, Also notes cardiac lead in place, No pathologic findings of CT A/P. LOU shows retained pacemaker lead from SVC traversing the right atrium and TV. The lead is thickened with echodensity but no mobile abnl noted. Lead age possibly closer to 40 years. Pulmonic valve prosthesis suboptimal visualization but no PV regurgitation or stenosis and no definite veg. Patient initially started on Vancomycin +Gentamicin Allergies Allergy/AdvReac Type Severity Reaction Status Date / Time clopidogrel [From Plavix] Allergy Severe Facial Verified 03/28/24 18:46 swelling topiramate [From Topamax] Allergy Mild Rash Verified 03/28/24 18:46 spironolactone AdvReac Intermediate Hypokalemia Verified 03/28/24 18:46 [From Aldactone] Home Medications Medication Instructions Recorded Confirmed Type dextroamphetamine-amphetamine 20 20 mg PO TID 06/15/20 03/28/24 History mg tablet (Adderall) adapalene 0.3 % topical gel 1 applic topical DAILY #45 grams 08/02/20 03/28/24 Rx benzoyl peroxide 5 % topical 1 applic topical DAILY #142 grams 08/02/20 03/28/24 Rx cleanser clindamycin phosphate 1 % topical 1 applic topical DAILY #30 mL 08/02/20 03/28/24 Rx solution clonazepam 2 mg tablet 2 - 3 mg PO HS PRN Anxiety 09/25/20 03/28/24 History aspirin 81 mg tablet,delayed 162 mg PO QAM 10/31/20 03/28/24 History release (Loreta Low Dose Aspirin) epinephrine 0.3 mg/0.3 mL 0.3 mg (0.3 mL) IM ONCE PRN 10/31/20 03/28/24 Rx injection, auto-injector allergic reaction #2 ea bupropion HCl 150 mg tablet,12 hr 300 mg PO QAM 03/05/21 03/28/24 History sustained-release (Wellbutrin SR) Saccharomyces boulardii 250 mg 500 mg (2 x 250 mg) PO BID #240 05/14/21 03/28/24 Rx capsule (Florastor) caps etonogestrel 0.12 mg-ethinyl 1 vag ring vaginal UD #3 ea 12/14/23 03/28/24 Rx estradiol 0.015 mg/24 hr vaginal ring amoxicillin 500 mg tablet 2,000 mg (4 x 500 mg) PO ONCE PRN 02/03/24 03/28/24 Rx dental procedure #4 tabs fluticasone propionate 50 2 spray intranasal DAILY 02/04/24 03/28/24 History mcg/actuation nasal spray,suspension (Allergy Relief (fluticasone)) losartan 25 mg tablet 25 mg PO QAM #90 tabs 03/14/24 03/28/24 Rx tirzepatide (weight loss) 10 10 mg subcut WK 03/28/24 03/28/24 History mg/0.5 mL subcutaneous pen injector (Zepbound) tirzepatide (weight loss) 7.5 7.5 mg subcut WK 03/28/24 03/28/24 History mg/0.5 mL subcutaneous pen injector (Zepbound) Patient History Medical History Thoracic ascending aortic aneurysm 4.7cm ascending thoracic aortic aneurysm under surveillance by cardiology 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 (10/2020) Pacemaker Aortic valve repair, complicated with complete heart block and PPM insertion (1984) > multiple removal/replacements with most recently Medtronic Micra AV pacing system (10/2020) Hx of thoracic outlet syndrome Surgical History S/P exploratory laparotomy (03/15/21) w/ excision of subcutaneous nodule Status post cardiac pacemaker procedure Aortic valve repair, complicated with complete heart block and PPM insertion (1984) > PPM generator extraction/ lead retained (2009) > Dual chamber Medtronic pacemaker placed (2012) > Removal of Medtronic pacemaker d/t thoracic outlet syndrome (2017) > Medtronic Micra AV pacing system (10/2020) History of nasal surgery + septoplasty History of cardiac cath x2 History of surgery I&D right groin area s/p cath (11/2020) > resolved S/P cardiac pacemaker procedure (10/2020) Medtronic Micra AV pacing system (10/2020) Status post placement of implantable loop recorder 2017 H/O aortic valve repair (1984) 1984 ([facility] [place]) S/P Ross procedure At age 16 S/P VSD repair (1984) S/P section x1 H/O umbilical hernia repair Incarcerated umbilical hernia repair S/P laparoscopic cholecystectomy Family History Father Diabetes Coronary heart disease Hypertension Mother Hypertension Aunt Breast cancer paternal aunt Other No family history of adverse response to anesthesia Denies family history of Ovarian cancer Prostate cancer Myocardial infarction Colorectal cancer Social History Smoking Status: Never smoker Tobacco Type: Cigarettes packs per day: 1; Second Hand Exposure: No; Do You Dip or Chew Tobacco: No; Tobacco Cessation Education Requested by Patient: No Hx Alcohol Use: Yes Alcohol type: beer and wine Alcohol Intake Frequency: Monthly or Less Alcohol Intake Frequency Comment: rare Hx Substance Use: No Preferred Language: Thai Communication Ability: Effective Visual Impairment: No Limitations Hearing Ability: Normal Meat Stocker Required: No Beliefs That Will Affect Care: None marital status: Current Living Situation: Significant Other Current Living Situation Comment: LIVES WITH SON current occupational status: employed 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 How many Children do You have: 1 Other Information That Helps Us Care for You: No Feels Safe at Home: Yes Safety Concerns: Feels Safe At This Time Diet: regular caffeine: Yes during the past year weight has: remained stable Dental Care, Regularly: Yes Physical Activity Frequency: Other Seatbelt Use: always Sunscreen Use: Yes Assistive Devices: None Results & Data Vital Signs (Past 12 Hours) Vital Signs Temp Pulse Pulse Resp BP Pulse Ox O2 Del Method 03/29/24 15:00 81 03/29/24 13:59 36.7 C 84 18 112/63 100 03/29/24 10:11 81 15 106/69 100 Room Air 03/29/24 09:50 83 20 107/70 99 Room Air 03/29/24 09:33 36.8 C 79 18 99/58 L 97 Room Air 03/29/24 09:11 80 18 94/64 L 96 Room Air 03/29/24 08:56 81 18 98/55 L 96 Room Air 03/29/24 08:41 86 18 94/54 L 97 Room Air 03/29/24 08:00 85 03/29/24 07:30 36.8 C 78 16 101/61 99 Room Air Laboratory Results Short CBC 03/28/24 03/29/24 Range/Units 16:21 05:41 WBC 11.10 H 9.21 (4.8-10.8) K/ul Hgb 12.1 10.4 L (12.0-16.0) g/dl Hct 34.7 L 30.8 L (37.0-47.0) % Plt Count 304 245 (130-400) K/uL BMP 03/28/24 03/29/24 16:21 05:41 Sodium 132 L 134 L Potassium 3.8 4.2 Chloride 97 L 105 Carbon Dioxide 27 22 BUN 7 7 Creatinine 0.90 0.75 Glucose 78 98 Calcium 9.8 8.5 L Liver Function 03/28/24 03/29/24 Range/Units 16:21 05:41 Total Bilirubin 0.4 0.4 (0.2-1.0) mg/dl AST 24 14 (13-39) U/L ALT 25 16 (7-52) U/L Alkaline Phosphatase 145 H 104 (34-104) U/L Albumin 4.0 3.2 L (3.4-5.0) gm/dl Urine 03/28/24 Range/Units 18:37 Urine Color Yellow Urine Appearance Clear (Clear) Urine pH 7.5 (4.5-7.5) Ur Specific [place] 1.008 (1.000-1.030) Urine Protein Negative (Negative) Urine Glucose (UA) Negative (Negative) Diagnostic Findings Chest X-Ray 03/28/24 16:11 SINGLE VIEW CHEST CLINICAL HISTORY: Sepsis. FINDINGS: A PA chest radiograph is compared to study dated 11/05/2020 and correlated with chest CT performed the same day 03/28/2024. The patient is status post midline sternotomy and cardiac valve surgery. A pacemaker lead is unchanged in position appear The cardiomediastinal silhouette is top normal for projection. The lungs and pleural spaces are clear. No pneumothorax is seen. The bony thorax is grossly intact. An electronic device projects over the left lower chest. IMPRESSION: The lungs are clear. ACT 112: Negative or not required by law. Electronically signed by: Stephane Wiseman M.D. 03/28/2024 4:37 PM Abdomen/Pelvis CT 03/28/24 18:14 Exam(s): CT ABDOMEN + PELVIS With Contrast IV Amt: 90 ml optiray 320 EXAM: CT Abdomen and Pelvis With Intravenous Contrast CLINICAL HISTORY: Reason for exam: lower abd pain, fever. TECHNIQUE: Axial computed tomography images of the abdomen and pelvis with intravenous contrast. CTDI is 13.75 mGy and DLP is 767.62 mGy-cm. Automated exposure control was utilized for the study. A dose lowering technique was utilized adhering to the principles of ALARA. CONTRAST: Patient received 90 ml optiray 320 of IV contrast COMPARISON: CT abdomen pelvis 11/12/2020. FINDINGS: Lung bases: Clear. Liver: Unremarkable. Gallbladder and bile ducts: Cholecystectomy, stable. No ductal dilation. Pancreas: No ductal dilation. Spleen: Unremarkable. Adrenals: Unremarkable. Kidneys and ureters: No pyelonephritis or hydronephrosis. Stomach and bowel: Severe fecal loading of the colon. No diverticulosis or diverticulitis. No significant interval change. No obstruction. Appendix: Intraperitoneal space: No free air or fluid. Bones/joints: No acute fracture. Soft tissues: Unremarkable. Vasculature: No aortic aneurysm. Lymph nodes: No enlarged lymph nodes. Bladder: No stones. Reproductive: Unremarkable for patient's age and this technique, with limited evaluation of the adnexa due to adjacent unopacified small bowel. IMPRESSION: 1. No acute intra-abdominal or intrapelvic abnormality, and no significant interval change. 2. Normal kidneys and appendix. Electronically signed by: Elisa Estrada M.D. 03/28/24 19:[address] 03/28/24 18:14 Exam(s): CT HEAD Without Contrast EXAM: CT Head Without Intravenous Contrast CLINICAL HISTORY: Reason for exam: LLOYD, fever. TECHNIQUE: Axial computed tomography images of the head/brain without intravenous contrast. CTDI is 37.01 mGy and DLP is 547.75 mGy-cm. Automated exposure control was utilized for the study. A dose lowering technique was utilized adhering to the principles of ALARA. COMPARISON: Head CT 12/28/18. FINDINGS: Brain: No mass effect or acute infarct. No acute hemorrhage. Ventricles: No hydrocephalus or midline shift. Bones/joints: No skull fracture. Soft tissues: No scalp hematoma. Visualized Sinuses: Clear. Mastoid air cells: No mastoid effusion. IMPRESSION: 1. No acute intracranial abnormality, and no change. Electronically signed by: Elisa Estrada M.D. 03/28/24 19:20 PM Medications Administered Current Inpatient Medications Acetaminophen (Acetaminophen 325 Mg Tab) 650 mg PO Q6H PRN PRN Reason: pain(1-4),headache,fever Stop: 04/27/24 20:44 Last Admin: 03/29/24 03:44 Dose: 650 mg Amphetamine/Dextroamphetamine (Dextroamphetamine/Amphetamine Ir 10 Mg Tab) 20 mg PO TID@0600,1100,1600 [facility] Stop: 04/12/24 05:59 Last Admin: 03/29/24 16:02 Dose: Not Given Aspirin (Aspirin 81 Mg Ectab) [facility] [place] Stop: 04/28/24 08:59 Last Admin: 03/29/24 09:40 Dose: 162 mg Bupropion HCl (Bupropion Xl 300 Mg Tabcr) 300 mg PO QAM [facility] Stop: 04/28/24 08:59 Last Admin: 03/29/24 09:39 Dose: 300 mg Clonazepam (Clonazepam 1 Mg Tab) 3 mg PO HS PRN PRN Reason: Anxiety Stop: 04/27/24 21:55 Ceftriaxone Sodium (Rocephin) 2,000 mg in 50 mls @ 100 mls/hr IV Q24H [facility] Stop: 05/10/24 07:59 Last Infusion: 03/29/24 10:46 Dose: Infused Losartan Potassium (Losartan Potassium 25 Mg Tab) 25 mg PO QAM [facility] Stop: 04/28/24 08:59 Last Admin: 03/29/24 10:07 Dose: 25 mg Ondansetron HCl (Ondansetron Inj 2 Mg/Ml 2 Ml Vial) 4 mg IV Q4H PRN PRN Reason: Nausea Stop: 04/27/24 20:35
--- NOTE | 2024-03-29 19:20 | Billing Data ---
Date of Service March 29, 2024 Coding Level of Care Code 44450 INT INP/OBS CARE
[2024-03-30 06:18] LABS: Basophils # (auto) 0.05 K/uL (0.00-0.20); Basophils % (auto) 0.6 %; Eosinophils # (auto) 0.18 K/uL (0.00-0.50); Eosinophils % (auto) 2.1 %; Hematocrit (blood only) 30.9 % (37.0-47.0); Hemoglobin 10.7 g/dl (12.0-16.0); Immature Granulocytes # (auto) 0.04 K/uL (0.01-0.20); Immature Granulocytes % (auto) 0.5 %; Lymphocytes # (auto) 1.11 K/uL (1.20-3.40); Mean Corpuscular Hemoglobin 30.6 pg (25.0-34.0); Mean Corpuscular Hgb Conc 34.6 g/dL (32.0-36.0); Mean Corpuscular Volume 88.3 fL (80.0-100.0); Mean Platelet Volume 9.9 fL (9.4-12.4); Monocytes # (auto) 0.55 K/uL (0.11-0.59); Monocytes % (auto) 6.4 %; Neutrophils # (auto) 6.63 K/uL (1.40-6.50); Neutrophils % (auto) 77.4 %; Platelet Count 261 K/uL (130-400); RDW Coefficient of Variation 11.4 % (11.5-14.5); RDW Standard Deviation 36.2 fL (36.4-46.3); White Blood Count 8.56 K/ul (4.8-10.8)
[2024-03-30 06:24] LABS: Albumin Level 3.4 gm/dl (3.4-5.0); BUN Creatinine Ratio 15.5 (10-20); Bilirubin,Total 0.3 mg/dl (0.2-1.0); Calcium 9.3 mg/dl (8.6-10.3); Creatinine Clr Calc Pharmacy 110.7 ml/min; Est GFR (African American) 121.8 ml/min; Est GFR (Non-African American) 105.1 ml/min; Globulin 3.3 gm/dl (2.5-4.0); Magnesium 1.7 mg/dl (1.7-2.4); Potassium 4.2 mmol/L (3.5-5.1); Total Protein 6.7 gm/dl (6.0-8.3)
[2024-03-30 06:30] LABS: INR 0.9 (0.9-1.1); Prothrombin Time 10.3 Seconds (9.0-12.0)
[2024-03-30] MEDS: KETOROLAC TROMETHAMINE 15 MG/ML VIAL IV ONE (07:17)
--- NOTE | 2024-03-30 08:40 | Infectious Disease Progress Nt ---
Date of Service March 30, 2024 Assessment & Plan (1) History of endocarditis: (2) History of aortic valve disease: Plan #Streptococcal bacteremia #CHD s/p VSD, TV repair #Pulmonic valve replacement #Retained pacemaker lead with echodensity based on LOU (CIED lead infection) #wireless jennifer pacemaker MICRO 03/28 Blood cultures 7 / 8 bottles GPC in chain, BCID streptococcus 43 year old F with PMH of a history of congenital heart disease with VSD repair, tricuspid valve repair, ROSS procedure, and distant history of endocarditis as a child, pulmonic valve replacement, retained pacemaker lead, h/o COVID in 11/2023, 2 recent prior UTIs, last dental cleaning 03/08 which she took amoxicillin, AAA (4.6cm) admitted to on 03/28 with 3 week history of fevers and night sweats. Patient saw teledoc for UTI prior to admission, treated with bactrim x 7 days, then saw her PCP who recommended go to ER - Initial pacemaker at 3 years old until she was in her 30s. Lead removal was attempted but couldnt easily removed so was retained. Wireless pacemaker in place - Loop recorder Admitted d/t c/f endocarditis as advised by her Food Processing Scientist and PCP. Admitti labs were significant for a leukocytosis of 11 with neutrophil predominance of 9, sodium of 132, CRP of 9.27, ESR of 56, procal WNL, AST /ALT normal Aphos 145, negative UA, and negative full respiratory biofire. 03/28 Blood cultures 4 sets obtained for which 7 /4 bottles GPC in chain - + BCID Streptococcus species. Notably, HENOK pos 1:160 (01/06/24) for which she saw Rheum. CTA- no PE , no consolidations or pathology in lungs, confirming AAA 4.6cm, Also notes cardiac lead in place, No pathologic findings of CT A/P. LOU shows retained pacemaker lead from SVC traversing the right atrium and TV. The lead is thickened with echodensity but no mobile abnl noted. Lead age possibly closer to 40 years. Pulmonic valve prosthesis suboptimal visualization but no PV regurgitation or stenosis and no definite veg. Patient initially started on Vancomycin +Gentamicin RECOMMENDATIONS -Agree with Ceftriaxone 2G IV daily, await sensi/italia of antibiotics -Repeat Blood cultures q24-48 hours to document clearance, 5/14 blood cultures in lab -Follow Cardiology recommendations re lead evaluation/extraction -D/W Cardiology wireless pacemaker, if visualized on LOU -Monitor for seeding to skin, joints, brain, lungs ID following closely with you Shona Guillermo MD Infectious Diseases [facility], [facility] Admission and Anticipated Discharge Date Admission Date: March 28, 2024 Subjective Subsequent visit was provided via telemedicine using two-way real-time interactive telecommunication between the patient and the telemedicine provider. For the duration of the visit, the provider was performing the assessment from a different facility than the patient. This includesuse of bluetooth stethoscope forauscultationperformed by the telepresenter that the telemedicine provider can hear if described in the physical exam. Cloth Mercerizing Supervisor contact information: Please call [facility] Call Center [phone]. (Phone Number For Physician Use Only) After establishing a telemedicine visit, patient was: Patient was verified with two unique identifiers, Patient/authorized rep acknowledged consent and understanding and Gave permission to continue telehealth session Time Spent with Patient: Subsequent => 35 min Patient feeling better No current joint pains Has Left sided truncal pain along lateral rib that has become increasingly painful Physical Exam Physical Exam: NAD L lateral chest along rib cage no open lesions or sores No skin lesions PIV- leaking Results & Data Vital Signs (Past 12 Hours) Vital Signs Temp Pulse Pulse Resp BP Pulse Ox O2 Del Method 03/30/24 02:45 36.7 C 82 18 107/66 97 Room Air 03/29/24 23:00 36.6 C 85 18 103/62 98 Room Air 03/29/24 22:12 90 Medications Administered Current Inpatient Medications Acetaminophen (Acetaminophen 325 Mg Tab) 650 mg PO Q6H PRN PRN Reason: pain(1-4),headache,fever Stop: 04/27/24 20:44 Last Admin: 03/30/24 05:58 Dose: 650 mg Amphetamine/Dextroamphetamine (Dextroamphetamine/Amphetamine Ir 10 Mg Tab) 20 mg PO TID@0600,1100,1600 [facility] Stop: 04/12/24 05:59 Last Admin: 03/30/24 05:58 Dose: 20 mg Aspirin (Aspirin 81 Mg Ectab) 162 mg PO QAM [facility] Stop: 04/28/24 08:59 Last Admin: 03/30/24 08:48 Dose: 162 mg Bupropion HCl (Bupropion Xl 300 Mg Tabcr) [facility] Stop: 04/28/24 08:59 Last Admin: 03/30/24 08:48 Dose: 300 mg Clonazepam (Clonazepam 1 Mg Tab) 3 mg PO HS PRN PRN Reason: Anxiety Stop: 04/27/24 21:55 Ceftriaxone Sodium (Rocephin) 2,000 mg in 50 mls @ 100 mls/hr IV Q24H [facility] Stop: 05/10/24 07:59 Last Infusion: 03/30/24 09:36 Dose: Infused Losartan Potassium (Losartan Potassium 25 Mg Tab) 25 mg PO QAM [facility] Stop: 04/28/24 08:59 Last Admin: 03/30/24 08:48 Dose: 25 mg Ondansetron HCl (Ondansetron Inj 2 Mg/Ml 2 Ml Vial) 4 mg IV Q4H PRN PRN Reason: Nausea Stop: 04/27/24 20:35
--- NOTE | 2024-03-30 09:58 | XRay Report ---
XR ribs LT min 2V CLINICAL HISTORY: attention pain mid ax ilne around 4-5, bactermic TECHNIQUE: 3 views of the right ribs were obtained. Single frontal view of the chest was obtained. Comparison: Comparison is made to chest radiograph 03/28/2024 FINDINGS: No acute fractures are seen. The chest wall and soft tissues are normal. Vascular stent and loop recorder are seen. The cardiomediastinal silhouette is normal. The lungs are clear. No evidence of pleural effusion or pneumothorax. IMPRESSION: No evidence of acute fracture or other acute abnormalities in the visualized portions of the chest. ACT 112: Negative or not required by law. Electronically signed by: Vicente Bradley M.D. 03/30/2024 9:57 AM
--- NOTE | 2024-03-30 11:38 | Cardiology Progress Note ---
Date of Service March 30, 2024 Assessment & Plan (1) Acute bacterial endocarditis: Plan: * 02/17 initial blood cultures obtained on 03/28/2024 prior to antibiotics yielded gram-positive cocci in chains with PCR consistent with Streptococcus. * Patient with recent dental cleaning about 6 weeks ago, utilized amoxicillin prophylaxis. * No skin lesions observed. Did step on a nail/staple while removing carpet in her home. * Transesophageal echocardiogram without vegetation. The prosthetic pulmonic valve was suboptimally visualized, but no gross evidence of vegetation. 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 It is unclear whether the lead was revised at the time of her surgical Ross procedure in 1996, but the patient had an ongoing intra-abdominal pacemaker generator until it was removed by CT surgery [place] [facility] [place]. I reviewed the operative report by Dr. Garduno in 2009, right ventricular lead extraction attempted at that time but was not successful. Per review of the transesophageal echocardiogram data, the lead appears to be adherent with the tricuspid valve apparatus. * Case reviewed with electrophysiology at [facility] by phone yesterday, and it was felt that the lead could not be extracted endovascularly. * Recommend ongoing antibiotics, likely 6 weeks of ceftriaxone pending identification and sensitivities of the initial cultures. * I left a message with Dr Layne with who the patient follows with at the adult congenital heart disease clinic at [facility] yesterday, and called back again today and spoke to her unit receptionist. Will plan to coordinate care with Dr Layne. Case discussed by phone with Dr Anderson for the purpose of coordination of care. Admission and Anticipated Discharge Date Admission Date: March 28, 2024 Subjective Patient seen in cardiology follow up. Slept well overnight. Subjective fevers / night sweats improved. Most recent fever was 37.6 on 03/29 at 16:59 and afebrile in the meantime. Physical Exam Constitutional: WD/WN, vitals as above Eyes: PERRL, conjunctivae normal, anicteric sclerae Respiratory: normal respiratory effort, lungs clear to auscultation Cardiovascular: Rate/Rhythm: regular rate Heart Sounds: normal S1, normal S2 and + murmur (1/6 SM ) Extremities: no edema Gastrointestinal (Abdomen): normal bowel sounds, soft, nontender, no hepatosplenomegaly Skin: no rashes, warm and dry Neurologic: PERRL, EOMI, accommodation nl, no face palsy, no dysarthria Results & Data Vital Signs (Past 12 Hours) Vital Signs Temp Pulse Resp BP Pulse Ox O2 Del Method 03/30/24 11:08 36.9 C 83 18 109/71 98 Room Air 03/30/24 08:00 36.7 C 85 18 109/69 99 Room Air 03/30/24 02:45 36.7 C 82 18 107/66 97 Room Air Laboratory Results Cardiac Enzymes 03/30/24 Range/Units 05:45 AST 13 (13-39) U/L Coagulation 03/30/24 Range/Units 05:45 PT 10.3 (9.0-12.0) Seconds CBC 03/30/24 Range/Units 05:45 WBC 8.56 (4.8-10.8) K/ul RBC 3.50 L (4.20-5.40) M/uL Hgb 10.7 L (12.0-16.0) g/dl Hct 30.9 L (37.0-47.0) % Plt Count 261 (130-400) K/uL Neut # (Auto) 6.63 H (1.40-6.50) K/uL Lymph # (Auto) 1.11 L (1.20-3.40) K/uL [place] # (Auto) 0.55 (0.11-0.59) K/uL Eos # (Auto) 0.18 (0.00-0.50) K/uL Baso # (Auto) 0.05 (0.00-0.20) K/uL Comprehensive Metabolic Panel 03/30/24 Range/Units 05:45 Sodium 134 L (136-145) mmol/L Potassium 4.2 (3.5-5.1) mmol/L Chloride 101 (98-107) mmol/L Carbon Dioxide 25 (21-32) mmol/L BUN 11 (6-23) mg/dl Creatinine 0.71 (0.6-1.2) mg/dl Glucose 97 (70-99(Fasting)) mg/dl Calcium 9.3 (8.6-10.3) mg/dl AST 13 (13-39) U/L ALT 16 (7-52) U/L Alkaline Phosphatase 102 (34-104) U/L Total Protein 6.7 (6.0-8.3) gm/dl Albumin 3.4 (3.4-5.0) gm/dl Intake and Output 03/29/24 03/30/24 03/30/24 22:59 06:59 14:59 Intake Total 50 / 50 Balance 50 / 50 Intake: IV 50 / 50 cefTRIAXone SODIUM 2,000 mg In 50 / 50 50 ml @ 100 mls/hr IV Q24H [facility] Rx#:[id number] Other: # Unmeasured Voids 1 1 Weight 77.4 kg Weight Measurement Method Built in [facility]
[2024-03-30] MEDS: CELECOXIB 100 MG CAP PO ONE (14:30)
[2024-03-30] MEDS: ACETAMINOPHEN 325 MG TAB PO SCH (17:45)
--- NOTE | 2024-03-30 22:25 | Hospitalist Progress Note ---
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 Strep species suggested by preliminary PCR Presented recurrent fevers, generalized weakness, and WILSON over the past 2 weeks Patient on 162 mg of aspirin for her valve prophylaxis. She cannot tolerate Plavix stable and non-toxic appearing no defined source on CTA chest, Ct abd/pelvis w/IV con, CT head, and TTE which have been unremarkable ua with some blood small leuk esterace - elevated ESR and CRP - respiratory biofire have been negative Infectious disease consultation -Agree with Ceftriaxone 2G IV daily, await sensi/italia of antibiotics -Repeat Blood cultures q24-48 hours to document clearance -Follow Cardiology recommendations re lead evaluation/extraction -Monitor for seeding to skin, joints, brain, lungs Patient did have dental cleaning within the last few weeks she did take appropriate prophylaxis prior to the cleaning patient also did have some puncture wounds doing home remodeling none of them appear to be overtly infected Shady Nunez is consulted health educator, and he has been in touch both with [facility] and [facility] who has been involved in the patient's cardiac care in the past. Certainly will need to coordinate outpatient infectious disease for after the patient is discharged obtained repeat cultures on 03/30 awaiting 48 jours preliminary read before placing picc line. for her pain, placed her on celecoxib, tylenol qid, lidocaine oatch. (2) Panic disorder: Plan: -Continue Wellbutrin and Clonazepam Admission and Anticipated Discharge Date Admission Date: March 28, 2024 Subjective 43 yo female reports having pain in her left side of her lower chest. She is asking for more frequent pain medcine, though she is not asking for opiates. She states that the ketorolac hekped. Review of Systems Review of Systems: All systems reviewed & are unremarkable except as noted in HPI & below Physical Exam Physical Exam: Awake alert appropriate. As mentioned no peripheral stigmata of endocarditis Card exam is regular without murmurs Does have tenderness along her left rib cage approximately may be the fourth or fifth rib in the midaxillary line there is no skin changes over this area but will do rib x-rays. Patient also has a loop recorder in her left chest which is uncomfortable to her but this has been ongoing for some time. Results & Data Results & Data Vital Signs (Past 12 Hours) Vital Signs Temp Pulse Pulse Resp BP Pulse Ox O2 Del Method 03/30/24 19:00 37.0 C 88 18 103/57 L 99 Room Air 03/30/24 15:35 36.9 C 81 18 104/67 100 Room Air 03/30/24 15:00 79 03/30/24 11:08 36.9 C 83 18 109/71 98 Room Air PG Care Time/CCT Total # of Minutes Spent Total Time Spent with Patient: Total time spent is greater than 50% in coordination of care (as documented) at patient's floor/unit and/or counseling patient: Coding Level of Care Code 28244 SUB INP/OBS CARE 3/50MIN Diagnoses Prolonged fever R50.9 Panic disorder F41.0
[2024-03-31 06:18] LABS: Basophils # (auto) 0.06 K/uL (0.00-0.20); Basophils % (auto) 0.7 %; Eosinophils # (auto) 0.19 K/uL (0.00-0.50); Eosinophils % (auto) 2.2 %; Hematocrit (blood only) 33.3 % (37.0-47.0); Hemoglobin 11.6 g/dl (12.0-16.0); Immature Granulocytes % (auto) 1.2 %; Lymphocytes # (auto) 1.34 K/uL (1.20-3.40); Lymphocytes % (auto) 15.9 %; Mean Corpuscular Hemoglobin 30.9 pg (25.0-34.0); Mean Corpuscular Hgb Conc 34.8 g/dL (32.0-36.0); Mean Corpuscular Volume 88.6 fL (80.0-100.0); Mean Platelet Volume 9.8 fL (9.4-12.4); Monocytes # (auto) 0.56 K/uL (0.11-0.59); Monocytes % (auto) 6.6 %; Neutrophils % (auto) 73.4 %; Platelet Count 265 K/uL (130-400); RDW Coefficient of Variation 11.4 % (11.5-14.5); RDW Standard Deviation 36.6 fL (36.4-46.3); Red Blood Count 3.76 M/uL (4.20-5.40); White Blood Count 8.45 K/ul (4.8-10.8)
[2024-03-31 06:39] LABS: INR 0.9 (0.9-1.1); Prothrombin Time 10.3 Seconds (9.0-12.0)
[2024-03-31 06:42] LABS: Albumin Level 3.5 gm/dl (3.4-5.0); BUN Creatinine Ratio 13.9 (10-20); Bilirubin,Total 0.3 mg/dl (0.2-1.0); Calcium 9.6 mg/dl (8.6-10.3); Creatinine Clr Calc Pharmacy 99.5 ml/min; Est GFR (Non-African American) 92.3 ml/min; Globulin 3.5 gm/dl (2.5-4.0); Magnesium 1.7 mg/dl (1.7-2.4); Potassium 4.5 mmol/L (3.5-5.1)
[2024-03-31] MEDS: LIDOCAINE 5% 1 PATCH TD SCH (08:02)
[2024-03-31] MEDS: CELECOXIB 100 MG CAP PO SCH (08:47)
--- NOTE | 2024-03-31 09:50 | Infectious Disease Progress Nt ---
Date of Service March 31, 2024 Assessment & Plan (1) History of endocarditis: (2) History of aortic valve disease: Plan #Streptococcal bacteremia #CHD s/p VSD, TV repair #Pulmonic valve replacement #Retained pacemaker lead with echodensity based on LOU (CIED lead infection) #wireless jennifer pacemaker MICRO 03/28 Blood cultures 7 / 8 bottles GPC in chain, BCID streptococcus 43 year old F with PMH of a history of congenital heart disease with VSD repair, tricuspid valve repair, ROSS procedure, and distant history of endocarditis as a child, pulmonic valve replacement, retained pacemaker lead, h/o COVID in 11/2023, 2 recent prior UTIs, last dental cleaning 03/08 which she took amoxicillin, AAA (4.6cm) admitted to on 03/28 with 3 week history of fevers and night sweats. Patient saw teledoc for UTI prior to admission, treated with bactrim x 7 days, then saw her PCP who recommended go to ER - Initial pacemaker at 3 years old until she was in her 30s. Lead removal was attempted but couldnt easily removed so was retained. Wireless pacemaker in place - Loop recorder Admitted d/t c/f endocarditis as advised by her Special Systems Technician and PCP. Admitti labs were significant for a leukocytosis of 11 with neutrophil predominance of 9, sodium of 132, CRP of 9.27, ESR of 56, procal WNL, AST /ALT normal Aphos 145, negative UA, and negative full respiratory biofire. 03/28 Blood cultures 4 sets obtained for which 7 /4 bottles GPC in chain - + BCID Streptococcus species. Notably, HENOK pos 1:160 (01/06/24) for which she saw Rheum. CTA- no PE , no consolidations or pathology in lungs, confirming AAA 4.6cm, Also notes cardiac lead in place, No pathologic findings of CT A/P. LOU shows retained pacemaker lead from SVC traversing the right atrium and TV. The lead is thickened with echodensity but no mobile abnl noted. Lead age possibly closer to 40 years. Pulmonic valve prosthesis suboptimal visualization but no PV regurgitation or stenosis and no definite veg. Patient initially started on Vancomycin +Gentamicin, strep species identified on BCID, abx narrowed to Ceftriaxone Discussion: Patient with extensive cardiac history to include CHD with prior pacemaker placement s/p removal with retained lead that is likely ~40 yrs old. Although she did receive dental ppx, symptoms occured soon after cleaning. Other possible risks - she stepped on a tack but no development of cellulitis. Also had UTI which was not cultured. I discussed LOU findings with Cardiology and echodensity on lead can be secondary to tissue scarring vs infection. Discussed prolonged antibiotics x 6 weeks, followed by oral suppressive antibiotics until lead can be further investigated RECOMMENDATIONS -CWCeftriaxone 2G IV daily, await sensi/italia of antibiotics -Repeat Blood cultures q24-48 hours to document clearance, 03/29 blood cultures in lab -Monitor for seeding to skin, joints, brain, lungs -Anticipating 6 weeks of iv therapy (minimum) ID following closely with you Shona Guillermo MD Infectious Diseases [facility], [facility] Admission and Anticipated Discharge Date Admission Date: March 28, 2024 Subjective This patient recommendation is based on a telemedicine consult request which was completed asynchronously through chart review and information provided by the primary physician. The patient was not seen or examined today. The evaluation is consultative in nature and all patient care and treatment decisions can either be accepted or rejected by the patient's primary hospital-based treating physician using their own independent medical judgment for their patient. Time Spent Reviewing Chart: 31+ minutes Results & Data Vital Signs (Past 12 Hours) Vital Signs Temp Pulse Pulse Resp BP BP Pulse Ox 03/31/24 08:49 94 H 100/72 03/31/24 08:31 77 03/31/24 07:00 36.5 C 78 19 97/63 L 98 03/31/24 03:00 36.5 C 81 18 107/70 96 03/30/24 23:00 36.4 C L 86 18 104/71 100 03/30/24 21:58 92 H O2 Del Method 03/31/24 08:49 03/31/24 08:31 03/31/24 07:00 Room Air 03/31/24 03:00 Room Air 03/30/24 23:00 Room Air 03/30/24 21:58 Laboratory Results Short CBC 03/31/24 Range/Units 05:44 WBC 8.45 (4.8-10.8) K/ul Hgb 11.6 L (12.0-16.0) g/dl Hct 33.3 L (37.0-47.0) % Plt Count 265 (130-400) K/uL BMP 03/31/24 05:44 Sodium 135 L Potassium 4.5 Chloride 101 Carbon Dioxide 28 BUN 11 Creatinine 0.79 Glucose 94 Calcium 9.6 Liver Function 03/31/24 Range/Units 05:44 Total Bilirubin 0.3 (0.2-1.0) mg/dl AST 19 (13-39) U/L ALT 20 (7-52) U/L Alkaline Phosphatase 107 H (34-104) U/L Albumin 3.5 (3.4-5.0) gm/dl Microbiology 03/29/24 19:33 Blood Aerobic Blood Culture - Preliminary No growth in Aerobic bottle after 24 hours. 03/29/24 19:33 Blood Anaerobic Blood Culture - Preliminary No growth in Anaerobic bottle after 24 hours. 03/29/24 19:33 Blood Aerobic Blood Culture - Preliminary No growth in Aerobic bottle after 24 hours. 03/29/24 19:33 Blood Anaerobic Blood Culture - Preliminary No growth in Anaerobic bottle after 24 hours. 03/28/24 16:21 Blood Aerobic Blood Culture - Preliminary Alpha strep not S.pne/enteroco 03/28/24 16:21 Blood Anaerobic Blood Culture - Preliminary Alpha strep not S.pne/enteroco 03/28/24 18:18 Blood Aerobic Blood Culture - Preliminary Alpha strep not S.pne/enteroco 03/28/24 18:18 Blood Anaerobic Blood Culture - Preliminary Alpha strep not S.pne/enteroco Medications Administered Current Inpatient Medications Acetaminophen (Acetaminophen 325 Mg Tab) 650 mg PO QID [facility] Stop: 04/29/24 16:59 Last Admin: 03/31/24 08:02 Dose: Not Given Amphetamine/Dextroamphetamine (Dextroamphetamine/Amphetamine Ir 10 Mg Tab) 20 mg PO TID@0600,1100,1600 [facility] Stop: 04/12/24 05:59 Last Admin: 03/31/24 06:08 Dose: 20 mg Aspirin (Aspirin 81 Mg Ectab) 162 mg PO QAM [facility] Stop: 04/28/24 08:59 Last Admin: 03/31/24 08:07 Dose: 162 mg Bupropion HCl (Bupropion Xl 300 Mg Tabcr) 300 mg PO QAM [facility] Stop: 04/28/24 08:59 Last Admin: 03/31/24 08:07 Dose: 300 mg Celecoxib (Celecoxib 100 Mg Cap) 100 mg PO BID [facility] Stop: 04/30/24 08:59 Last Admin: 03/31/24 08:47 Dose: 100 mg Clonazepam (Clonazepam 1 Mg Tab) 3 mg PO HS PRN PRN Reason: Anxiety Stop: 04/27/24 21:55 Ceftriaxone Sodium (Rocephin) 2,000 mg in 50 mls @ 100 mls/hr IV Q24H [facility] Stop: 05/10/24 07:59 Last Infusion: 03/31/24 08:47 Dose: Infused Lidocaine (Lidocaine 5% 1 Patch) 1 patch TD QAM [facility] Stop: 04/30/24 08:59 Last Admin: 03/31/24 08:02 Dose: Not Given Losartan Potassium (Losartan Potassium 25 Mg Tab) 25 mg PO QAM [facility] Stop: 04/28/24 08:59 Last Admin: 03/31/24 08:50 Dose: 25 mg Miscellaneous (Remove Lidoderm Patch) 1 each N/A DAILY@2100 [facility] Stop: 04/29/24 20:59 Last Admin: 03/30/24 20:19 Dose: Not Given Ondansetron HCl (Ondansetron Inj 2 Mg/Ml 2 Ml Vial) 4 mg IV Q4H PRN PRN Reason: Nausea Stop: 04/27/24 20:35
--- NOTE | 2024-03-31 13:04 | Cardiology Progress Note ---
Date of Service March 31, 2024 Assessment & Plan (1) Acute bacterial endocarditis: Plan: * 02/17 initial blood cultures obtained on 03/28/2024 prior to antibiotics yielded Alpha streptococcus (not S.Pne/enterococcus)- final ED an sensitivities pending. * Cultures obtained on 03/29, and 03/30 without growth thus far * Patient with recent dental cleaning about 6 weeks ago, utilized amoxicillin prophylaxis. * No skin lesions observed. Did step on a nail/staple while removing carpet in her home. * Transesophageal echocardiogram without vegetation. The prosthetic pulmonic valve was suboptimally visualized, but no gross evidence of vegetation. 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 It is unclear whether the lead was revised at the time of her surgical Ross procedure in 1996, but the patient had an ongoing intra-abdominal pacemaker generator until it was removed by CT surgery at [facility] in 2009. I reviewed the operative report by Dr. Garduno in 2009, right ventricular lead extraction attempted at that time but was not successful. Per review of the transesophageal echocardiogram data, the lead appears to be adherent with the tricuspid valve apparatus. * Case reviewed with electrophysiology at [facility] by phone , and it was felt that the lead could not be extracted endovascularly. Julieta to Dr Guillermo of [facility] telemed ID on 03/30/24 and reviewed details of case history and LOU. * Recommend ongoing antibiotics, likely 6 weeks of ceftriaxone pending identification and sensitivities of the initial cultures. * I left a message with Dr Layne with who the patient follows with at the adult congenital heart disease clinic at [facility] yesterday, await call back to coordinate care. Admission and Anticipated Discharge Date Admission Date: March 28, 2024 Subjective Pt seen in cardiology follow up. [place] well overnight. Last documented fever was on 03/29/24 at 16:59. Telemetry reveals SR in the 70s to 90s . Physical Exam Constitutional: WD/WN, vitals as above + ill appearing; no acute distress Eyes: PERRL, conjunctivae normal, anicteric sclerae Respiratory: normal respiratory effort, lungs clear to auscultation + cough Auscultation: no crackles, no rales, no rhonchi and no wheezes Cardiovascular: Rate/Rhythm: regular rate Heart Sounds: normal S1, normal S2 and + murmur (1/6 SM ) Vessels: no JVD Extremities: no edema Gastrointestinal (Abdomen): normal bowel sounds, soft, nontender, no hepatosplenomegaly Musculoskeletal: no cyanosis or clubbing, extremities motor strength 5/5 Skin: no rashes, warm and dry Neurologic: PERRL, EOMI, accommodation nl, no face palsy, no dysarthria Results & Data Vital Signs (Past 12 Hours) Vital Signs Temp Pulse Pulse Resp BP BP Pulse Ox 03/31/24 11:00 36.6 C 79 20 107/68 98 03/31/24 08:49 94 H 100/72 03/31/24 08:31 77 03/31/24 07:00 36.5 C 78 19 97/63 L 98 03/31/24 03:00 36.5 C 81 18 107/70 96 O2 Del Method 03/31/24 11:00 Room Air 03/31/24 08:49 03/31/24 08:31 03/31/24 07:00 Room Air 03/31/24 03:00 Room Air Laboratory Results Cardiac Enzymes 03/31/24 Range/Units 05:44 AST 19 (13-39) U/L Coagulation 03/31/24 Range/Units 05:44 PT 10.3 (9.0-12.0) Seconds CBC 03/31/24 Range/Units 05:44 WBC 8.45 (4.8-10.8) K/ul RBC 3.76 L (4.20-5.40) M/uL Hgb 11.6 L (12.0-16.0) g/dl Hct 33.3 L (37.0-47.0) % Plt Count 265 (130-400) K/uL Neut # (Auto) 6.20 (1.40-6.50) K/uL Lymph # (Auto) 1.34 (1.20-3.40) K/uL [place] # (Auto) 0.56 (0.11-0.59) K/uL Eos # (Auto) 0.19 (0.00-0.50) K/uL Baso # (Auto) 0.06 (0.00-0.20) K/uL Comprehensive Metabolic Panel 03/31/24 Range/Units 05:44 Sodium 135 L (136-145) mmol/L Potassium 4.5 (3.5-5.1) mmol/L Chloride 101 (98-107) mmol/L Carbon Dioxide 28 (21-32) mmol/L BUN 11 (6-23) mg/dl Creatinine 0.79 (0.6-1.2) mg/dl Glucose 94 (70-99(Fasting)) mg/dl Calcium 9.6 (8.6-10.3) mg/dl AST 19 (13-39) U/L ALT 20 (7-52) U/L Alkaline Phosphatase 107 H (34-104) U/L Total Protein 7.0 (6.0-8.3) gm/dl Albumin 3.5 (3.4-5.0) gm/dl Intake and Output 03/30/24 03/31/24 03/31/24 22:59 06:59 14:59 Intake Total 240 / 1390 50 / 50 Balance 240 / 1389 50 / 50 Intake: IV 50 / 50 cefTRIAXone SODIUM 2,000 mg In 50 / 50 50 ml @ 100 mls/hr IV Q24H [facility] Rx#:[id number] Oral 240 / 1340 Other: # Unmeasured Voids 5 3 Weight 77.4 kg Weight Measurement Method Built in [facility]
[2024-03-31 15:32] LABS: Babesia microti DNA Not Detected (Not Detected)
[2024-03-31] MEDS: clonazePAM 1 MG TAB PO PRN (20:25)
--- NOTE | 2024-03-31 20:40 | Hospitalist Progress Note ---
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 Strep species suggested by preliminary PCR Presented recurrent fevers, generalized weakness, and WILSON over the past 2 weeks Patient on 162 mg of aspirin for her valve prophylaxis. She cannot tolerate Plavix stable and non-toxic appearing no defined source on CTA chest, Ct abd/pelvis w/IV con, CT head, and TTE which have been unremarkable ua with some blood small leuk esterace - elevated ESR and CRP - respiratory biofire have been negative Infectious disease consultation -Agree with Ceftriaxone 2G IV daily, await sensi/italia of antibiotics -Repeat Blood cultures q24-48 hours to document clearance -Follow Cardiology recommendations re lead evaluation/extraction -Monitor for seeding to skin, joints, brain, lungs Patient did have dental cleaning within the last few weeks she did take appropriate prophylaxis prior to the cleaning patient also did have some puncture wounds doing home remodeling none of them appear to be overtly infected Shady Nunez is consulted digital camera technician, and he has been in touch both with [facility] and [facility] who has been involved in the patient's cardiac care in the past. Certainly will need to coordinate outpatient infectious disease for after the patient is discharged obtained repeat cultures on 03/30 awaiting 48 jours preliminary read before placing picc line. for her pain, placed her on celecoxib, tylenol qid, lidocaine patch. awaiting 48nhours negative blood cultures. d/w case management. Patient will get PICC line tomorrow and hopefully she will be discharged. (2) Panic disorder: Plan: -Continue Wellbutrin and Clonazepam Admission and Anticipated Discharge Date Admission Date: March 28, 2024 Subjective 43 yo female reports no new symptoms. She is waiting for discharge and waiting for her blood cultures to be 48 hours negative. Pain appears better controlled. Review of Systems Review of Systems: All systems reviewed & are unremarkable except as noted in HPI & below Physical Exam Physical Exam: Awake alert appropriate. As mentioned no peripheral stigmata of endocarditis Appears comfortable. Results & Data Results & Data Vital Signs (Past 12 Hours) Vital Signs Temp Pulse Pulse Resp BP BP Pulse Ox 03/31/24 16:00 36.5 C 80 18 111/61 97 03/31/24 15:00 89 03/31/24 11:00 36.6 C 79 20 107/68 98 03/31/24 08:49 94 H 100/72 O2 Del Method 03/31/24 16:00 Room Air 03/31/24 15:00 03/31/24 11:00 Room Air 03/31/24 08:49 PG Care Time/CCT Total # of Minutes Spent Total Time Spent with Patient: Total time spent is greater than 50% in coordination of care (as documented) at patient's floor/unit and/or counseling patient: Coding Level of Care Code 30553 SUB INP/OBS CARE 2/35MIN Diagnoses Prolonged fever R50.9 Panic disorder F41.0
--- NOTE | 2024-04-01 11:44 | Discharge Summary ---
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 She remained stable in the ED. Labs were significant for a leukocytosis of 11 with neutrophil predominance of 9, sodium of 132, CRP of 9.27, ESR of 56, procal WNL, negative UA, and negative full respiratory biofire. Chest xray, CT of the head/brain wo con, CTA of the chest, and CT of the abd/pelvis w/IV con were all read as negative for acute findings. The patient also underwent outpatient TTE earlier today which noted mild-moderate tricuspid regurgitation and did not note obvious vegetations. The patient was evaluated by [facility] Cardiology in the ED (please see their note for details) and was recommended admission with empiric antibiotic coverage and LOU tomorrow. Prior to admission blood cultures were obtained, the patient was given a dose of ceftriaxone and and Vancomycin. At the time of the exam the patient was lying in bed in no acute distress. She states that she has been experiencing low grade fevers up to 100.9F, generalized weakness, and increased WILSON over the past 2 weeks. She notes that she and her have been renovating their home and she did step on a staple in their bathroom. Review of her immunization record shows she had a Tdap as of 2020. She also noted recent dental work over the past 1-2 months, she did take her prophylactic amoxicillin prior. Has been taking prn tylenol for her symptoms. She does add that she still has her loop recorder in place, since losing weight she has been noticing increased pain at the insertion site like she is being poked by the leads when moving. Principal Diagnosis prolonged fever: gram positive bacteremia Discharge Exam Awake alert appropriate. As mentioned no peripheral stigmata of endocarditis Appears comfortable. Discharge Data Allergies Allergy/AdvReac Type Severity Reaction Status Date / Time clopidogrel [From Plavix] Allergy Severe Facial Verified 03/28/24 18:46 swelling topiramate [From Topamax] Allergy Mild Rash Verified 03/28/24 18:46 spironolactone AdvReac Intermediate Hypokalemia Verified 03/28/24 18:46 [From Aldactone] Consultations 03/28/24 17:34 Consult Anesthesiology Routine 03/28/24 19:54 ED Decision to Admit Stat 03/29/24 08:05 Consult Infectious Diseases Routine 03/29/24 10:49 Consult Cardiology Routine Procedures Performed Operation Date: 03/29/24 07:30 Actual Procedures p Echo Transesophageal - DO chantelle Samuel Echo Doppler Complete - Curtis Patel DO s Echo Color Flow - Curtis Patel DO Ordered Studies 03/28/24 18:14 CT abd pelvis IV con only Stat CT head/brain wo con Stat Hospital Course (1) Prolonged fever: - 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 Strep oralis found on cukture Presented recurrent fevers, generalized weakness, and WILSON over the past 2 weeks Patient on 162 mg of aspirin for her valve prophylaxis. She cannot tolerate Plavix stable and non-toxic appearing no defined source on CTA chest, Ct abd/pelvis w/IV con, CT head, and TTE which have been unremarkable ua with some blood small leuk esterace - elevated ESR and CRP - respiratory biofire have been negative Infectious disease consultation -Agree with Ceftriaxone 2G IV daily, -documented clearance: will complete 6 weeks from 03/29 -Follow Cardiology recommendations re lead evaluation/extraction -Monitor for seeding to skin, joints, brain, lungs Patient did have dental cleaning within the last few weeks she did take a ppropriate prophylaxis prior to the cleaning patient also did have some puncture wounds doing home remodeling none of them appear to be overtly infected Shady Mayra is consulted winch operator, and he has been in touch both with [facility] and [facility] who has been involved in the patient's cardiac care in the past. Certainly will need to coordinate outpatient infectious disease for after the patient is discharged for her pain, placed her on celecoxib, tylenol qid PICC line placed (2) Panic disorder: -Continue Wellbutrin and Clonazepam Total Time Total Time Spent Total Time Spent (In Minutes): 32 Discharge Plan Discharge Items Patient Disposition: Home - Home Health Services Reason For Visit: CONCERN FOR PROSTHETIC VALVE ENDOCARDITIS Discharge Diagnosis: concern for prosthetic valve endocarditis. Activity: Resume your previous activity Non-emergency contact: Primary Care Provider Call non-emergency contact if: you have any medication questions Follow-up/Referrals: Keysha Roe DO [Primary Care Provider] - 04/18/24 9:20 am Diet: Heart Healthy Addtl Attending Provider Instructions: You were seen for bacteremia. Continue antibiotics for 6 weeks. Followup with PCP in 1-2 weeks. Continue to followup with Dr. Patel. Followup with [facility] for discussion on lead and further antibiotics. Pending Studies at Discharge: No Stand-Alone Forms: [facility] [employer], Work/School Release, Smoking Cessation Medications and DC Order Prescriptions: New acetaminophen 325 mg Tablet 650 mg PO QID 14 Days Qty: 112 0RF celecoxib [Celebrex] 100 mg Capsule 100 mg PO BID Qty: 28 0RF Rx Instructions: for 2 weeks ceftriaxone 2 gram recon soln 2 g IV DAILY Qty: 38 0RF Continued Saccharomyces boulardii [Florastor] 250 mg capsule 500 mg PO BID Qty: 240 1RF Rx Instructions: swallow whole etonogestrel-ethinyl estradiol 0.12-0.015 mg/24 hr ring 1 vag ring VAGINAL UD Qty: 3 11RF amoxicillin 500 mg tablet 2,000 mg PO ONCE PRN (Reason: dental procedure) Qty: 4 0RF losartan 25 mg tablet 25 mg PO QAM Qty: 90 1RF clonazepam 2 mg tablet 2 - 3 mg PO HS PRN (Reason: Anxiety) clindamycin phosphate 1 % solution 1 applic topical DAILY Qty: 30 0RF benzoyl peroxide 5 % cleanser 1 applic topical DAILY Qty: 142 0RF adapalene 0.3 % gel 1 applic topical DAILY Qty: 45 0RF fluticasone propionate [Allergy Relief (fluticasone)] 50 mcg/actuation spray,suspension 2 spray intranasal DAILY Rx Instructions: administer into each nostril dextroamphetamine-amphetamine [Adderall] 20 mg tablet 20 mg PO TID aspirin [Loreta Low Dose Aspirin] 81 mg Tablet,Delayed Release (Dr/Ec) 162 mg PO QAM epinephrine 0.3 mg/0.3 mL auto-injector 0.3 mg IM ONCE PRN (Reason: allergic reaction) Qty: 2 0RF Rx Instructions: repeat until response bupropion HCl [Wellbutrin SR] 150 mg Tablet Sustained-Release 12 Hr 300 mg PO QAM Zepbound 7.5 mg/0.5 mL pen injector 7.5 mg subcut WK Rx Instructions: MONDAYS----"D/T PHARMACY ISSUES, HAVE NOT TAKEN FOR SOME TIME". PER PT. MD ORDERED BOTH DOSES. Zepbound 10 mg/0.5 mL pen injector 10 mg subcut WK Rx Instructions: MONDAYS----"D/T PHARMACY ISSUES, HAVE NOT TAKEN FOR SOME TIME". PER PT. MD ORDERED BOTH DOSES. Discharge Orders: Discharge Order (Routine); Ordered 04/01/24 Ordered By: Rubén Anderson Admission Data Admit Date/Time: 03/28/24 20:11 Attending Provider: Rubén Anderson Admit Provider: Canelo Delgado Primary Care Provider: Keysha Roe Other Providers: Niya Echevarria; Canelo Delgado; Marni Cruz; Ivonne Warner; Shona Guillermo; Steffanie Davidson; Juan August; Nikki Hein; Leonor Cao; Curtis Patel; Nicole,Rony [facility]; Jamilawell,Fax Other Interventions: Discharge Summary Assessment (RN) Last Done: 04/01/24 11:46 Coding Level of Care Code 00085 INP/OBS DISCH >30 MIN Diagnoses Prolonged fever R50.9 Panic disorder F41.0
--- NOTE | 2024-04-01 13:53 | Cardiology Progress Note ---
Date of Service April 01, 2024 Assessment & Plan (1) Acute bacterial endocarditis: Plan: * 4/ initial blood cultures obtained on 03/28/2024 prior to antibiotics yielded Alpha streptococcus (not S.Pne/enterococcus)- final ED an sensitivities pending. * Cultures obtained on 03/29, and 03/30 without growth thus far * Patient with recent dental cleaning about 6 weeks ago, utilized amoxicillin prophylaxis. * No skin lesions observed. Did step on a nail/staple while removing carpet in her home. * Transesophageal echocardiogram without vegetation. The prosthetic pulmonic valve was suboptimally visualized, but no gross evidence of vegetation. * On further review of records and discussion with the patient, it would appear that the indwelling pacemaker lead that had been abandoned is the original lead that was placed when she developed postoperative atrial ventricular block after surgical VSD/tricuspid valve repair in [place] circa 1984. It is unclear whether the lead was revised at the time of her surgical Ross procedure in 1996, but the patient had an ongoing intra-abdominal pacemaker generator until it was removed by CT surgery at [facility] in 2009. I reviewed the operative report by Dr. Garduno in 2009, right ventricular lead extraction attempted at that time but was not successful. Per review of the transesophageal echocardiogram data, the lead appears to be adherent with the tricuspid valve apparatus. * Case reviewed with electrophysiology at [facility] by phone , and it was felt that the lead could not be extracted endovascularly. -- Initial cultures have yielded Streptococcus mitis/oralis that is resistant to erythromycin and intermediate susceptibility to azithromycin, but is sensitive to ampicillin, cefepime, cefotaxime, ceftriaxone, penicillin, vancomycin. * Patient stable for discharge on 6 weeks of IV Rocephin. * Will touch base with infectious disease with regards to previous plan for oral suppressive therapy afterward. * I left a message with Dr Layne with who the patient follows with at the adult congenital heart disease clinic at [facility] a few days ago, await call back to coordinate care. * Will plan on referring the patient to [facility] infectious disease for outpatient follow-up and will arrange outpatient cardiology follow-up with me. Admission and Anticipated Discharge Date Admission Date: March 28, 2024 Subjective Patient seen in cardiology follow-up. Tyrone well this morning. Remains afebrile. Telemetry reveals sinus rhythm in the 80s. Physical Exam Constitutional: WD/WN, vitals as above + ill appearing; no acute distress Eyes: PERRL, conjunctivae normal, anicteric sclerae Respiratory: normal respiratory effort, lungs clear to auscultation + cough Auscultation: no crackles, no rales, no rhonchi and no wheezes Cardiovascular: Rate/Rhythm: regular rate Heart Sounds: normal S1, normal S2 and + murmur (1/6 SM ) Vessels: no JVD Extremities: no edema Gastrointestinal (Abdomen): normal bowel sounds, soft, nontender, no hepatosplenomegaly Musculoskeletal: no cyanosis or clubbing, extremities motor strength 5/5 Skin: no rashes, warm and dry Neurologic: PERRL, EOMI, accommodation nl, no face palsy, no dysarthria Results & Data Vital Signs (Past 12 Hours) Vital Signs Temp Pulse Pulse Pulse Resp BP Pulse Ox 04/01/24 11:46 36.7 C 80 91 H 16 95/66 L 100 04/01/24 08:00 82 04/01/24 07:44 36.7 C 91 H 16 95/66 L 100 04/01/24 03:30 36.6 C 80 16 91/59 L 99 O2 Del Method 04/01/24 11:46 04/01/24 08:00 04/01/24 07:44 Room Air 04/01/24 03:30 Room Air Laboratory Results Intake and Output 03/31/24 04/01/24 04/01/24 22:59 06:59 14:59 Intake Total 50 / 50 Balance 50 / 50 Intake: IV 50 / 50 cefTRIAXone SODIUM 2,000 mg In 50 / 50 50 ml @ 100 mls/hr IV Q24H [facility] Rx#:[id number] Other: # Unmeasured Voids 3 1 Weight 77.4 kg Patient Weight 04/02/24 06:59 Weight 77.4 kg
[2024-04-01 14:09] LABS: Ehrlichia chaff DNA Bld Negative (Negative)
[2024-04-04 20:57] LABS: Q Fever IgG, Phase I NEGATIVE; Q Fever Phase I IgM Antibody NEGATIVE; Q Fever Phase II IgG Antibody NEGATIVE; Q Fever Phase II IgM Antibody NEGATIVE; R. typhi IgG Ab NOT DETECTED; R. typhi IgM Ab NOT DETECTED; RMSF IgG Ab NOT DETECTED; RMSF IgM Ab NOT DETECTED
== END 2024-04-01 12:23 | disposition home health service (06) | DRG 314 ==
LOC: ED 16:03 → 2E 20:11 → SUATTDRO 20:11 → 2E 21:11
DX: F90.9 Attention-deficit hyperactivity disorder, unspecified type; B95.4 Other streptococcus as the cause of diseases classified elsewhere; Z82.49 Family history of ischemic heart disease and other diseases of the circulatory system; I33.0 Acute and subacute infective endocarditis; I44.2 Atrioventricular block, complete; Z79.899 Other long term (current) drug therapy; I71.20 Thoracic aortic aneurysm, without rupture, unspecified; Z88.8 Allergy status to other drugs, medicaments and biological substances; Z95.2 Presence of prosthetic heart valve; Z86.79 Personal history of other diseases of the circulatory system; M10.9 Gout, unspecified; Z79.82 Long term (current) use of aspirin; Y83.1 Surgical operation with implant of artificial internal device as the cause of abnormal reaction of the patient, or of later complication, without mention of misadventure at the time of the procedure; T82.7XXA Infection and inflammatory reaction due to other cardiac and vascular devices, implants and grafts, initial encounter; F41.0 Panic disorder [episodic paroxysmal anxiety]

== ENCOUNTER 2024-08-23 09:03 | Inpatient (IN) ==
[2024-08-23 09:55] LABS: Basophils # (auto) 0.06 K/uL (0.00-0.20); Basophils % (auto) 0.7 %; Eosinophils % (auto) 3.3 %; Hemoglobin 13.3 g/dl (12.0-16.0); Immature Granulocytes # (auto) 0.03 K/uL (0.01-0.20); Immature Granulocytes % (auto) 0.3 %; Lymphocytes # (auto) 1.58 K/uL (1.20-3.40); Lymphocytes % (auto) 17.4 %; Mean Corpuscular Hemoglobin 28.7 pg (25.0-34.0); Mean Corpuscular Hgb Conc 31.7 g/dL (32.0-36.0); Mean Corpuscular Volume 90.5 fL (80.0-100.0); Mean Platelet Volume 9.9 fL (9.4-12.4); Monocytes # (auto) 0.57 K/uL (0.11-0.59); Monocytes % (auto) 6.3 %; Neutrophils # (auto) 6.56 K/uL (1.40-6.50); Platelet Count 248 K/uL (130-400); RDW Coefficient of Variation 14.6 % (11.5-14.5); RDW Standard Deviation 47.8 fL (36.4-46.3); Red Blood Count 4.64 M/uL (4.20-5.40)
[2024-08-23] MEDS ORDERED: VANCOMYCIN CONSULT ACTIVE PRN ×2 (10:02→12:47)
[2024-08-23 10:05] LABS: Pregnancy Test, Serum Negative (Negative)
--- NOTE | 2024-08-23 10:13 | XRay Report ---
XR chest 1V portable HISTORY: 43 years-old Female cp, fever acute chest pain with fever COMPARISON: Radiographs 03/29/2024 TECHNIQUE: AP view of the chest FINDINGS: An electronic device projects over the left heart. Enlargement of the cardiac silhouette. Sternotomy wires are present. No pneumothorax, pleural effusion or airspace consolidation. The bones appear curtis sly intact. IMPRESSION: No acute process. ACT 112: Negative or not required by law. The above report was generated using voice recognition software. It may contain grammatical, syntax o r spelling errors. Electronically signed by: Gerry Mixon M.D. 08/23/2024 10:12 AM
[2024-08-23 10:14] LABS: Albumin Globulin Ratio 1.4 (0.9-2); Albumin Level 4.5 gm/dl (3.4-5.0); BUN Creatinine Ratio 14.9 (10-20); Bilirubin,Total 0.4 mg/dl (0.2-1.0); C Reactive Protein 1.85 mg/dl (0-0.5); Calcium 9.7 mg/dl (8.6-10.3); Globulin 3.2 gm/dl (2.5-4.0); Magnesium 1.7 mg/dl (1.7-2.4); Potassium 3.9 mmol/L (3.5-5.1); Total Protein 7.7 gm/dl (6.0-8.3)
[2024-08-23 10:19] LABS: Troponin I High Sensitivity 4.1 pg/ml (0-14)
[2024-08-23 10:28] LABS: Thyroid Stimulating Hormone 1.29 uIu/ml (0.300-4.500)
[2024-08-23 10:36] LABS: INR 0.9 (0.9-1.1); Prothrombin Time 10.3 Seconds (9.0-12.0)
[2024-08-23 10:41] LABS: Adenovirus PCR Not Detected (NotDetected); Bordetella parapertussis PCR Not Detected (NotDetected); Bordetella pertussis PCR Not Detected (NotDetected); Chlamydia pneumoniae PCR Not Detected (NotDetected); Coronavirus 229E PCR Not Detected (NotDetected); Coronavirus CoV-2 (COVID19)PCR Not Detected (NotDetected); Coronavirus HKU1 PCR Not Detected (NotDetected); Coronavirus NL63 PCR Not Detected (NotDetected); Coronavirus OC43PCR Not Detected (NotDetected); Human Metapneumovirus PCR Not Detected (NotDetected); Influenza A PCR Not Detected (NotDetected); Influenza B PCR Not Detected (NotDetected); Mycoplasma pneumoniae PCR Not Detected (NotDetected); Parainfluenza Virus 1 PCR Not Detected (NotDetected); Parainfluenza Virus 2 PCR Not Detected (NotDetected); Parainfluenza Virus 3 PCR Not Detected (NotDetected); Parainfluenza Virus 4 PCR Not Detected (NotDetected); Respiratory Syncytial VirusPCR Not Detected (NotDetected); Rhinovirus/Enterovirus PCR Not Detected (NotDetected)
--- NOTE | 2024-08-23 10:45 | Emergency Department Note ---
Impression & Plan Fever, Chest pain ED Provider Note ED Provider Note NAME: JEANNINE ROCHE AGE:43 SEX: Female : 1980 ARRIVES VIA: Private vehicle INFORMANT: Patient ED PROVIDER(s): Lucinda Moser DO CHIEF COMPLAINT: Referred by Dr. Patel HPI: This is a 43-year-old female presents emergency department after being referred here by Dr. Patel due to concern for low-grade fevers and night sweats for 2 nights. Patient has had prior episodes with similar presentations and has previously been admitted for endocarditis. Patient with complicated cardiac history and multiple prior surgeries. Patient with history of congenital heart problems also. Patient follows with Dr. Patel locally and has also been hospitalized at at the [facility]. She states her 14-year-old has been ill also, uncertain if she could have been exposed to an illness. 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 She states she did have a brief episode of left-sided chest pain this morning. She denies any shortness of breath but admits to increased fatigue. She denies abdominal pain, vomiting, diarrhea, or leg swelling. No overt URI symptoms. Patient states temperature at home was 99.[address] Patel did come to emergency department to provide additional history before the patient was even in a regular patient room. PAST MEDICAL HISTORY:See Below PAST SURGICAL HISTORY:See Below FAMILY HISTORY:See Below SOCIAL HISTORY:See Below HOME MEDICATIONS:See Below ALLERGIES:See Below VITALS:See Below PHYSICAL EXAMINATION: GENERAL: alert, well appearing, well nourished, no distress, non-toxic EYE EXAM: normal conjunctiva, PERRL and EOM's grossly intact OROPHARYNX: no exudate, no erythema, lips, buccal mucosa, and tongue normal and mucous membranes are moist NECK: supple, no nuchal rigidity, no adenopathy, non-tender LUNGS: Clear to auscultation. Normal chest wall mechanics, no w/r/r HEART: no murmurs, S1 normal and S2 normal, multiple well-healed scars noted ABDOMEN: abdomen soft, non-tender, normo-active bowel sounds, no masses, no rebound or guarding. SKIN: no rashes, petechiae, orbruising UPPER EXTREMITIES: upper extremities are grossly normal. FROM, nml pulses b/l. LOWER EXTREMITIES: No pitting edema. FROM, nml pulses b/l. NEURO EXAM: Normal sensorium, cranial nerves II-XII grossly intact, normal speech, no facial droop,nogross weakness of arms, no gross weakness of legs. Gross sensation intact. No ataxia. Vital Signs: reviewed and remarkable Differential Diagnosis: URI, viral syndrome, pneumonia, pericarditis, myocarditis, endocarditis, PE, cellulitis, AOM, as well as others were considered MEDICAL DECISION MAKING: This is a 43-year-old female with a complex past cardiac history who was referred to the emergency department by Dr. Patel who was concern for 2 days of night sweats and low-grade fevers. Patient with significant past cardiac history as well as recent episode of endocarditis requiring 6 weeks of IV antibiotics. Patient reported intermittent chest pain as well as fatigue in addition to the night sweats and low-grade fever at home. Patient had already had 2 blood cultures drawn in the outpatient lab, and then was immediately brought over to the emergency department. Labs drawn and sent, IV established, EKG and chest ray performed at bedside interpreted by me and patient monitored on telemetry. Nasal swab obtained for bio fire additionally. I did discuss case with Dr. Patel who also came to the bedside and evaluated the patient in the emergency department and added additional orders. Case discussed with the hospitalist team additionally. Patient started on IV vancomycin and IV Rocephin while awaiting cultures and further evaluation for possible recurrent endocarditis. Consultation(s): 1058: DIscussed with Dr. Christianson, [facility] hospitalist team, for additional evaluation and management. 1120: Dr. Patel now at bedside. ER Treatment Provided: See below Diagnostics Interpreted By Me: -ECG: Normal sinus at 93, normal axis, normal intervals, appearance of incomplete right bundle branch block, nonspecific ST/T wave changes -Cardiac Monitoring: An order was placed for continuous cardiac monitoring. The monitor shows a rate of 88 with normal sinus rhythm. -Laboratory studies: As stated above and show below. -Imaging studies: cxr: Cardiomegaly noted, sternotomy wires present, no focal consolidation or pleural effusion Triage Nursing Note Reviewed Prior/Outside Records Reviewed Past Med/Surg History Problem List Pacemaker Aortic valve repair, complicated with complete heart block and PPM insertion (1984) > multiple removal/replacements with most recently Medtronic Micra AV pacing system (10/2020) Neuropathic pain of hand Acute bacterial endocarditis History of endocarditis Hematoma of right inguinal region Chest pain (Acute) Fever (Acute) Subacute bacterial endocarditis Bilateral carpal tunnel syndrome Anemia Anxiety History of aortic valve disease Congenital bicuspid aortic valve > childhood aortic valve repair, complicated with complete heart block and PPM insertion (1984) > Ross procedure (1996) SBE (subacute bacterial endocarditis) prophylaxis candidate 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 Layne) and locally Dr. Patel locally Polycystic ovaries History of congenital heart disease ADD (attention deficit disorder) Ventricular septal defect s/p VSD (1984) Heart block, AV (Acute) PACEMAKER INSERTED Endometriosis Medical History Obesity Thoracic ascending aortic aneurysm 4.7cm ascending thoracic aortic aneurysm under surveillance by cardiology 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 (10/2020) Hx of thoracic outlet syndrome Surgical History Status post cardiac surgery (06/14/24) s/p 5th redo sternotomy, extirpation of infected damien valve, extirpation of infected retained TV pacing lead from TV, TV repair, femoral artery exposure and repair (elective). History of surgery (06/23/24) Remnant lead extraction, loop recorder extraction S/P exploratory laparotomy (03/15/21) w/ excision of subcutaneous nodule Status post cardiac pacemaker procedure Aortic valve repair, complicated with complete heart block and EPM insertion (1984) Partial removal w/ lead retained (2009) History of nasal surgery + septoplasty History of cardiac cath x2 History of surgery I&D right groin area s/p cath (11/2020) > resolved S/P cardiac pacemaker procedure (10/2020) Medtronic Micra AV pacing system (10/2020) Status post placement of implantable loop recorder 2017 H/O aortic valve repair (1982) Congenital s/p valvotomy ([facility]) S/P Ross procedure (1997) S/P VSD repair (1984) S/P section x1 H/O umbilical hernia repair Incarcerated umbilical hernia repair S/P laparoscopic cholecystectomy Family History Father Diabetes Coronary heart disease Hypertension Mother Hypertension Aunt Breast cancer paternal aunt Other No family history of adverse response to anesthesia Denies family history of Ovarian cancer Prostate cancer Myocardial infarction Colorectal cancer Social History Smoking Status: Never smoker Tobacco Type: Cigarettes packs per day: 1; Second Hand Exposure: No; Do You Dip or Chew Tobacco: No; Tobacco Cessation Education Requested by Patient: No Hx Alcohol Use: No Hx Substance Use: No Preferred Language: Slovenian Communication Ability: Effective Visual Impairment: No Limitations Hearing Ability: Normal Teletype Technician Required: No Beliefs That Will Affect Care: None marital status: Current Living Situation: Spouse Current Living Situation Comment: LIVES WITH SON current occupational status: employed 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 How many Children do You have: 1 Other Information That Helps Us Care for You: No Feels Safe at Home: Yes Safety Concerns: Feels Safe At This Time Diet: regular caffeine: Yes during the past year weight has: remained stable Dental Care, Regularly: Yes Physical Activity Frequency: Other Seatbelt Use: always Sunscreen Use: Yes Assistive Devices: None Allergies Allergies Allergy/AdvReac Type Severity Reaction Status Date / Time clopidogrel [From Plavix] Allergy Severe Facial Verified 08/08/24 15:43 swelling topiramate [From Topamax] Allergy Mild Rash Verified 08/08/24 15:43 spironolactone AdvReac Intermediate Hypokalemia Verified 08/08/24 15:43 [From Aldactone] chlorhexidine AdvReac Verified 08/08/24 15:43 Home Meds Home Medications Medication Instructions Recorded Confirmed fluticasone propionate 50 2 spray intranasal DAILY 02/04/24 08/23/24 mcg/actuation nasal spray,suspension (Allergy Relief (fluticasone)) aspirin 81 mg tablet,delayed 81 mg PO QAM 06/27/24 08/23/24 release (Loreta Low Dose Aspirin) furosemide 40 mg tablet 40 mg PO DAILY 06/27/24 08/23/24 polyethylene glycol 3350 17 17 g PO DAILY PRN Constipation 06/27/24 08/23/24 gram/dose oral powder (Miralax) potassium chloride 20 mEq 20 meq PO DAILY 06/27/24 08/23/24 tablet,extended release tirzepatide 10 mg/0.5 mL 10 mg subcut WK 06/27/24 08/23/24 subcutaneous pen injector duloxetine 60 mg capsule,delayed 0 mg PO BID 07/11/24 08/23/24 release (Cymbalta) gabapentin 300 mg capsule 0 mg PO BID 08/08/24 08/23/24 clonazepam 2 mg tablet (Klonopin) 3 mg PO DAILY 08/23/24 08/23/24 etonogestrel 0.12 mg-ethinyl 0 vag ring vaginal UD 08/23/24 08/23/24 estradiol 0.015 mg/24 hr vaginal ring losartan 25 mg tablet 0 mg PO DAILY 08/23/24 08/23/24 Previous Rx's Medication Instructions Recorded adapalene 0.3 % topical gel 1 applic topical DAILY #45 grams 08/02/20 clindamycin phosphate 1 % topical 1 applic topical DAILY #30 mL 08/02/20 solution epinephrine 0.3 mg/0.3 mL 0.3 mg (0.3 mL) IM ONCE PRN 10/31/20 injection, auto-injector allergic reaction #2 ea ferrous sulfate 325 mg (65 mg 325 mg PO DAILY #90 tabs 06/28/24 iron) tablet ascorbate calcium (vitamin C) 500 500 mg PO DAILY #30 tabs 07/04/24 mg tablet docusate sodium 100 mg capsule 100 mg PO BID #60 caps 07/04/24 (Colace) pantoprazole 20 mg tablet,delayed 20 mg PO DAILY #90 tabs 07/04/24 release sennosides 8.6 mg tablet (senna) 8.6 mg PO BID #60 tabs 07/04/24 gabapentin 400 mg capsule 800 mg (2 x 400 mg) PO HS #180 caps 08/08/24 oxycodone 5 mg tablet See Rx Instructions PO Q8H PRN 08/08/24 pain #60 tabs Results & Data (ED) Vital Signs Vital Signs - 24 hr 08/23/24 09:15 08/23/24 09:33 08/23/24 09:35 Temperature 36.8 C Temperature Source Oral Pulse Rate 94 H 94 H Pulse Rate from SpO2 Sensor Respiratory Rate 20 Respiratory Effort / Characteristics Non-Labored Spontaneous Respiratory Depth Normal Respiratory Pattern Regular Blood Pressure 119/82 119/82 Blood Pressure Mean 94 95 Pulse Oximetry 98 Oxygen Delivery Method Room Air Sepsis Recent Fever Within 48 Hours Yes Sepsis New/Unexplained Change in Mental Status No Sepsis Action Taken by Nursing No Action Required 08/23/24 09:45 08/23/24 09:51 08/23/24 10:00 Temperature Temperature Source Pulse Rate 93 H 96 H Pulse Rate from SpO2 Sensor 91 H Respiratory Rate 13 17 Respiratory Effort / Characteristics Respiratory Depth Respiratory Pattern Blood Pressure 99/55 L Blood Pressure Mean 63 Pulse Oximetry 100 Oxygen Delivery Method Sepsis Recent Fever Within 48 Hours Sepsis New/Unexplained Change in Mental Status Sepsis Action Taken by Nursing 08/23/24 10:12 08/23/24 10:21 08/23/24 10:30 Temperature Temperature Source Pulse Rate 86 85 89 Pulse Rate from SpO2 Sensor 85 87 91 H Respiratory Rate 12 22 23 Respiratory Effort / Characteristics Respiratory Depth Respiratory Pattern Blood Pressure Blood Pressure Mean Pulse Oximetry 99 100 96 Oxygen Delivery Method Sepsis Recent Fever Within 48 Hours Sepsis New/Unexplained Change in Mental Status Sepsis Action Taken by Nursing 08/23/24 10:30 08/23/24 10:39 08/23/24 11:00 Temperature Temperature Source Pulse Rate 90 Pulse Rate from SpO2 Sensor 91 H Respiratory Rate 24 Respiratory Effort / Characteristics Respiratory Depth Respiratory Pattern Blood Pressure 112/60 109/74 Blood Pressure Mean 70 98 Pulse Oximetry 96 Oxygen Delivery Method Sepsis Recent Fever Within 48 Hours Sepsis New/Unexplained Change in Mental Status Sepsis Action Taken by Nursing 08/23/24 11:06 Temperature Temperature Source Pulse Rate 91 H Pulse Rate from SpO2 Sensor 92 H Respiratory Rate 26 H Respiratory Effort / Characteristics Respiratory Depth Respiratory Pattern Blood Pressure Blood Pressure Mean Pulse Oximetry 98 Oxygen Delivery Method Sepsis Recent Fever Within 48 Hours Sepsis New/Unexplained Change in Mental Status Sepsis Action Taken by Nursing Laboratory Data 08/23/24 09:30 08/23/24 09:30 Lab Results 08/23/24 Range/Units 09:30 WBC 9.10 (4.8-10.8) K/ul RBC 4.64 (4.20-5.40) M/uL Hgb 13.3 (12.0-16.0) g/dl Hct 42.0 (37.0-47.0) % MCV 90.5 (80.0-100.0) fL MCH 28.7 (25.0-34.0) pg MCHC 31.7 L (32.0-36.0) g/dL RDW Std Deviation 47.8 H (36.4-46.3) fL RDW Coeff of Christine 14.6 H (11.5-14.5) % Plt Count 248 (130-400) K/uL MPV 9.9 (9.4-12.4) fL Immature Gran % (Auto) 0.3 % Neut % (Auto) 72.0 % Lymph % (Auto) 17.4 % [place] % (Auto) 6.3 % Eos % (Auto) 3.3 % Baso % (Auto) 0.7 % Neut # (Auto) 6.56 H (1.40-6.50) K/uL Lymph # (Auto) 1.58 (1.20-3.40) K/uL [place] # (Auto) 0.57 (0.11-0.59) K/uL Eos # (Auto) 0.30 (0.00-0.50) K/uL Baso # (Auto) 0.06 (0.00-0.20) K/uL Immature Gran # (Auto) 0.03 (0.01-0.20) K/uL ESR 44 H (0-20) mm/hr PT 10.3 (9.0-12.0) Seconds INR 0.9 (0.9-1.1) Sodium 136 (136-145) mmol/L Potassium 3.9 (3.5-5.1) mmol/L Chloride 104 (98-107) mmol/L Carbon Dioxide 24 (21-32) mmol/L Anion Gap 8 (3-11) BUN 10 (6-23) mg/dl Creatinine 0.67 (0.6-1.2) mg/dl Est Cr Clr Drug Dosing 118.0 ml/min eGFR 111.84 BUN/Creatinine Ratio 14.9 (10-20) Glucose 86 (70-99(Fasting)) mg/dl Calcium 9.7 (8.6-10.3) mg/dl Magnesium 1.7 (1.7-2.4) mg/dl Total Bilirubin 0.4 (0.2-1.0) mg/dl AST 19 (13-39) U/L ALT 19 (7-52) U/L Alkaline Phosphatase 109 H (34-104) U/L Troponin I High Sens 4.1 (0-14) pg/ml C-Reactive Protein 1.85 H (0-0.5) mg/dl Total Protein 7.7 (6.0-8.3) gm/dl Albumin 4.5 (3.4-5.0) gm/dl Globulin 3.2 (2.5-4.0) gm/dl Albumin/Globulin Ratio 1.4 (0.9-2) Lipase 26 (11-82) U/L Procalcitonin < 0.02 (0-0.5) ng/ml TSH 1.290 (0.300-4.500) uIu/ml HCG, Qual Negative (Negative) Administered Medications Loratadine (Loratadine 10 Mg Tab) 10 mg PO QAM JIM Stop: 09/22/24 12:46 Last Admin: 08/23/24 14:10 Dose: 10 mg Documented By: ERNIE Oxycodone HCl (Oxycodone Hcl Ir 5 Mg Tab (Immediate Release)) 5 mg PO Q8H PRN PRN Reason: [id number] Pain (6-10) Stop: 09/06/24 12:46 Last Admin: 08/23/24 15:01 Dose: 5 mg Documented By: JACKI Discontinued Medications Fentanyl Citrate (Fentanyl Citrate Pf 100 Mcg/2 Ml Vial) 50 mcg IV Q15M PRN PRN Reason: Pain Stop: 09/06/24 10:45 Last Admin: 08/23/24 10:54 Dose: 50 mcg Documented By: MARLO Vancomycin HCl 1,500 mg/ (Sodium Chloride) 530 mls @ 200 mls/hr IV NOW ONE Stop: 08/23/24 12:40 Last Infusion: 08/23/24 15:01 Dose: Infused Documented By: Admin: 08/23/24 11:28 Dose: 200 mls/hr Documented By: HAYDEE Ceftriaxone Sodium (Rocephin) 2,000 mg in 50 mls @ 100 mls/hr IV NOW STA Stop: 08/23/24 10:36 Last Infusion: 08/23/24 11:29 Dose: Infused Documented By: Admin: 08/23/24 10:53 Dose: 100 mls/hr Documented By: MARLO Acetaminophen (Ofirmev) 1,000 mg in 100 mls @ 400 mls/hr IV NOW STA Stop: 08/23/24 11:00 Last Infusion: 08/23/24 15:16 Dose: Infused Documented By: Admin: 08/23/24 15:01 Dose: 400 mls/hr Documented By: JACKI Imaging Data Radiologist's Impression: Chest X-Ray 08/23/24 09:32 XR chest 1V portable HISTORY: 43 years-old Female cp, fever acute chest pain with fever COMPARISON: Radiographs 03/29/2024 TECHNIQUE: AP view of the chest FINDINGS: An electronic device projects over the left heart. Enlargement of the cardiac silhouette. Sternotomy wires are present. No pneumothorax, pleural effusion or airspace consolidation. The bones appear grossly intact. IMPRESSION: No acute process. ACT 112: Negative or not required by law. The above report was generated using voice recognition software. It may contain grammatical, syntax or spelling errors. Electronically signed by: Gerry Mixon M.D. 08/23/2024 10:12 AM Discharge Plan Visit Data Chief Complaint: Referred by Doctor Stated Complaint: POSSIBLE REOCCURING ENDOCARDITIS ED Provider: Lucinda Moser Discharge Problem: Fever, Chest pain Patient Disposition: Admitted As Inpatient Discharge Instructions Interventions: ED Discharge Assessment Last Done: 08/23/24 11:55
[2024-08-23] MEDS: cefTRIAXone SODIUM 2,000 MG/50 ML BAG IV STA (10:53)
[2024-08-23] MEDS: fentaNYL citrate PF 100 MCG/2 ML VIAL IV PRN (10:54)
--- NOTE | 2024-08-23 11:09 | History & Physical Report ---
Date of Service August 23, 2024 History of Present Illness Primary Care Provider: Keysha Roe DO Nery Berman is a 43 year old female who presents to the ER Allergies Allergy/AdvReac Type Severity Reaction Status Date / Time clopidogrel [From Plavix] Allergy Severe Facial Verified 08/08/24 15:43 swelling topiramate [From Topamax] Allergy Mild Rash Verified 08/08/24 15:43 spironolactone AdvReac Intermediate Hypokalemia Verified 08/08/24 15:43 [From Aldactone] chlorhexidine AdvReac Verified 08/08/24 15:43 Home Medications Medication Instructions Recorded Confirmed Type adapalene 0.3 % topical gel 1 applic topical DAILY #45 grams 08/02/20 08/08/24 Rx clindamycin phosphate 1 % topical 1 applic topical DAILY #30 mL 08/02/20 08/08/24 Rx solution epinephrine 0.3 mg/0.3 mL 0.3 mg (0.3 mL) IM ONCE PRN 10/31/20 08/08/24 Rx injection, auto-injector allergic reaction #2 ea etonogestrel 0.12 mg-ethinyl 1 vag ring vaginal UD #3 ea 12/14/23 08/08/24 Rx estradiol 0.015 mg/24 hr vaginal ring fluticasone propionate 50 2 spray intranasal DAILY 02/04/24 08/08/24 History mcg/actuation nasal spray,suspension (Allergy Relief (fluticasone)) amoxicillin 500 mg capsule 2,000 mg PO ONCE PRN 06/27/24 08/08/24 History aspirin 81 mg tablet,delayed 81 mg PO QAM 06/27/24 08/08/24 History release (Loreta Low Dose Aspirin) clonazepam 2 mg tablet 2 - 3 mg PO HS PRN Anxiety 06/27/24 08/08/24 History furosemide 40 mg tablet 40 mg PO DAILY 06/27/24 08/08/24 History polyethylene glycol 3350 17 17 g PO DAILY PRN 06/27/24 08/08/24 History gram/dose oral powder (Miralax) potassium chloride 20 mEq 20 meq PO DAILY 06/27/24 08/08/24 History tablet,extended release tirzepatide 10 mg/0.5 mL 10 mg subcut .weekly 06/27/24 08/08/24 History subcutaneous pen injector ferrous sulfate 325 mg (65 mg 325 mg PO DAILY #90 tabs 06/28/24 08/08/24 Rx iron) tablet ascorbate calcium (vitamin C) 500 500 mg PO DAILY #30 tabs 07/04/24 08/08/24 Rx mg tablet docusate sodium 100 mg capsule 100 mg PO BID #60 caps 07/04/24 08/08/24 Rx (Colace) pantoprazole 20 mg tablet,delayed 20 mg PO DAILY #90 tabs 07/04/24 08/08/24 Rx release sennosides 8.6 mg tablet (senna) 8.6 mg PO BID #60 tabs 07/04/24 08/08/24 Rx duloxetine 60 mg capsule,delayed 60 mg PO BID 07/11/24 08/08/24 History release (Cymbalta) gabapentin 300 mg capsule See Rx Instructions .Route .COMPLEX 08/08/24 08/08/24 History gabapentin 400 mg capsule 800 mg (2 x 400 mg) PO HS #180 caps 08/08/24 08/08/24 Rx oxycodone 5 mg tablet See Rx Instructions PO Q8H PRN 08/08/24 08/08/24 Rx pain #60 tabs Past Med/Surg History Problem List (Updated 08/23/24 @ 10:45 by Lucinda Moser DO) Chest pain (Acute) Fever (Acute) Subacute bacterial endocarditis Bilateral carpal tunnel syndrome Anemia Anxiety History of aortic valve disease Congenital bicuspid aortic valve > childhood aortic valve repair, complicated with complete heart block and PPM insertion (1984) > Ross procedure (1996) SBE (subacute bacterial endocarditis) prophylaxis candidate 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 Layne) and locally Dr. 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 History of surgery (06/23/24) Remnant lead extraction, loop recorder extraction S/P exploratory laparotomy (03/15/21) w/ excision of subcutaneous nodule Status post cardiac pacemaker procedure Aortic valve repair, complicated with complete heart block and EPM insertion (1984) Partial removal w/ lead retained (2009) History of nasal surgery + septoplasty History of cardiac cath x2 History of surgery I&D right groin area s/p cath (11/2020) > resolved S/P cardiac pacemaker procedure (10/2020) Medtronic Micra AV pacing system (10/2020) Status post placement of implantable loop recorder 2017 H/O aortic valve repair (1982) Congenital s/p valvotomy ([facility]) S/P Ross procedure (1997) S/P VSD repair (1984) S/P section x1 H/O umbilical hernia repair Incarcerated umbilical hernia repair S/P laparoscopic cholecystectomy Family History Father Diabetes Coronary heart disease Hypertension Mother Hypertension Aunt Breast cancer Other No family history of adverse response to anesthesia Denies family history of Ovarian cancer Prostate cancer Myocardial infarction Colorectal cancer Social History Smoking Status: Never smoker Tobacco Type: Cigarettes packs per day: 1; Second Hand Exposure: No; Do You Dip or Chew Tobacco: No; Hx Alcohol Use: Yes Alcohol type: beer and wine Alcohol Intake Frequency: Monthly or Less Alcohol Intake Frequency Comment: rare Hx Substance Use: No Preferred Language: Grenadian Communication Ability: Effective Visual Impairment: No Limitations Hearing Ability: Normal Cell Tender Helper Required: No Beliefs That Will Affect Care: None marital status: Current Living Situation: Significant Other Current Living Situation Comment: LIVES WITH SON current occupational status: employed 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 How many Children do You have: 1 Feels Safe at Home: Yes Diet: regular caffeine: Yes during the past year weight has: remained stable Dental Care, Regularly: Yes Physical Activity Frequency: Other Seatbelt Use: always Sunscreen Use: Yes Assistive Devices: None Results & Data Results & Data Vital Signs (Past 12 Hours) Vital Signs Temp Pulse Resp BP Pulse Ox O2 Del Method 08/23/24 09:51 96 H 17 08/23/24 09:45 93 H 13 100 08/23/24 09:35 119/82 08/23/24 09:33 94 H 08/23/24 09:15 36.8 C 94 H 20 119/82 98 Room Air Laboratory Results Abnormal lab results 08/23/24 Range/Units 09:30 MCHC 31.7 L (32.0-36.0) g/dL RDW Std Deviation 47.8 H (36.4-46.3) fL RDW Coeff of Christine 14.6 H (11.5-14.5) % Neut # (Auto) 6.56 H (1.40-6.50) K/uL ESR 44 H (0-20) mm/hr Alkaline Phosphatase 109 H (34-104) U/L C-Reactive Protein 1.85 H (0-0.5) mg/dl Diagnostic Findings XR chest 1V portable HISTORY: 43 years-old Female cp, fever acute chest pain with fever COMPARISON: Radiographs 03/29/2024 TECHNIQUE: AP view of the chest FINDINGS: An electronic device projects over the left heart. Enlargement of the cardiac silhouette. Sternotomy wires are present. No pneumothorax, pleural effusion or airspace consolidation. The bones appear grossly intact. IMPRESSION: No acute process. Medications Administered ER medications given: Vancomycin 1500 mg IV Fentanyl 50 mcg IV Ceftriaxone 2g IV Code Status & VTE Plan VTE Prophylaxis Plan VTE Prophylaxis will be ordered: Yes PG Care Time/CCT Total # of Minutes Spent Total Time Spent with Patient: Total time spent is greater than 50% in coordination of care (as documented) at patient's floor/unit and/or counseling patient: Coding
--- NOTE | 2024-08-23 11:25 | Electrocardiogram Report ---
Test Reason : Blood Pressure : */* mmHG Vent. Rate : 93 BPM Atrial Rate : 93 BPM P-R Int : 170 ms QRS Dur : 92 ms QT Int : 342 ms P-R-T Axes : 41 78 53 degrees QTcB Int : 425 ms Normal sinus rhythm Incomplete right bundle branch block Nonspecific ST and T wave abnormality Abnormal ECG When compared with ECG of 28-Mar-2024 16:19, Incomplete right bundle branch block is now Present Borderline criteria for Anterior infarct are now Present Confirmed by Jovi Ahuja ([id number]) on 08/23/2024 11:24:49 AM Referred By: Curtis Patel Confirmed By: Jovi Ahuja
--- NOTE | 2024-08-23 11:27 | History & Physical Report ---
Date of Service August 23, 2024 Assessment & Plan (1) Acute bacterial endocarditis: Plan: Sent in by batterboard setter on 08/23; concern for infective endocarditis Hx of infective endocarditis No leukocytosis; however patient does report she had a fever at home CRP elevated at 1.85 on arrival Blood cultures x 2 drawn in the ED Echocardiogram on 08/23 revealed no evidence of vegetation; LVEF 55-60% History of valve disease/replacement in May 2024 Vancomycin 1500 mg IV q24h Rocephin 2000 mg IV q24h Acetaminophen as needed for fever/pain Cardiology consult appreciated N.p.o. at midnight in the event that patient requires a LOU Infectious disease consult appreciated A.m. CBC, BMP, CRP (2) Hematoma of right inguinal region: Plan: Used in the past for vascular access Ultrasound of the soft tissue of the right groin ordered, pending (3) History of endocarditis: Plan: Follows with [facility] ID (4) Neuropathic pain of hand: Plan: Recent carpal tunnel surgery on right wrist Continue home medications for neuropathic pain (5) Pacemaker: Plan: Pacemaker x 40 years Multiple removal/replacements (6) S/P pulmonary valve replacement: (7) History of bicuspid aortic valve: Plan [facility] Full code Heart healthy diet, n.p.o. at midnight VTE PPx: Lovenox 40 mg SQ q24h History of Present Illness Chief Complaint: Referred by doctor Primary Care Provider: DO Eryn Riosi is a 43-year-old female with PMH of infective endocarditis, aortic valve disease, pulmonary valve replacement, anxiety, depression, ADD, VSD, heart block, and endometriosis. She presented on 08/23 at the behest of her batterboard setter (Dr. Patel). Patient started to develop fever and night sweats 2 nights ago. She reports that she was so sweaty that her pajamas were soaked. She also developed excessive tiredness, which is similar to her past episode of acute bacterial endocarditis. For instance, she had difficulty walking up steps and became winded. She was also having recurrent low-grade temperatures at 99.3 F similar to her first episode of endocarditis. She has been taking Tylenol daily for her symptoms. Taking Tylenol alleviates all of her symptoms within 40 minutes, and for this reason, she waited until this morning to come in for blood cultures to be drawn. This morning, she also developed low, transverse chest pain under her breast bilaterally; pleuritic chest pain worse with deep breaths. She characterizes this chest pain as a "pinching pain" that radiates between her shoulder blades with deep breaths. Given her history, she does have an order for as needed blood cultures to be drawn in the event that she develops any symptoms similar to her prior episode of endocarditis. While in the hospital having her blood cultures drawn, she met with her batterboard setter (Dr. Patel) who recommended she go to the ED immediately. No sick contacts, however she does have a child in middle school has been more tired lately; initial attributed this to "growing phase". Remote history of endocarditis and was hospitalized at [facility] in January and February 2024. Follows with [facility] ID and cardiothoracic surgery. Had surgery for a pulmonary valve tissue replacement (homograft) at the end of May 2024. She also has history of a pacemaker placement due to a "botched surgery" when she was a baby leading to VSD and complete heart block. Additionally, patient reports she has a hematoma at her right groin which is improving, but there is concern for infection. Recent dental procedure; patient had a root canal done 3 weeks after being disch arged from [facility]. Patient did not take her regular morning medications today; only took gabapentin and Cymbalta this morning. Her only recent change medications is that she cut out her middle dose of gabapentin and is now only taking it 600 mg in the morning and 800 mg at night. Patient was originally supposed to go back to work on Thursday; she works for [employer] (remote). She has been taking oxycodone 5 mg in the morning and 5 mg at night for her right wrist pain; remote history of carpal tunnel surgery 2 weeks ago. She is also rotating Tylenol and regularly, and has been for the past 2 weeks. 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 She denies smoking or tobacco use; only uses alcohol on occasion. Patient's vitals are stable at time of admission. ED course: Vancomycin 1500 mg IV Rocephin 2000 mg IV Acetaminophen 1000 mg IV Fentanyl 50 mcg ROS: Patient endorses low-grade fevers, excessive fatigue, night-sweats, dizziness/lightheadedness, congestion (attributes to allergies), mild LLOYD, chest pain, chest palpitations (intermittent), WILSON (resolved), dry cough, pain in right wrist, and numbness/tingling in the right hand (hx of carpal tunnel). Patient denies syncope, SOB at rest, abdominal pain, N/V/D, and changes in urinary/bowel habits. Allergies Allergy/AdvReac Type Severity Reaction Status Date / Time clopidogrel [From Plavix] Allergy Severe Facial Verified 08/08/24 15:43 swelling topiramate [From Topamax] Allergy Mild Rash Verified 08/08/24 15:43 spironolactone AdvReac Intermediate Hypokalemia Verified 08/08/24 15:43 [From Aldactone] chlorhexidine AdvReac Verified 08/08/24 15:43 Home Medications Medication Instructions Recorded Confirmed Type adapalene 0.3 % topical gel 1 applic topical DAILY #45 grams 08/02/20 08/31/24 Rx clindamycin phosphate 1 % topical 1 applic topical DAILY #30 mL 08/02/20 08/31/24 Rx solution epinephrine 0.3 mg/0.3 mL 0.3 mg (0.3 mL) IM ONCE PRN 10/31/20 08/31/24 Rx injection, auto-injector allergic reaction #2 ea fluticasone propionate 50 2 spray intranasal DAILY 02/04/24 08/31/24 History mcg/actuation nasal spray,suspension (Allergy Relief (fluticasone)) aspirin 81 mg tablet,delayed 81 mg PO QAM 06/27/24 08/31/24 History release (Loreta Low Dose Aspirin) polyethylene glycol 3350 17 17 g PO DAILY PRN Constipation 06/27/24 08/31/24 History gram/dose oral powder (Miralax) tirzepatide 10 mg/0.5 mL 10 mg subcut WK 06/27/24 08/31/24 History subcutaneous pen injector ferrous sulfate 325 mg (65 mg 325 mg PO DAILY #90 tabs 06/28/24 08/31/24 Rx iron) tablet ascorbate calcium (vitamin C) 500 500 mg PO DAILY #30 tabs 07/04/24 08/31/24 Rx mg tablet docusate sodium 100 mg capsule 100 mg PO BID #60 caps 07/04/24 08/31/24 Rx (Colace) pantoprazole 20 mg tablet,delayed 20 mg PO DAILY #90 tabs 07/04/24 08/31/24 Rx release sennosides 8.6 mg tablet (senna) 8.6 mg PO BID #60 tabs 07/04/24 08/31/24 Rx duloxetine 60 mg capsule,delayed 0 mg PO BID 07/11/24 08/31/24 History release (Cymbalta) gabapentin 400 mg capsule 800 mg (2 x 400 mg) PO HS #180 caps 08/08/24 08/31/24 Rx oxycodone 5 mg tablet See Rx Instructions PO Q8H PRN 08/08/24 08/31/24 Rx pain #60 tabs clonazepam 2 mg tablet (Klonopin) 3 mg PO DAILY 08/23/24 08/31/24 History etonogestrel 0.12 mg-ethinyl 0 vag ring vaginal UD 08/23/24 08/31/24 History estradiol 0.015 mg/24 hr vaginal ring cephalexin 500 mg capsule 2,000 mg (4 x 500 mg) PO UD #12 08/25/24 08/31/24 Rx caps clindamycin HCl 300 mg capsule 600 mg (2 x 300 mg) PO BID 7 days 08/25/24 08/31/24 Rx #28 caps furosemide 40 mg tablet 40 mg PO DAILY PRN 08/29/24 08/31/24 History potassium chloride 20 mEq 20 meq PO DAILY PRN 08/29/24 08/31/24 History tablet,extended release albuterol sulfate 90 mcg/actuation 2 puff inhalation .COMPLEX PRN 08/30/24 08/31/24 Rx aerosol inhaler shortness of breath or wheezing #8.5 grams gabapentin 300 mg capsule 300 mg PO BID 08/31/24 08/31/24 History Past Med/Surg History Problem List Pacemaker Aortic valve repair, complicated with complete heart block and PPM insertion (1984) > multiple removal/replacements with most recently Medtronic Micra AV pacing system (10/2020) Neuropathic pain of hand Acute bacterial endocarditis History of endocarditis Hematoma of right inguinal region Chest pain (Acute) Fever (Acute) Subacute bacterial endocarditis Bilateral carpal tunnel syndrome Anemia Anxiety History of aortic valve disease Congenital bicuspid aortic valve > childhood aortic valve repair, complicated with complete heart block and PPM insertion (1984) > Ross procedure (1996) SBE (subacute bacterial endocarditis) prophylaxis candidate Right afuhjxjyg-on-ktyqrssui artery (RV-PA) conduit obstruction Enlarged aorta 2011 Panic disorder Nasal turbinate hypertrophy Rhinitis Ascending aorta dilation Acidosis, lactic (Acute) 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 Layne) and locally Dr. Patel locally Polycystic ovaries History of congenital heart disease ADD (attention deficit disorder) Ventricular septal defect s/p VSD (1984) Heart block, AV (Acute) PACEMAKER INSERTED Endometriosis Medical History Obesity Thoracic ascending aortic aneurysm Pulmonary valve disease Hx of thoracic outlet syndrome Surgical History Status post cardiac surgery (06/14/24) History of surgery (06/23/24) S/P exploratory laparotomy (03/15/21) Status post cardiac pacemaker procedure History of nasal surgery History of cardiac cath History of surgery S/P cardiac pacemaker procedure (10/2020) Status post placement of implantable loop recorder H/O aortic valve repair (1982) S/P Ross procedure (1997) S/P VSD repair (1984) S/P section H/O umbilical hernia repair S/P laparoscopic cholecystectomy Family History Father Diabetes Coronary heart disease Hypertension Mother Hypertension Aunt Breast cancer Other No family history of adverse response to anesthesia Denies family history of Ovarian cancer Prostate cancer Myocardial infarction Colorectal cancer Social History Smoking Status: Former smoker Tobacco Type: Cigarettes Age Started Using Tobacco: 38; Age Quit Using Tobacco: 41; packs per day: 0.25; Cigarettes Per Day: "social smoker"; Second Hand Exposure: Yes; Do You Dip or Chew Tobacco: No; Hx Alcohol Use: Yes Alcohol type: beer and wine Alcohol Intake Frequency: Monthly or Less Alcohol Intake Frequency Comment: rare Hx Substance Use: No Preferred Language: Upper Sorbian Communication Ability: Effective Visual Impairment: No Limitations Hearing Ability: Normal Track Dresser Required: No Beliefs That Will Affect Care: None marital status: Current Living Situation: Family Current Living Situation Comment: Son and Fiance current occupational status: employed 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 Children do You have: 1 Feels Safe at Home: Yes Diet: regular caffeine: Yes during the past year weight has: remained stable Dental Care, Regularly: Yes Physical Activity Frequency: Other Seatbelt Use: always Sunscreen Use: Yes Assistive Devices: Glasses Review of Systems Review of Systems: See HPI above Physical Exam Physical Exam: General: no acute distress; pleasant affect; non-toxic appearing; cooperative; SpO2 98% on RA HEENT: normocephalic, atraumatic; no scleral icterus; PERRLA w/ EOMs intact; vision and hearing grossly intact Neck: supple; no lymphadenopathy; trachea midline Skin: warm, dry without signs of tenting; no cyanosis; no rashes, bruising, lesions, or erythema noted CV: chest wall is mildly TTP with palpation of the xiphoid/epigastric region; surgical scars noted; sitting upright does not change pleuritic CP; RRR; S1/S2 normal; no murmurs/rubs/gallops; pulses intact and symmetric at radial, DP, and PT Lungs: no acute respiratory distress; symmetrical chest wall expansion; clear breath sounds across all lung keane w/o adventitious sounds; no wheezing ABD: Soft, NTP; BS present; no rebound/guarding; no distention : Right inguinal hematoma assessed (nurse diesel mechanic in the room); nonerythematous; nontender to palpation MSK: no tics or fasciculations; no edema noted in the LEs b/l, nonerythematous Neuro: A&Ox3; normal mood and affect; fluent speech; no focal deficits; sensation grossly intact in the LEs b/l Results & Data Results & Data Vital Signs (Past 12 Hours) Vital Signs Temp Pulse Resp BP Pulse Ox O2 Del Method 08/23/24 09:51 96 H 17 08/23/24 09:45 93 H 13 100 08/23/24 09:35 119/82 08/23/24 09:33 94 H 08/23/24 09:15 36.8 C 94 H 20 119/82 98 Room Air Laboratory Results Abnormal lab results 08/23/24 Range/Units 09:30 MCHC 31.7 L (32.0-36.0) g/dL RDW Std Deviation 47.8 H (36.4-46.3) fL RDW Coeff of Christine 14.6 H (11.5-14.5) % Neut # (Auto) 6.56 H (1.40-6.50) K/uL ESR 44 H (0-20) mm/hr Alkaline Phosphatase 109 H (34-104) U/L C-Reactive Protein 1.85 H (0-0.5) mg/dl Diagnostic Findings Chest X-Ray 08/23/24 09:32 XR chest 1V portable HISTORY: 43 years-old Female cp, fever acute chest pain with fever COMPARISON: Radiographs 03/29/2024 TECHNIQUE: AP view of the chest FINDINGS: An electronic device projects over the left heart. Enlargement of the cardiac silhouette. Sternotomy wires are present. No pneumothorax, pleural effusion or airspace consolidation. The bones appear grossly intact. IMPRESSION: No acute process. ACT 112: Negative or not required by law. The above report was generated using voice recognition software. It may contain grammatical, syntax or spelling errors. Electronically signed by: Gerry Mixon M.D. 08/23/2024 10:12 AM ECG Additional Comments: ECG revealed NSR at 93 bpm; QTc 425 Code Status & VTE Plan Code Status Full code VTE Prophylaxis Plan VTE Prophylaxis will be ordered: Yes Supervising Physician Co-Signing Physician Notes I personally saw and examined the patient. I independently reviewed the labs, EKG, imaging, problem list, medication list, past medical history and family history. I verified all connor points and agree with Adan Belle PA-C with the following exceptions and/or additions: 43 year old well known to cardiology presents to the ER with chills and concern for bacterial endocarditis. O/E HS RRR, apical murmur, Chest CTAB, Abdo SNT, no peripheral stigmata of infective endocarditis A/P Possible bacterial endocarditis - blood cultures taken, empiric antibiotics. cardiology planning on LOU tomorrow PG Care Time/CCT Total # of Minutes Spent Total Time Spent with Patient: Total time spent is greater than 50% in coordination of care (as documented) at patient's floor/unit and/or counseling patient: Coding [place] [address] INT INP/OBS CARE 3/75MIN Patient Type Established Medical Decision Making High Complexity Diagnoses Acute bacterial endocarditis I33.0 Hematoma of right inguinal region S30.1XXA History of endocarditis Z86.79 Neuropathic pain of hand M79.2 Pacemaker Z95.0 S/P pulmonary valve replacement Z95.2 History of bicuspid aortic valve Z87.74
[2024-08-23] MEDS: VANCOMYCIN HCL 1,500 MG in SODIUM CHLORIDE 0.9% 500 ML IV ONE (11:28)
[2024-08-23 12:24] LABS: Appearance Urine Clear (Clear); Bilirubin Urine Negative (Negative); Blood Urine Negative (Negative); Color Urine Yellow; Glucose Urine UA Negative (Negative); Ketones Urine Negative (Negative); Leukocyte Esterase Urine Negative (Negative); Nitrite Urine Negative (Negative); Protein Urine Negative (Negative); Specific Gravity Urine 1.006 (1.000-1.030); Urobilinogen Urine Negative (Negative); pH Urine 5.5 (4.5-7.5)
[2024-08-23] MEDS ORDERED: POLYETHYLENE (MIRALAX) 17 GM PACK PO PRN (12:47)
--- NOTE | 2024-08-23 13:12 | Cardiology Consultation ---
Date of Consultation August 23, 2024 Assessment & Plan (1) Fever: Fever and patient with underlying complex congenital heart disease and history of subacute bacterial endocarditis. 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 The infected Damien valve was excised in an RV to pulmonary artery homograft conduit was placed in the previously retained transvenous right ventricular pacemaker lead was also excised. A wireless Micra Medtronic pacemaker system remains in the RV apex that could not be found on surgical exploration. Approximately 3 weeks after her cardiac surgery, the patient developed oral pain and underwent a root canal while on IV Rocephin. She did undergo recent right carpal tunnel release on 08/10/2024 with overall improvement in her neuropathic pain in that extremity she does note ongoing postoperative pain and swelling and had been taking Tylenol and gabapentin regularly for this. The surgical incision looks good. She did have 2 separate groin hematomas having had the groin manipulated for both her pulmonic valve surgery as well as the combined open and endovascular removal of the retained right ventricular pacemaker lead. There was still significant soft tissue and fluid and swelling in the right groin when I had seen her in outpatient follow-up in June, however the fluid collection had completely resolved at time of my recent evaluation of the patient on 08/12/2024. She continues to have some degree of soft tissue prominence there that is nontender to palpation but she does note a "pulling" sensation in her groin when she moves her leg. Will plan on proceeding with an ultrasound of this area. Blood cultures x 2 have been collected prior to initiating treatment with vancomycin and Rocephin. Will plan on a repeat transesophageal echocardiogram tomorrow. Plan for consultation to infectious disease. Patient recently been followed by both [facility] infectious disease as an outpatient, as well as [facility] infectious disease. I spent a total of 70 minutes on the date of service in preparation, delivery, and documentation of the care provided to this patient, excluding any time spent in the performance of separately billed services. History of Present Illness Attending Physician: James Christianson MD History of Present Illness Nery Berman is a 43 year old female seen in cardiology consultation per the request of Adan Belle PA-C for the evaluation of fever. Patient well-known to the undersigned with complex cardiac history as outlined below. She was recently been seen as an outpatient by the undersigned on 08/12/2024 at which time stable cardiac signs and symptoms were noted and last week I had completed a letter clearing her from a cardiac perspective to return to work because she was doing so well. She had undergone right carpal tunnel release performed at [facility] on 08/10/2024. In the meantime, last night she developed a subjective fever. She took her temperature and it was just over 99 F. She describes having had night sweats overnight last night and her bed clothes were saturated enough with perspiration that she needed to change them today. 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 At patient is afebrile in the emergency department. In no acute distress. Telemetry revealed sinus rhythm in the 80s. As summarized in my recent outpatient note: Her recent history dates back to March of 2024 when she was admitted locally with fevers and was found to have Streptococcus mitis/oralis bacteremia with presumed endocarditis. Local transesophageal echocardiogram and transthoracic echocardiogram did not reveal significant abnormality of her previously placed prosthetic pulmonic valve. Follow up echocardiogram however performed at [facility] with suggestive of prosthetic pulmonic valve dysfunction and infection. She completed a course of IV Rocephin and subsequently underwent procedures as noted below in [place]. 06/14/2024: 5th redo sternotomy; Extirpation of infected damien valve and existing RV-PA homograft conduit; Implantation of 27 mm RV-PA homograft conduit; 06/23/24 -Extirpation of infected retained transvenous pacing lead from tricuspid valve; Tricuspid valve repair; Femoral artery exposure and repair (elective) Her intraoperative valve and lead cultures were positive for Streptococcus and therefore she has a left-sided PICC line and is currently on another course of Rocephin under the guidance of Infectious Disease at [facility], the dose has been increased to 2 grams every 24 hours. Postoperatively she developed a right groin hematoma having had been accessed at this site on two occasions. She was had ultrasound studies in [place] on two occasions with findings of two separate hematomas. Her other issue is brachial plexus injury that occurred at the time of combined percutaneous and open extraction of her retained chronic right-sided pacemaker lead. She describes having excruciating pain and tingling in her right upper extremity. The pain has partially palliated at present on oxycodone and gabapentin, but she notes that she feels off balance on these medications, and she was concerned about her ability to return to work in her previous capacity. 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 At present she was on short-term disability, and she was making progress with regards to applying for a more extended time of disability as she continues to recover from her complex surgery. Past Cardiac surgery, procedural history: - 1984 Aortic valve valvuloplasty, complicated with complete heart block and PPM insertion - 1984 VSD and tricuspid repair - 1996 Ross procedure/new PPM insertion - 1996 - 2006 frequent PPM interrogations: normal AV conduction - 2006 PPM generator battery depletion detected - 2009 PPM generator extraction/ lead retained -2012 Left and right heart catheterization performed Dr Hobson [facility], normal coronaries, elevated RV systolic pressures in the 64 mm Hg range - Implantation of Dual chamber Medtronic pacemaker placed, Dr Josafat Hawkins [facility] for complete AV block -Removal of Medtronic pacemaker, removal of right atrial and right ventricular leads at [facility] on 12/09/17 due to concerns of thoracic outlet syndrome, with swelling of her left upper arm -Implantable LINQ loop recorder on 12/09/17, [facility] -10/24/2020, transcatheter pulmonic valve implantation #22 Damien valve, [facility] -10/25/2020, loop recorder removed, insertion of Medtronic Micra Wireless AV sequential pacemaker system, [facility] -November, incision, drainage, of small right groin hematoma, at procedure site from valve implantation, [facility] -mild aortic root dilatation, moderate to severe ascending thoracic aorta dilatation 4.8 centimeters -Mar, 2024, admitted to [place] , fevers, Streptococcus mitis/oralis bacteremia, presumed endocarditis Luigi negative for vegetation with noted limited visualization of the prosthetic pulmonic valve, retained pacemaker lead noted which he had initially been placed circa 1984 -06/14/2024: 5th redo sternotomy; Extirpation of infected damien valve and existing RV-PA homograft conduit; Implantation of 27 mm RV-PA homograft conduit ([facility]) -06/23/24 -Extirpation of infected retained transvenous pacing lead from tricuspid valve; Tricuspid valve repair; Femoral artery exposure and repair ([facility]) -right carpal tunnel release performed at [facility] on 08/10/2024 Allergies Allergy/AdvReac Type Severity Reaction Status Date / Time clopidogrel [From Plavix] Allergy Severe Facial Verified 08/08/24 15:43 swelling topiramate [From Topamax] Allergy Mild Rash Verified 08/08/24 15:43 spironolactone AdvReac Intermediate Hypokalemia Verified 08/08/24 15:43 [From Aldactone] chlorhexidine AdvReac Verified 08/08/24 15:43 Home Medications Medication Instructions Recorded Confirmed Type adapalene 0.3 % topical gel 1 applic topical DAILY #45 grams 08/02/20 08/23/24 Rx clindamycin phosphate 1 % topical 1 applic topical DAILY #30 mL 08/02/20 08/23/24 Rx solution epinephrine 0.3 mg/0.3 mL 0.3 mg (0.3 mL) IM ONCE PRN 10/31/20 08/23/24 Rx injection, auto-injector allergic reaction #2 ea fluticasone propionate 50 2 spray intranasal DAILY 02/04/24 08/23/24 History mcg/actuation nasal spray,suspension (Allergy Relief (fluticasone)) aspirin 81 mg tablet,delayed 81 mg PO QAM 06/27/24 08/23/24 History release (Loreta Low Dose Aspirin) furosemide 40 mg tablet 40 mg PO DAILY 06/27/24 08/23/24 History polyethylene glycol 3350 17 17 g PO DAILY PRN Constipation 06/27/24 08/23/24 History gram/dose oral powder (Miralax) potassium chloride 20 mEq 20 meq PO DAILY 06/27/24 08/23/24 History tablet,extended release tirzepatide 10 mg/0.5 mL 10 mg subcut WK 06/27/24 08/23/24 History subcutaneous pen injector ferrous sulfate 325 mg (65 mg 325 mg PO DAILY #90 tabs 06/28/24 08/23/24 Rx iron) tablet ascorbate calcium (vitamin C) 500 500 mg PO DAILY #30 tabs 07/04/24 08/23/24 Rx mg tablet docusate sodium 100 mg capsule 100 mg PO BID #60 caps 07/04/24 08/23/24 Rx (Colace) pantoprazole 20 mg tablet,delayed 20 mg PO DAILY #90 tabs 07/04/24 08/23/24 Rx release sennosides 8.6 mg tablet (senna) 8.6 mg PO BID #60 tabs 07/04/24 08/23/24 Rx duloxetine 60 mg capsule,delayed 0 mg PO BID 07/11/24 08/23/24 History release (Cymbalta) gabapentin 300 mg capsule 0 mg PO BID 08/08/24 08/23/24 History gabapentin 400 mg capsule 800 mg (2 x 400 mg) PO HS #180 caps 08/08/24 08/23/24 Rx oxycodone 5 mg tablet See Rx Instructions PO Q8H PRN 08/08/24 08/23/24 Rx pain #60 tabs clonazepam 2 mg tablet (Klonopin) 3 mg PO DAILY 08/23/24 08/23/24 History etonogestrel 0.12 mg-ethinyl 0 vag ring vaginal UD 08/23/24 08/23/24 History estradiol 0.015 mg/24 hr vaginal ring losartan 25 mg tablet 0 mg PO DAILY 08/23/24 08/23/24 History Patient History Medical History Obesity Thoracic ascending aortic aneurysm 4.7cm ascending thoracic aortic aneurysm under surveillance by cardiology 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 (10/2020) Hx of thoracic outlet syndrome Surgical History Status post cardiac surgery (06/14/24) s/p 5th redo sternotomy, extirpation of infected damien valve, extirpation of infected retained TV pacing lead from TV, TV repair, femoral artery exposure and repair (elective). History of surgery (06/23/24) Remnant lead extraction, loop recorder extraction S/P exploratory laparotomy (03/15/21) w/ excision of subcutaneous nodule Status post cardiac pacemaker procedure Aortic valve repair, complicated with complete heart block and EPM insertion (1984) Partial removal w/ lead retained (2009) History of nasal surgery + septoplasty History of cardiac cath x2 History of surgery I&D right groin area s/p cath (11/2020) > resolved S/P cardiac pacemaker procedure (10/2020) Medtronic Micra AV pacing system (10/2020) Status post placement of implantable loop recorder 2017 H/O aortic valve repair (1982) Congenital s/p valvotomy ([facility]) S/P Ross procedure (1997) S/P VSD repair (1984) S/P section x1 H/O umbilical hernia repair Incarcerated umbilical hernia repair S/P laparoscopic cholecystectomy Family History Father Diabetes Coronary heart disease Hypertension Mother Hypertension Aunt Breast cancer paternal aunt Other No family history of adverse response to anesthesia Denies family history of Ovarian cancer Prostate cancer Myocardial infarction Colorectal cancer Social History Smoking Status: Never smoker Tobacco Type: Cigarettes packs per day: 1; Second Hand Exposure: No; Do You Dip or Chew Tobacco: No; Hx Alcohol Use: No Hx Substance Use: No Preferred Language: Kiswahili Communication Ability: Effective Visual Impairment: No Limitations Hearing Ability: Normal Requisition Approver Required: No Beliefs That Will Affect Care: None marital status: Current Living Situation: Spouse Current Living Situation Comment: LIVES WITH SON current occupational status: employed 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 Children do You have: 1 Feels Safe at Home: Yes Diet: regular caffeine: Yes during the past year weight has: remained stable Dental Care, Regularly: Yes Physical Activity Frequency: Other Seatbelt Use: always Sunscreen Use: Yes Assistive Devices: None Review of Systems Review of Systems: All systems reviewed & are unremarkable except as noted in HPI & below Physical Exam Constitutional: WD/WN, vitals as above Respiratory: normal respiratory effort, lungs clear to auscultation Cardiovascular: RRR, no murmur, no edema Right groin with quarter to half dollar sized prominence, no pain on palpation Chest (Breasts): Additional Comments: Midline sternotomy incision, clean dry and intact, no erythema, chest tube incisions clean dry and intact with no erythema, no drainage Gastrointestinal (Abdomen): normal bowel sounds, soft, nontender, no hepatosplenomegaly Musculoskeletal: Right palmar incision at site of recent carpal tunnel release with mild surrounding edema, no erythema Neurologic: PERRL, EOMI, accommodation nl, no face palsy, no dysarthria Results & Data Vital Signs (Past 12 Hours) Vital Signs Temp Pulse Pulse Resp BP BP Pulse Ox 08/23/24 12:52 36.7 C 88 16 107/78 95 08/23/24 11:45 86 17 108/72 99 08/23/24 11:36 89 21 99 08/23/24 11:30 112/74 08/23/24 11:06 91 H 26 H 98 08/23/24 11:00 109/74 08/23/24 10:39 90 24 96 08/23/24 10:30 112/60 08/23/24 10:30 89 23 96 08/23/24 10:21 85 22 100 08/23/24 10:12 86 12 99 08/23/24 10:00 99/55 L 08/23/24 09:51 96 H 17 08/23/24 09:45 93 H 13 100 08/23/24 09:35 119/82 08/23/24 09:33 94 H 08/23/24 09:15 36.8 C 94 H 20 119/82 98 O2 Del Method 08/23/24 12:52 Room Air 08/23/24 11:45 08/23/24 11:36 08/23/24 11:30 08/23/24 11:06 08/23/24 11:00 08/23/24 10:39 08/23/24 10:30 08/23/24 10:30 08/23/24 10:21 08/23/24 10:12 08/23/24 10:00 08/23/24 09:51 08/23/24 09:45 08/23/24 09:35 08/23/24 09:33 08/23/24 09:15 Room Air Laboratory Results Cardiac Enzymes 08/23/24 Range/Units 09:30 AST 19 (13-39) U/L Troponin I High Sens 4.1 (0-14) pg/ml Coagulation 08/23/24 Range/Units 09:30 PT 10.3 (9.0-12.0) Seconds CBC 08/23/24 Range/Units 09:30 WBC 9.10 (4.8-10.8) K/ul RBC 4.64 (4.20-5.40) M/uL Hgb 13.3 (12.0-16.0) g/dl Hct 42.0 (37.0-47.0) % Plt Count 248 (130-400) K/uL Neut # (Auto) 6.56 H (1.40-6.50) K/uL Lymph # (Auto) 1.58 (1.20-3.40) K/uL [place] # (Auto) 0.57 (0.11-0.59) K/uL Eos # (Auto) 0.30 (0.00-0.50) K/uL Baso # (Auto) 0.06 (0.00-0.20) K/uL Comprehensive Metabolic Panel 08/23/24 Range/Units 09:30 Sodium 136 (136-145) mmol/L Potassium 3.9 (3.5-5.1) mmol/L Chloride 104 (98-107) mmol/L Carbon Dioxide 24 (21-32) mmol/L BUN 10 (6-23) mg/dl Creatinine 0.67 (0.6-1.2) mg/dl Glucose 86 (70-99(Fasting)) mg/dl Calcium 9.7 (8.6-10.3) mg/dl AST 19 (13-39) U/L ALT 19 (7-52) U/L Alkaline Phosphatase 109 H (34-104) U/L Total Protein 7.7 (6.0-8.3) gm/dl Albumin 4.5 (3.4-5.0) gm/dl Intake and Output 08/22/24 08/23/24 08/23/24 22:59 06:59 14:59 Intake Total 50 / 50 Balance 50 / 50 Intake: IV 50 / 50 cefTRIAXone SODIUM 2,000 mg In 50 / 50 50 ml @ 100 mls/hr IV NOW STA Rx#:[id number] Other: Weight 69.4 kg Weight Measurement Method Stated by Patient Patient Weight 08/24/24 06:59 Weight 69.4 kg Erythrocyte sedimentation rate minimally elevated 44 mm/h C-reactive protein minimally elevated at 1.85 mg/dL Serum procalcitonin is within normal limits Urinalysis is negative. [employer] respiratory panel is negative for adenovirus, coronavirus, influenza A, influenza B, RSV Diagnostic Findings EKG performed today 08/23/2024 and interpret independently: Sinus rhythm at 93 bpm, incomplete right bundle branch block with related nonspecific repolarization abnormalities. -Compared to previous, outpatient EKG performed 07/06/2024, incomplete right bundle branch block is relatively unchanged, poor R wave progression in lead V2 actually looks improved on the present tracing compared to the previous. Transthoracic echocardiogram performed today and interpreted independently: Trace prosthetic pulmonic regurgitation. Normal biventricular systolic function.
[2024-08-23] MEDS: LORATADINE 10 MG TAB PO SCH (13:35)
--- NOTE | 2024-08-23 13:36 | Ultrasound Report ---
ULTRASOUND RIGHT GROIN NONVASCULAR CLINICAL HISTORY: Groin hematoma. COMPARISON STUDY: Pelvic CT dated 03/28/2024. FINDINGS: Real-time grayscale and color flow sonography of the right groin is performed to assess a h ematoma. There is a complex nonvascular fluid collection in the right groin which measures 6.6 x 1.7 x 1.7 cm. The adjacent vessels appear patent. No pseudoaneurysm is seen. IMPRESSION: There is a complex nonvascular fluid collection in right groin as above, consistent with reported history of a hematoma. Continued follow-up to resolution is recommended. Dictated: 08/23/2024 12:59 PM Transcribed: 08/23/2024 1:04 PM Isaac [id number] Danny [id number] Electronically signed by: Stephane Wiseman M.D. 08/23/2024 1:35 PM
--- NOTE | 2024-08-23 14:16 | Pharmacy Report ---
Pharmacy PK ABX Note - Date of Service August 23, 2024 - Assessment and Plan Assessment 43 year old F receiving vancomycin and rocephin due to concerns for endocarditis. 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 Most recent episode of endocarditis she was treated with 6 weeks IV rocephin for strep mitis. Cardiology and ID currently consulted. Planning for LOU tomorrow. Blood cultures pending. Plan Vancomycin * Loading dose: 1500 mg IV x 1 * Maintenance dose: 1000 mg IV every 8 hours * Regimen is predicted to achieve target AUC/LIZZETTE of 400-600 mg/L.hr * Will plan to order vancomycin random level tomorrow AM to ensure dosing appropriate Pharmacy will continue to follow and will adjust dose/frequency as necessary. Thank you. Pharmacy has transitioned to AUC monitoring for vancomycin. AUC/LIZZETTE is the preferred PK/PD target and is associated with decreased risk of nephrotoxicity compared to traditional trough targets.
[2024-08-23] MEDS: oxyCODONE HCL IR 5 MG TAB (IMMEDIATE RELEASE) PO PRN (15:01)
[2024-08-23] MEDS: ACETAMINOPHEN 1,000 MG/100 ML VIAL IV STA (15:01)
[2024-08-23] MEDS: clonazePAM 1 MG TAB PO SCH (20:24)
[2024-08-23] MEDS: ACETAMINOPHEN 325 MG TAB PO PRN (20:25)
[2024-08-23] MEDS: DOCUSATE SODIUM 100 MG CAP PO SCH (20:25)
[2024-08-23] MEDS: SENNA 8.6 MG TAB PO SCH (20:25)
[2024-08-23] MEDS: VANCOMYCIN HCL 1,000 MG in SODIUM CHLORIDE 0.9% 250 ML IV SCH (20:25)
[2024-08-23] MEDS: ENOXAPARIN INJ 40 MG/0.4 ML SYR SQ SCH (20:26)
[2024-08-23] MEDS: DULoxetine HCL 60 MG CAP PO SCH (20:27)
[2024-08-23] MEDS: GABAPENTIN 400 MG CAP PO SCH (20:27)
[2024-08-24] MEDS: GABAPENTIN 600 MG TAB PO SCH (06:13)
[2024-08-24 06:51] LABS: Basophils # (auto) 0.07 K/uL (0.00-0.20); Basophils % (auto) 1.1 %; Eosinophils % (auto) 6.2 %; Hematocrit (blood only) 39.9 % (37.0-47.0); Hemoglobin 12.8 g/dl (12.0-16.0); Immature Granulocytes # (auto) 0.02 K/uL (0.01-0.20); Immature Granulocytes % (auto) 0.3 %; Lymphocytes # (auto) 1.83 K/uL (1.20-3.40); Lymphocytes % (auto) 28.4 %; Mean Corpuscular Hgb Conc 32.1 g/dL (32.0-36.0); Mean Corpuscular Volume 90.3 fL (80.0-100.0); Mean Platelet Volume 10.5 fL (9.4-12.4); Monocytes # (auto) 0.51 K/uL (0.11-0.59); Monocytes % (auto) 7.9 %; Neutrophils # (auto) 3.62 K/uL (1.40-6.50); Neutrophils % (auto) 56.1 %; Platelet Count 217 K/uL (130-400); RDW Coefficient of Variation 14.2 % (11.5-14.5); RDW Standard Deviation 47.3 fL (36.4-46.3); Red Blood Count 4.42 M/uL (4.20-5.40); White Blood Count 6.45 K/ul (4.8-10.8)
[2024-08-24 07:26] LABS: BUN Creatinine Ratio 17.9 (10-20); C Reactive Protein 1.66 mg/dl (0-0.5); Calcium 9.1 mg/dl (8.6-10.3); Creatinine Clr Calc Pharmacy 106.4 ml/min; Potassium 3.9 mmol/L (3.5-5.1)
--- NOTE | 2024-08-24 07:55 | Hospitalist Progress Note ---
Date of Service August 24, 2024 Assessment & Plan (1) Acute bacterial endocarditis: Plan: Sent in by annealing furnace tender on 08/23; concern for infective endocarditis as report she had a fever at home Hx of infective endocarditis strep mitis , recent pulmonic valve biologic re placement and pacemaker wire removal, on iv ceftriaxone 06/23-07/28/24 has had stable R groin hematoma from previous access and recent capel tunnel surgery due to neuropathy after positioning from recent cardiac procedures CRP elevated at 1.85 on arrival, Upper respiratory pcr negative Blood cultures x 2 transthoracic Echocardiogram on 08/23 revealed no evidence of vegetation; LVEF 55-60% History of valve disease/replacement in May 2024, congenital heart disease Vancomycin 1500 mg IV q24h Rocephin 2000 mg IV q24h Acetaminophen as needed for fever/pain Cardiology consult appreciated LOU may be endocarditis vs tissue variant from recent surgery, will collaborate with [facility] Infectious disease consult, [facility] (2) Hematoma of right inguinal region: Plan: Used in the past for vascular access Ultrasound of the soft tissue of the right groin hematoma only no pseudoaneurysm (3) Neuropathic pain of hand: Plan: Recent carpal tunnel surgery on right wrist Continue home medications for neuropathic pain (4) Pacemaker: Plan: Pacemaker x 40 years Multiple removal/replacements Plan Full code Heart healthy diet, n.p.o. at midnight VTE PPx: Lovenox 40 mg SQ q24h Admission and Anticipated Discharge Date Admission Date: August 23, 2024 Subjective pt is frustrated, was with fatigue low grade temps, left rib pain just below breast radiating to spine on left side, no new pains, but multiple painful areas at sternotomy site and right clavicle. R wrist pain improved with recent surgery Physical Exam Physical Exam: cardiac exam without murmur, maybe a valve click although has biologic valves by my recollection no spine pain posteriorly to palp sternotomy pain at mid scar left side pain along rib just below breast mid clavicular line abd is otherwise soft and non tender Results & Data Results & Data Vital Signs (Past 12 Hours) Vital Signs Temp Pulse Pulse Resp BP Pulse Ox O2 Del Method 08/24/24 07:32 98.1 F 90 18 100/62 98 Room Air 08/24/24 07:23 95 H 08/24/24 02:11 98.4 F 90 18 122/83 100 Room Air 08/24/24 00:45 Room Air 08/23/24 22:19 98.4 F 82 18 115/73 98 Room Air 08/23/24 22:00 87 08/23/24 20:01 97.9 F 89 18 116/79 98 Room Air Laboratory Results review cbc review chemistry discussed case with Dr Coombs PG Care Time/CCT Total # of Minutes Spent Total Time Spent with Patient: Total time spent is greater than 50% in coordination of care (as documented) at patient's floor/unit and/or counseling patient: Coding Level of Care Code 78990 SUB INP/OBS CARE 3/50MIN Diagnoses Acute bacterial endocarditis I33.0 Hematoma of right inguinal region S30.1XXA Neuropathic pain of hand M79.2 Pacemaker Z95.0
[2024-08-24] MEDS ORDERED: clonazePAM 1 MG TAB PO SCH (09:00)
--- NOTE | 2024-08-24 09:07 | Cardiology Progress Note ---
Date of Service August 24, 2024 Assessment & Plan (1) Fever: Plan: Fever malaise, night sweats in patient with underlying complex congenital heart disease and history of subacute bacterial endocarditis. 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 The infected Bev valve was excised in an RV to pulmonary artery homograft conduit was placed in the previously retained transvenous right ventricular pacemaker lead was also excised. A wireless Micra Medtronic pacemaker system remains in the RV apex that could not be found on surgical exploration. Completed an extended course of IV rocephin before and after surgery. Erythrocyte sedimentation rate minimally elevated 44 mm/h C-reactive protein minimally elevated at 1.85 mg/dL Serum procalcitonin is within normal limits Urinalysis is negative. [employer] respiratory panel is negative for adenovirus, coronavirus, influenza A, influenza B, RSV She did have two separate groin hematomas having had the groin manipulated for both her pulmonic valve surgery as well as the combined open and endovascular removal of the retained right ventricular pacemaker lead. There was still significant soft tissue and fluid and swelling in the right groin when I had seen her in outpatient follow-up in June, however the fluid collection had completely resolved at time of my recent evaluation of the patient on 08/12/2024. She continues to have some degree of soft tissue prominence there that is nontender to palpation but she does note a "pulling" sensation in her groin when she moves her leg. Soft tissue ultrasound of the groin performed 08/23/2024 with radiology report as noted:There is a complex nonvascular fluid collection in the right groin which measures 6.6 x 1.7 x 1.7 cm. The adjacent vessels appear patent. No pseudoaneurysm is seen. Blood cultures x 2 have been collected prior to initiating treatment with vancomycin and Rocephin with no growth thus far. Continue rocephin and vancomycin. Plan for LOU at 1:30 pm today. Await input from ID service. Patient recently been followed by both [facility] infectious disease as an outpatient, as well as [facility] infectious disease. She is going to reach out to her care team in [place] and let them know she is in the hospital. DVT prophylaxis: Lovenox 40 mg SQ every 24 hours Admission and Anticipated Discharge Date Admission Date: August 23, 2024 Subjective Ms. Berman is seen in cardiology follow up. Temperature was normal last night, but had night sweats , saturating sheets of her hospital bed. Feeling better at present. No focal pain with exception of site of recent carpal tunnel release and the surgical site appears to be healing well. Telemetry reveals SR in the 80s. Physical Exam Constitutional: WD/WN, vitals as above Respiratory: normal respiratory effort, lungs clear to auscultation Cardiovascular: RRR, no murmur, no edema Gastrointestinal (Abdomen): normal bowel sounds, soft, nontender, no hepatosplenomegaly Neurologic: PERRL, EOMI, accommodation nl, no face palsy, no dysarthria Results & Data Vital Signs (Past 12 Hours) Vital Signs Temp Pulse Pulse Resp BP Pulse Ox O2 Del Method 08/24/24 07:32 36.7 C 90 18 100/62 98 Room Air 08/24/24 07:23 95 H 08/24/24 02:11 36.9 C 90 18 122/83 100 Room Air 08/24/24 00:45 Room Air 08/23/24 22:19 36.9 C 82 18 115/73 98 Room Air 08/23/24 22:00 87 Laboratory Results Cardiac Enzymes 08/23/24 Range/Units 09:30 AST 19 (13-39) U/L Troponin I High Sens 4.1 (0-14) pg/ml Coagulation 08/23/24 Range/Units 09:30 PT 10.3 (9.0-12.0) Seconds CBC 08/23/24 08/24/24 Range/Units 09:30 06:03 WBC 9.10 6.45 (4.8-10.8) K/ul RBC 4.64 4.42 (4.20-5.40) M/uL Hgb 13.3 12.8 (12.0-16.0) g/dl Hct 42.0 39.9 (37.0-47.0) % Plt Count 248 217 (130-400) K/uL Neut # (Auto) 6.56 H 3.62 (1.40-6.50) K/uL Lymph # (Auto) 1.58 1.83 (1.20-3.40) K/uL Russell # (Auto) 0.57 0.51 (0.11-0.59) K/uL Eos # (Auto) 0.30 0.40 (0.00-0.50) K/uL Baso # (Auto) 0.06 0.07 (0.00-0.20) K/uL Comprehensive Metabolic Panel 08/23/24 08/24/24 Range/Units 09:30 06:03 Sodium 136 138 (136-145) mmol/L Potassium 3.9 3.9 (3.5-5.1) mmol/L Chloride 104 107 (98-107) mmol/L Carbon Dioxide 24 23 (21-32) mmol/L BUN 10 12 (6-23) mg/dl Creatinine 0.67 0.67 (0.6-1.2) mg/dl Glucose 86 83 (70-99(Fasting)) mg/dl Calcium 9.7 9.1 (8.6-10.3) mg/dl AST 19 (13-39) U/L ALT 19 (7-52) U/L Alkaline Phosphatase 109 H (34-104) U/L Total Protein 7.7 (6.0-8.3) gm/dl Albumin 4.5 (3.4-5.0) gm/dl Intake and Output 08/23/24 08/24/24 08/24/24 22:59 06:59 14:59 Intake Total 138 / 1949 Balance 138 / 1949 1950 Intake: IV 900 / 1220 270 / 1220 Acetaminophen 1,000 mg In 100 100 / 100 ml @ 400 mls/hr IV NOW STA Rx#: [id number] Vancomycin HCl 1,000 mg In 270 / 540 270 / 540 Sodium Chloride 0.9% 250 ml @ 200 mls/hr IV Q8H JIM Rx#: [id number] Vancomycin HCl 1,500 mg In 530 / 530 Sodium Chloride 0.9% 500 ml @ 200 mls/hr IV NOW ONE Rx#: [id number] Oral 480 / 730 Other: Other Intake Source NPO
[2024-08-24] MEDS ORDERED: VANCOMYCIN HCL 1,250 MG in SODIUM CHLORIDE 0.9% 500 ML IV SCH (11:30)
[2024-08-24] MEDS: cefTRIAXone SODIUM 2,000 MG/50 ML BAG IV SCH (11:42)
--- NOTE | 2024-08-24 13:01 | History & Physical Bridge Note ---
Date of Service August 24, 2024 History & Physical Bridge Note I have examined the patient, reviewed the History & Physical and in the interval since the performance of the History & Physical I have noted the following changes of clinical significance: no changes noted
--- NOTE | 2024-08-24 13:06 | Anesthesiology Consultation ---
Date of Service August 24, 2024 Assessment & Plan Chart Review Chart Review: Acceptable Risk for Surgery Consults Requested none History Surgery Operation Date: 08/24/24 13:00 Proposed Procedures p Transesophageal Echo w/Anesthesia - Curtis Patel DO Height/Weight Height: 5 ft 7 in Weight: 69.4 kg Allergies Allergy/AdvReac Type Severity Reaction Status Date / Time clopidogrel [From Plavix] Allergy Severe Facial Verified 08/08/24 15:43 swelling topiramate [From Topamax] Allergy Mild Rash Verified 08/08/24 15:43 spironolactone AdvReac Intermediate Hypokalemia Verified 08/08/24 15:43 [From Aldactone] chlorhexidine AdvReac Verified 08/08/24 15:43 Medications Home Medications Medication Instructions Recorded Confirmed Last Taken adapalene 0.3 % topical gel 1 applic topical DAILY #45 grams 08/02/20 08/23/24 03/28/24 clindamycin phosphate 1 % topical 1 applic topical DAILY #30 mL 08/02/20 08/23/24 03/28/24 solution epinephrine 0.3 mg/0.3 mL 0.3 mg (0.3 mL) IM ONCE PRN 10/31/20 08/23/24 11/12/20 injection, auto-injector allergic reaction #2 ea fluticasone propionate 50 2 spray intranasal DAILY 02/04/24 08/23/24 03/28/24 mcg/actuation nasal spray,suspension (Allergy Relief (fluticasone)) aspirin 81 mg tablet,delayed 81 mg PO QAM 06/27/24 08/23/24 Unknown release (Loreta Low Dose Aspirin) furosemide 40 mg tablet 40 mg PO DAILY 06/27/24 08/23/24 Unknown polyethylene glycol 3350 17 17 g PO DAILY PRN Constipation 06/27/24 08/23/24 Unknown gram/dose oral powder (Miralax) potassium chloride 20 mEq 20 meq PO DAILY 06/27/24 08/23/24 Unknown tablet,extended release tirzepatide 10 mg/0.5 mL 10 mg subcut WK 06/27/24 08/23/24 Unknown subcutaneous pen injector ferrous sulfate 325 mg (65 mg 325 mg PO DAILY #90 tabs 06/28/24 08/23/24 Unknown iron) tablet ascorbate calcium (vitamin C) 500 500 mg PO DAILY #30 tabs 07/04/24 08/23/24 Unknown mg tablet docusate sodium 100 mg capsule 100 mg PO BID #60 caps 07/04/24 08/23/24 Unknown (Colace) pantoprazole 20 mg tablet,delayed 20 mg PO DAILY #90 tabs 07/04/24 08/23/24 Unknown release sennosides 8.6 mg tablet (senna) 8.6 mg PO BID #60 tabs 07/04/24 08/23/24 Unknown duloxetine 60 mg capsule,delayed 0 mg PO BID 07/11/24 08/23/24 Unknown release (Cymbalta) gabapentin 300 mg capsule 0 mg PO BID 08/08/24 08/23/24 Unknown gabapentin 400 mg capsule 800 mg (2 x 400 mg) PO HS #180 caps 08/08/24 08/23/24 Unknown oxycodone 5 mg tablet See Rx Instructions PO Q8H PRN 08/08/24 08/23/24 Unknown pain #60 tabs clonazepam 2 mg tablet (Klonopin) 3 mg PO DAILY 08/23/24 08/23/24 Unknown etonogestrel 0.12 mg-ethinyl 0 vag ring vaginal UD 08/23/24 08/23/24 Unknown estradiol 0.015 mg/24 hr vaginal ring losartan 25 mg tablet 0 mg PO DAILY 08/23/24 08/23/24 Unknown Active Medications Generic Name Dose Route Start Last Admin Trade Name Freq PRN Reason Stop Dose Admin Acetaminophen 650 mg 08/23/24 12:47 08/23/24 20:25 Acetaminophen 325 Mg Tab PO 09/22/24 12:46 650 mg Q4H PRN Administration Pain or Fever Clonazepam 3 mg 08/23/24 21:00 08/23/24 20:24 Clonazepam 1 Mg Tab PO 09/22/24 20:59 3 mg HS JIM Administration Docusate Sodium 100 mg 08/23/24 21:00 08/23/24 20:25 Docusate Sodium 100 Mg Cap PO 09/22/24 20:59 100 mg BID JIM Administration Duloxetine HCl 60 mg 08/23/24 21:00 08/24/24 06:13 Duloxetine Hcl 60 Mg Cap PO 09/22/24 20:59 60 mg BID JIM Administration Enoxaparin Sodium 40 mg 08/23/24 21:00 08/23/24 20:26 Enoxaparin Inj 40 Mg/0.4 Ml Syr SQ 09/22/24 20:59 40 mg Q24H JIM Administration Gabapentin 800 mg 08/23/24 21:00 08/23/24 20:27 Gabapentin 400 Mg Cap PO 09/22/24 20:59 800 mg HS JIM Administration Gabapentin 600 mg 08/24/24 09:00 08/24/24 06:13 Gabapentin 600 Mg Tab PO 09/23/24 08:59 600 mg QAM JIM Administration Ceftriaxone Sodium 2,000 mg in 50 mls @ 100 mls/hr 08/24/24 11:00 08/24/24 12:53 Rocephin IV 10/05/24 10:59 Infused Q24H JIM Infusion Vancomycin HCl 1,000 mg/ 270 mls @ 200 mls/hr 08/23/24 20:00 08/24/24 06:06 Sodium Chloride IV 10/04/24 19:59 Infused Q8H JIM Infusion Loratadine 10 mg 08/23/24 12:47 08/23/24 14:10 Loratadine 10 Mg Tab PO 09/22/24 12:46 10 mg QAM JIM Administration Oxycodone HCl 5 mg 08/23/24 12:47 08/24/24 06:12 Oxycodone Hcl Ir 5 Mg Tab (Immediate Release) PO 09/06/24 12:46 5 mg Q8H PRN Administration [id number] Pain (6-10) Sennosides 8.6 mg 08/23/24 21:00 08/23/24 20:25 Senna 8.6 Mg Tab PO 09/22/24 20:59 8.6 mg BID JIM Administration Past Medical History Medical History Obesity Thoracic ascending aortic aneurysm 4.7cm ascending thoracic aortic aneurysm under surveillance by cardiology 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 (10/2020) Hx of thoracic outlet syndrome Past Family History Family History Father Diabetes Coronary heart disease Hypertension Mother Hypertension Aunt Breast cancer paternal aunt Other No family history of adverse response to anesthesia Denies family history of Ovarian cancer Prostate cancer Myocardial infarction Colorectal cancer Past Surgical History Surgical History Status post cardiac surgery (06/14/24) s/p 5th redo sternotomy, extirpation of infected damien valve, extirpation of infected retained TV pacing lead from TV, TV repair, femoral artery exposure and repair (elective). History of surgery (06/23/24) Remnant lead extraction, loop recorder extraction S/P exploratory laparotomy (03/15/21) w/ excision of subcutaneous nodule Status post cardiac pacemaker procedure Aortic valve repair, complicated with complete heart block and EPM insertion (1984) Partial removal w/ lead retained (2009) History of nasal surgery + septoplasty History of cardiac cath x2 History of surgery I&D right groin area s/p cath (11/2020) > resolved S/P cardiac pacemaker procedure (10/2020) Medtronic Micra AV pacing system (10/2020) Status post placement of implantable loop recorder 2017 H/O aortic valve repair (1982) Congenital s/p valvotomy ([facility]) S/P Ross procedure (1997) S/P VSD repair (1984) S/P section x1 H/O umbilical hernia repair Incarcerated umbilical hernia repair S/P laparoscopic cholecystectomy Social History Smoking Status: Never smoker tobacco type: cigarettes Do You Dip or Chew Tobacco: No Hx Alcohol Use: No Alcohol type: beer and wine alcohol intake frequency: a few times a week Hx Substance Use: No substance use type: does not use Physical Exam Vital Signs Last Vital Signs Temp 37.0 C 08/24/24 11:19 Pulse 90 08/24/24 11:19 Resp 18 08/24/24 11:19 BP 108/70 08/24/24 11:19 Pulse Ox 98 08/24/24 11:19 O2 Del Method Room Air 08/24/24 11:19 Testing Laboratory Results 08/24/24 06:03 08/24/24 06:03 PT 10.3 Seconds (9.0-12.0) 08/23/24 09:30 INR 0.9 (0.9-1.1) 08/23/24 09:30 Urine Color Yellow 08/23/24 Unknown Urine Appearance Clear (Clear) 08/23/24 Unknown Urine pH 5.5 (4.5-7.5) 08/23/24 Unknown Ur Specific [place]y 1.006 (1.000-1.030) 08/23/24 Unknown Urine Protein Negative (Negative) 08/23/24 Unknown Urine Glucose (UA) Negative (Negative) 08/23/24 Unknown Urine Ketones Negative (Negative) 08/23/24 Unknown Urine Nitrite Negative (Negative) 08/23/24 Unknown Ur Leukocyte Esterase Negative (Negative) 08/23/24 Unknown
[2024-08-24] MEDS ORDERED: LIDOCAINE 2% 2 ML VIAL/AMP(20MG/ML) INFIL ONE (13:10)
[2024-08-24] MEDS ORDERED: PROPOFOL IV EMULSION 10 MG/ML 20 ML VIAL IV ONE ×2 (13:10→13:53)
--- NOTE | 2024-08-24 13:30 | Infectious Disease Consult ---
Date of Service August 24, 2024 Telehealth Information I performed this visit using a real-time telehealth connection between my location and the patients location ([facility]). After connecting through interactive tele-video, patient was identified by name and date of and/or wristband check.Patient (or authorized healthcare registration representative) was informed that this was a telemedicine visit and it was being conducted confidentially over secure lines. My office door was closed and no o ne else was present in the room with me.Patient (or authorized healthcare registration representative) provided consent to proceed with the visit, expressed an understanding of privacy and security of the telemedicine visit, and gave permission to have a hospital registration representative in the room in order to assist with the visit and to conduct portions of the visit, as needed. I informed the patient (or authorized healthcare registration representative) that I reviewed their record and presented the opportunity for them to ask any questions regarding the visit today. The patient agreed to participate. 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 Despite adequate therapy, there was concern for persistent source and she underwent surgery in May. Her current symptoms are suggestive of recurrence, but I note she has been afebrile here so far with normal WBC. Blood cultures are negative so far, but are still only about 24 hours old. Plan 1. LOU 2. Unfortunately she was started on empiric abx and this will impair our ability for further cultures during this admission 3. Assuming the LOU is negative and the blood cultures stay negative, I would favor abx cessation and repeating blood cultures in a week as an outpatient. Repeating them now in the hospital will likely be fruitless since she is afebrile and on broad-spectrum abx. Final abx plans remain pending. Following with you. History of Present Illness History of Present Illness Ms. Berman is a 43yo female known to the ID service at [facility]. She is seen today for evaluation of possible recurrent/persistent endocarditis. She has a h/o congenital heart disaese and VSD, S/P repair. She was diagnosed with IE in March of this year due to viridans Strep. She was on IV CTX x 6 weeks followed by PO cephalexin. She sought input from [facility] and eventually underwent surgical intervention with pulmonary homograft there in May. She was once again treated with CTX x 6 weeks. Part of a PPM lead remains implanted. After completing the CTX, she has been off any abx (about 5 weeks, or so). She was feeling well though had hematomas in her right groin as a complication that have been slow to improve. She also required a root canal this summer while on abx. About 2 days prior to admission she noted new onset fatigue and night sweats. This was quite similar to her prior experience with IE and so she went to her chief of staff doctor who had her admitted to [facility]. Blood cultures were drawn and have remained negative and she was put on empiric CTX and vancomycin. She has remained afebrile during her admission though still has some sweats. She feels better overall, however, and attributes this to the abx. She had a TTE which was negative, but is to undergo a LOU this afternoon. No other complaints such as LLOYD, rash, joint aches, N/V, or diarrhea. She has some pleuritic hcest pain, which is also improved. Allergies Allergy/AdvReac Type Severity Reaction Status Date / Time clopidogrel [From Plavix] Allergy Severe Facial Verified 08/08/24 15:43 swelling topiramate [From Topamax] Allergy Mild Rash Verified 08/08/24 15:43 spironolactone AdvReac Intermediate Hypokalemia Verified 08/08/24 15:43 [From Aldactone] chlorhexidine AdvReac Verified 08/08/24 15:43 Home Medications Medication Instructions Recorded Confirmed Type adapalene 0.3 % topical gel 1 applic topical DAILY #45 grams 08/02/20 08/23/24 Rx clindamycin phosphate 1 % topical 1 applic topical DAILY #30 mL 08/02/20 08/23/24 Rx solution epinephrine 0.3 mg/0.3 mL 0.3 mg (0.3 mL) IM ONCE PRN 10/31/20 08/23/24 Rx injection, auto-injector allergic reaction #2 ea fluticasone propionate 50 2 spray intranasal DAILY 02/04/24 08/23/24 History mcg/actuation nasal spray,suspension (Allergy Relief (fluticasone)) aspirin 81 mg tablet,delayed 81 mg PO QAM 06/27/24 08/23/24 History release (Loreta Low Dose Aspirin) furosemide 40 mg tablet 40 mg PO DAILY 06/27/24 08/23/24 History polyethylene glycol 3350 17 17 g PO DAILY PRN Constipation 06/27/24 08/23/24 History gram/dose oral powder (Miralax) potassium chloride 20 mEq 20 meq PO DAILY 06/27/24 08/23/24 History tablet,extended release tirzepatide 10 mg/0.5 mL 10 mg subcut WK 06/27/24 08/23/24 History subcutaneous pen injector ferrous sulfate 325 mg (65 mg 325 mg PO DAILY #90 tabs 06/28/24 08/23/24 Rx iron) tablet ascorbate calcium (vitamin C) 500 500 mg PO DAILY #30 tabs 07/04/24 08/23/24 Rx mg tablet docusate sodium 100 mg capsule 100 mg PO BID #60 caps 07/04/24 08/23/24 Rx (Colace) pantoprazole 20 mg tablet,delayed 20 mg PO DAILY #90 tabs 07/04/24 08/23/24 Rx release sennosides 8.6 mg tablet (senna) 8.6 mg PO BID #60 tabs 07/04/24 08/23/24 Rx duloxetine 60 mg capsule,delayed 0 mg PO BID 07/11/24 08/23/24 History release (Cymbalta) gabapentin 300 mg capsule 0 mg PO BID 08/08/24 08/23/24 History gabapentin 400 mg capsule 800 mg (2 x 400 mg) PO HS #180 caps 08/08/24 08/23/24 Rx oxycodone 5 mg tablet See Rx Instructions PO Q8H PRN 08/08/24 08/23/24 Rx pain #60 tabs clonazepam 2 mg tablet (Klonopin) 3 mg PO DAILY 08/23/24 08/23/24 History etonogestrel 0.12 mg-ethinyl 0 vag ring vaginal UD 08/23/24 08/23/24 History estradiol 0.015 mg/24 hr vaginal ring losartan 25 mg tablet 0 mg PO DAILY 08/23/24 08/23/24 History Patient History Medical History Obesity Thoracic ascending aortic aneurysm 4.7cm ascending thoracic aortic aneurysm under surveillance by cardiology 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 (10/2020) Hx of thoracic outlet syndrome Surgical History Status post cardiac surgery (06/14/24) s/p 5th redo sternotomy, extirpation of infected damien valve, extirpation of infected retained TV pacing lead from TV, TV repair, femoral artery exposure and repair (elective). History of surgery (06/23/24) Remnant lead extraction, loop recorder extraction S/P exploratory laparotomy (03/15/21) w/ excision of subcutaneous nodule Status post cardiac pacemaker procedure Aortic valve repair, complicated with complete heart block and EPM insertion (1984) Partial removal w/ lead retained (2009) History of nasal surgery + septoplasty History of cardiac cath x2 History of surgery I&D right groin area s/p cath (11/2020) > resolved S/P cardiac pacemaker procedure (10/2020) Medtronic Micra AV pacing system (10/2020) Status post placement of implantable loop recorder 2017 H/O aortic valve repair (1982) Congenital s/p valvotomy ([facility]) S/P Ross procedure (1997) S/P VSD repair (1984) S/P section x1 H/O umbilical hernia repair Incarcerated umbilical hernia repair S/P laparoscopic cholecystectomy Family History Father Diabetes Coronary heart disease Hypertension Mother Hypertension Aunt Breast cancer paternal aunt Other No family history of adverse response to anesthesia Denies family history of Ovarian cancer Prostate cancer Myocardial infarction Colorectal cancer Social History Smoking Status: Never smoker Tobacco Type: Cigarettes packs per day: 1; Second Hand Exposure: No; Do You Dip or Chew Tobacco: No; Tobacco Cessation Education Requested by Patient: No Hx Alcohol Use: No Hx Substance Use: No Preferred Language: Serbian Communication Ability: Effective Visual Impairment: No Limitations Hearing Ability: Normal 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 Beliefs That Will Affect Care: None marital status: Current Living Situation: Spouse Current Living Situation Comment: LIVES WITH SON current occupational status: employed 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 How many Children do You have: 1 Other Information That Helps Us Care for You: No Feels Safe at Home: Yes Safety Concerns: Feels Safe At This Time Diet: regular caffeine: Yes during the past year weight has: remained stable Dental Care, Regularly: Yes Physical Activity Frequency: Other Seatbelt Use: always Sunscreen Use: Yes Assistive Devices: None Review of Systems Gen- Fatigue, fevers, night sweats HEENT- No sore throat Resp- No SOB or cough CV- Some pleuritic chest pain GI- nO N/V or diarrhea -No dysuria MSK- No joint swelling Skin- No rash Neuro- No focal weakness Physical Exam Gen- NAD, cooperative with exam HEENT- NC AT Neck Normal ROM Resp- Normal respiratory rate on room air Results & Data Vital Signs (Past 12 Hours) Vital Signs Temp Pulse Pulse Resp BP Pulse Ox O2 Del Method 08/24/24 11:19 37.0 C 90 18 108/70 98 Room Air 08/24/24 07:32 36.7 C 90 18 100/62 98 Room Air 08/24/24 07:23 95 H 08/24/24 02:11 36.9 C 90 18 122/83 100 Room Air Laboratory Results WBC 9.1 -> 6.45 Hgb 12.8 Platelets 217 Creatinine 0.67 Na 138 BUN 12 UA WNL Procal <0.02 ESR 44 Diagnostic Findings Micro results: Past cultures from March reviewed as per HPI Blood cultures 08/23/24 NGTD RVP negative TTE from this admission reviewed: No vegetations
--- NOTE | 2024-08-24 14:03 | Post Operative Brief Note ---
Cardiology Brief Post Op Date of Surgery August 24, 2024 Pre & Post Diagnosis Operation Date: 08/24/24 13:00 Procedure Preprocedure diagnosis: Subjective fever, night sweats, history of subacute bacterial endocarditis Post procedure diagnosis: Echodensity noted adjacent to the tricuspid valve annulus Transesophageal echocardiogram procedure The procedure took place in the postanesthesia care unit, room 19. The patient's vital signs were monitored via the standard fashion. After informed consent was obtained and timeout was performed the patient was sedated with the assistance of the anesthesia service. I non mobile echodensity was noted adjacent to the tricuspid valve annuloplasty ring possibly vegetation versus retained suture versus atypical appearance of prosthetic material related to remote and recent redo tricuspid valve repair. Recommendations: Will review images in comparison to those obtained in Mar, 2024. Await results of blood cultures. Continue empiric antibiotics Tree Doctor Curtis Patel DO Shoe Patternmaker Piedad Bee, RCS Estimated Blood Loss 0 Findings Consistent with Post-Op Diagnosis Anesthesia Type MAC Complications no complications were immediately apparent
--- NOTE | 2024-08-24 14:04 | Pharmacy Report ---
Pharmacy PK ABX Note - Date of Service August 24, 2024 - Assessment and Plan Assessment 08/24 * Vanco random level came back at 12.3 mcg/mL * This level is associated with goal AUC of 400-600, therefore we will continue the current regimen * Per ID, recommend continuation pending LOU results 08/23 * 43 year old F receiving vancomycin and rocephin due to concerns for endocarditis. 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 Most recent episode of endocarditis she was treated with 6 weeks IV rocephin for strep mitis. Cardiology and ID currently consulted. Planning for LOU tomorrow. Blood cultures pending. Plan Vancomycin * Continue maintenance dose: 1000 mg IV every 8 hours * Could consider rechecking vanco level in 2-3 days if needed Pharmacy will continue to follow and will adjust dose/frequency as necessary. Thank you. Pharmacy has transitioned to AUC monitoring for vancomycin. AUC/ILZZETTE is the preferred PK/PD target and is associated with decreased risk of nephrotoxicity compared to traditional trough targets.
[2024-08-24] MEDS: FLUTICASONE PROPIONATE NA SPR 16 GM BTL SCH (14:35)
[2024-08-24] MEDS: FUROSEMIDE 40 MG TAB PO SCH (14:35)
[2024-08-24] MEDS: PANTOprazole 40 MG TAB PO SCH (14:36)
[2024-08-24] MEDS: POTASSIUM CHLORIDE CRTAB 20 MEQ TABCR PO SCH (14:36)
[2024-08-24] MEDS: ASPIRIN 81 MG ECTAB PO SCH (14:36)
[2024-08-24] MEDS: FERROUS SULFATE 325 MG TAB PO SCH (14:37)
[2024-08-24] MEDS: VANCOMYCIN LEVEL ONE (14:37)
[2024-08-24] MEDS: BENZOCAINE/TETRACAIN/BUTAM 50 APPLN/5 GM CAN EXT ONE (14:37)
[2024-08-24] MEDS: LOSARTAN POTASSIUM 25 MG TAB PO SCH (14:38)
[2024-08-24] MEDS ORDERED: Nursing to Pharmacy Communication SCH (14:45)
--- NOTE | 2024-08-24 15:07 | Anesthesiology Progress Note ---
Date of Service August 24, 2024 Anesthesia Post Procedure Vital Signs Vital Signs: Temp Pulse Pulse Resp BP Pulse Ox O2 Del Method 08/24/24 14:50 83 08/24/24 14:01 37.2 C 84 16 113/75 100 Room Air 08/24/24 11:19 37.0 C 90 18 108/70 98 Room Air 08/24/24 07:32 36.7 C 90 18 100/62 98 Room Air 08/24/24 07:23 95 H 08/24/24 02:11 36.9 C 90 18 122/83 100 Room Air 08/24/24 00:45 Room Air 08/23/24 22:19 36.9 C 82 18 115/73 98 Room Air 08/23/24 22:00 87 08/23/24 20:01 36.6 C 89 18 116/79 98 Room Air 08/23/24 16:05 86 08/23/24 15:15 36.7 C 76 16 98/60 L 98 Room Air 08/23/24 15:12 Room Air Transfer of Care Handoff Completed per policy Notes Mental Status: alert / awake / arousable and participated in evaluation Patient Amnestic to Procedure: Yes Nausea / Vomiting: adequately controlled Pain: adequately controlled Airway Patency, RR, SpO2: stable & adequate BP & HR: stable & adequate Hydration State: stable & adequate Anesthetic Complications: no major complications apparent
--- NOTE | 2024-08-24 23:19 | CT Scan Report ---
Exam(s): CT L SPINE EXAM: CT Lumbar Spine Without Intravenous Contrast CLINICAL HISTORY: Reason for exam: previous bactermia, recent chest surg, fever. TECHNIQUE: Axial computed tomography images of the lumbar spine without intravenous contrast. CTDI is 18.04 mGy and DLP is 1291.69 mGy-cm. Automated exposure control was utilized for the study. A dose lowering technique was utilized adhering to the principles of ALARA. COMPARISON: Prior CT scan of the abdomen pelvis from March 28, 2024. FINDINGS: Vertebrae: Unremarkable. No acute fracture. Discs/spinal canal/neural foramina: No acute findings. No spinal canal stenosis. Soft tissues: Unremarkable. IMPRESSION: No evidence of acute lumbar spine pathology. Electronically signed by: Yvrose Gale MD 08/24/24 23:18 PM
--- NOTE | 2024-08-24 23:22 | CT Scan Report ---
Exam(s): CT T SPINE EXAM: CT Thoracic Spine Without Intravenous Contrast CLINICAL HISTORY: Reason for exam: previous bactermia, recent chest surg, fever. TECHNIQUE: Axial computed tomography images of the thoracic spine without intravenous contrast. CTDI is 18.04 mGy and DLP is 1291.69 mGy-cm. Automated exposure control was utilized for the study. A dose lowering technique was utilized adhering to the principles of ALARA. COMPARISON: Prior CT scan of the chest from March 28, 2024. FINDINGS: Remote fracture deformity of the left first rib. Vertebrae: Unremarkable. No acute fracture. Discs/spinal canal/neural foramina: No acute findings. No spinal canal stenosis. Soft tissues: Unremarkable. IMPRESSION: No evidence of acute thoracic spine pathology. Electronically signed by: Yvrose Gale MD 08/24/24 23:21 PM
--- NOTE | 2024-08-25 00:04 | CT Scan Report ---
Exam(s): CT CHEST Without Contrast EXAM: CT Chest Without Intravenous Contrast CLINICAL HISTORY: previous bactermia, recent chest surg, fever. TECHNIQUE: Axial computed tomography images of the chest without intravenous contrast. CTDI is 18.04 mGy and DLP is 1291.69 mGy-cm. Automated exposure control was utilized for the study. A dose lowering technique was utilized adhering to the principles of ALARA. COMPARISON: CT chest 03/28/2024. FINDINGS: Lungs: Unremarkable. No mass. No consolidation. Pleural space: Unremarkable. No pneumothorax. No pleural effusion. Heart: No cardiomegaly. No significant pericardial effusion. No significant coronary artery calcifications. Bones/joints: Incomplete healed fracture in the medial aspect the left first rib. Status post sternotomy revision with several new sternal wires and half to 1.3 cm separation of the sternal segments. Minimal associated substernal infiltration. Soft tissues: Unremarkable. Vasculature: Heart valve calcification. 4.7 cm ascending aortic aneurysm, unchanged. Descending aorta normal in caliber. No thoracic aortic aneurysm. Lymph nodes: Unremarkable. No enlarged lymph nodes. IMPRESSION: Interval sternotomy revision with separation of the sternal segments without fusion. Cannot exclude a superimposed infection/resorption/osteomyelitis. Minimal surrounding infiltration. Recommend correlation to date of surgery. Incompletely healed fracture medial left first rib. Unchanged ascending aortic aneurysm. Remainder studies unchanged. Electronically signed by: Jayce Pressley M.D. 08/25/24 00:03 AM
--- NOTE | 2024-08-25 00:23 | CT Scan Report ---
Exam(s): CT ABDOMEN + PELVIS With Contrast Oral - High Density Amt: barium EXAM: CT Abdomen and Pelvis With Intravenous Contrast CLINICAL HISTORY: previous bactermia, recent chest surg, fever. TECHNIQUE: Axial computed tomography images of the abdomen and pelvis with intravenous contrast. CTDI is 18.04 mGy and DLP is 1291.69 mGy-cm. Automated exposure control was utilized for the study. A dose lowering technique was utilized adhering to the principles of ALARA. CONTRAST: Patient received barium of Oral - High Density contrast COMPARISON: 03/28/2024. FINDINGS: Lung bases: Unremarkable. No mass. No consolidation. ABDOMEN: Liver: Unremarkable. No mass. Gallbladder and bile ducts: Post cholecystectomy. No ductal dilation. Pancreas: Unremarkable. No mass. No ductal dilation. Spleen: Unremarkable. No splenomegaly. Adrenals: Unremarkable. No mass. Kidneys and ureters: No obstructive uropathy. No obstructing renal or ureteral calculi. No hydronephrosis or hydroureter. Stomach and bowel: No obstruction or ileus. No evidence for diverticulitis. PELVIS: Appendix: No findings to suggest acute appendicitis. Bladder: Partially contracted nonspecific wall thickening. No mass. Reproductive: Uterus and ovaries are grossly unremarkable. Vaginal diaphragm present. ABDOMEN and PELVIS: Intraperitoneal space: No free air. No free fluid. Bones/joints: No acute fracture. Soft tissues: Right inguinal probable scarring and surgical clips. Vasculature: Unremarkable. No abdominal aortic aneurysm. Lymph nodes: Unremarkable. No enlarged lymph nodes. IMPRESSION: No acute intra-abdominal or pelvic abnormality. Interval right groin surgical clips and infiltration suggesting recent catheterization. No definite focal collection. Electronically signed by: Jayce Pressley M.D. 08/25/24 00:22 AM
[2024-08-25 06:55] LABS: Basophils # (auto) 0.05 K/uL (0.00-0.20); Basophils % (auto) 0.9 %; Eosinophils # (auto) 0.33 K/uL (0.00-0.50); Eosinophils % (auto) 5.8 %; Hemoglobin 11.3 g/dl (12.0-16.0); Immature Granulocytes # (auto) 0.01 K/uL (0.01-0.20); Immature Granulocytes % (auto) 0.2 %; Lymphocytes # (auto) 1.61 K/uL (1.20-3.40); Lymphocytes % (auto) 28.2 %; Mean Corpuscular Hemoglobin 29.1 pg (25.0-34.0); Mean Corpuscular Hgb Conc 33.2 g/dL (32.0-36.0); Mean Corpuscular Volume 87.6 fL (80.0-100.0); Mean Platelet Volume 10.4 fL (9.4-12.4); Monocytes % (auto) 8.8 %; Neutrophils # (auto) 3.21 K/uL (1.40-6.50); Neutrophils % (auto) 56.1 %; Platelet Count 210 K/uL (130-400); RDW Standard Deviation 44.6 fL (36.4-46.3); Red Blood Count 3.88 M/uL (4.20-5.40); White Blood Count 5.71 K/ul (4.8-10.8)
--- NOTE | 2024-08-25 07:08 | Hospitalist Progress Note ---
Date of Service August 25, 2024 Assessment & Plan (1) Acute bacterial endocarditis: Plan: Sent in by typing section chief on 08/23; concern for infective endocarditis as report she had a fever at home, blood cultures x 2 drawn NTD Hx of infective endocarditis strep mitis , recent pulmonic valve biologic replacement and pacemaker wire removal, on iv ceftriaxone 06/23-07/28/24 has had stable R groin hematoma from previous access and recent capel tunnel surgery due to neuropathy after positioning from recent cardiac procedures CRP elevated at 1.85 on arrival, Upper respiratory pcr negative Blood cultures x 2 transthoracic Echocardiogram on 08/23 revealed no evidence of vegetation; LVEF 55-60% History of valve disease/replacement in May 2024, congenital heart disease Vancomycin 1500 mg IV q24h Rocephin 2000 mg IV q24h Acetaminophen as needed for fever/pain Cardiology consult appreciated LOU may be endocarditis vs tissue variant from recent surgery, will collaborate with [facility] Infectious disease consult, typically follows at [facility] (2) Hematoma of right inguinal region: Plan: Used in the past for vascular access Ultrasound of the soft tissue of the right groin hematoma only no pseudoaneurysm (3) Neuropathic pain of hand: Plan: Recent carpal tunnel surgery on right wrist Continue home medications for neuropathic pain (4) Pacemaker: Plan: Pacemaker x 40 years Multiple removal/replacements Plan Full code Heart healthy diet, n.p.o. at midnight VTE PPx: Lovenox 40 mg SQ q24h Admission and Anticipated Discharge Date Admission Date: August 23, 2024 Results & Data Results & Data Vital Signs (Past 12 Hours) Vital Signs Temp Pulse Pulse Resp BP Pulse Ox O2 Del Method 08/25/24 02:38 98.1 F 76 18 121/82 98 Room Air 08/24/24 22:35 97.7 F 90 16 107/74 98 Room Air 08/24/24 21:38 85 08/24/24 19:22 98.8 F 82 16 118/79 97 Room Air PG Care Time/CCT Total # of Minutes Spent Total Time Spent with Patient: Total time spent is greater than 50% in coordination of care (as documented) at patient's floor/unit and/or counseling patient: Coding Diagnoses Acute bacterial endocarditis I33.0 Hematoma of right inguinal region S30.1XXA Neuropathic pain of hand M79.2 Pacemaker Z95.0
[2024-08-25 07:09] LABS: BUN Creatinine Ratio 16.2 (10-20); C Reactive Protein 1.41 mg/dl (0-0.5); Calcium 8.6 mg/dl (8.6-10.3); Creatinine Clr Calc Pharmacy 104.8 ml/min; Potassium 3.8 mmol/L (3.5-5.1)
[2024-08-25 07:45] VITALS: RESP 16
--- NOTE | 2024-08-25 14:04 | Cardiology Progress Note ---
Date of Service August 25, 2024 Assessment & Plan (1) Fever: Plan: Fever malaise, night sweats in patient with underlying complex congenital heart disease and history of subacute bacterial endocarditis. 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 The infected Bev valve was excised in an RV to pulmonary artery homograft conduit was placed in the previously retained transvenous right ventricular pacemaker lead was also excised. A wireless [employer]ra [employer] pacemaker system remains in the RV apex that could not be found on surgical exploration. Completed an extended course of IV rocephin before and after surgery. Erythrocyte sedimentation rate minimally elevated 44 mm/h C-reactive protein minimally elevated at 1.85 mg/dL Serum procalcitonin is within normal limits Urinalysis is negative. [employer] respiratory panel is negative for adenovirus, coronavirus, influenza A, influenza B, RSV Soft tissue ultrasound of the groin performed 08/23/2024 with radiology report as noted:There is a complex nonvascular fluid collection in the right groin which measures 6.6 x 1.7 x 1.7 cm. The adjacent vessels appear patent. No pseudoaneurysm is seen. Blood cultures x 2 have been collected prior to initiating treatment with vancomycin and Rocephin with no growth thus far. Continue rocephin and vancomycin. LOU revealed somewhat equivocal changes of the tricuspid valve annulus adjacent to the septum compatible with possible vegetation, but on further review, perhaps more likely with off axis view of prosthetic material related to tricuspid valve annuloplasty. Pulmonic prosthesis suboptimally visualized but appears grossly normal. CT chest results revealed sternal findings likely compatible with surgery which is recently taken place on 06/14/2024. [facility] noted and appreciated, it was recommended to discontinue antibiotics and observe patient and obtain additional blood culture should symptoms return. I was able to speak with infectious disease service at [facility] that had followed the patient during her recent hospital stay and as an outpatient and stopping antibiotics was also recommended. I will plan on following the cultures as obtained. Patient has psychosocial stressors with a teenage son at home and I think would be reasonable for her to be discharged today. Case discussed at length with Dr. Mccoy of the hospital service for the purpose of coordination of care. DVT prophylaxis: Lovenox 40 mg SQ every 24 hours Admission and Anticipated Discharge Date Admission Date: August 23, 2024 Subjective Patient seen in cardiology follow-up. No objective fever overnight last night. Blood cultures x 2 obtained 08/23/2024 without growth thus far. Telemetry reveals sinus rhythm in the 80s. Physical Exam Constitutional: WD/WN, vitals as above Respiratory: normal respiratory effort, lungs clear to auscultation Cardiovascular: RRR, no murmur, no edema Gastrointestinal (Abdomen): normal bowel sounds, soft, nontender, no hepatosplenomegaly Neurologic: PERRL, EOMI, accommodation nl, no face palsy, no dysarthria Results & Data Vital Signs (Past 12 Hours) Vital Signs Temp Pulse Pulse Resp BP Pulse Ox O2 Del Method 08/25/24 12:27 37 C 93 H 16 135/74 98 Room Air 08/25/24 07:44 36.9 C 82 16 99/65 L 97 Room Air 08/25/24 07:09 82 08/25/24 02:38 36.7 C 76 18 121/82 98 Room Air Laboratory Results Summary of radiology report of CT chest performed 08/24/2024: Interval sternotomy revision with separation of the sternal segments without fusion. Cannot exclude a superimposed infection/resorption/osteomyelitis. Minimal surrounding infiltration. Recommend correlation to date of surgery. Incompletely healed fracture medial left first rib. Unchanged ascending aortic aneurysm, 4.7 cm
[2024-08-25 14:57] VITALS: BP 117/76; PULSE 90; TEMP 99; O2SAT 99
--- NOTE | 2024-08-25 15:32 | Discharge Summary ---
Discharge Summary Date of Service August 25, 2024 Principal Dx & Hospital Course #1 = Principal Diagnosis (1) Acute bacterial endocarditis: unconfirmed Sent in by certified executive chef on 08/23; concern for infective endocarditis as report she had a fever at home, blood cultures x 2 drawn NTD Hx of infective endocarditis strep mitis , recent pulmonic valve biologic replacement and pacemaker wire removal, on iv ceftriaxone 06/23-07/28/24 has had stable R groin hematoma from previous access and recent capel tunnel surgery due to neuropathy after positioning from recent cardiac procedures Upper respiratory pcr negative Blood cultures x 2 negative to date transthoracic Echocardiogram on 08/23 revealed no evidence of vegetation; LVEF 55-60% History of valve disease/replacement in May 2024, congenital heart disease CT chest abd pelvis t spine l spine, no confired infection, non union of sternotomy Cardiology consult appreciated LOU may be endocarditis vs tissue variant from recent surgery, will collaborate with [facility] Infectious disease consult, typically follows at [facility] will d/c with instructions to have blood cultures if recurrent symptoms, on clinday 600mg bid x 7 days (2) Hematoma of right inguinal region: Used in the past for vascular access Ultrasound of the soft tissue of the right groin hematoma only no pseudoaneurysm (3) Neuropathic pain of hand: Recent carpal tunnel surgery on right wrist Continue home medications for neuropathic pain (4) Pacemaker: Pacemaker x 40 years Multiple removal/replacements Plan pt requests keflex for dental prophylaxis Admission HPI Per Admitting Provider Nery is a 43-year-old female with PMH of infective endocarditis, aortic valve disease, pulmonary valve replacement, anxiety, depression, ADD, VSD, heart block, and endometriosis. She presented on 08/23 at the behest of her certified executive chef (Dr. Patel). Patient started to develop fever and night sweats 2 nights ago. She reports that she was so sweaty that her pajamas were soaked. She also developed excessive tiredness, which is similar to her past episode of acute bacterial endocarditis. For instance, she had difficulty walking up steps and became winded. She was also having recurrent low-grade temperatures at 99.3 F similar to her first episode of endocarditis. She has been taking Tylenol daily for her symptoms. Taking Tylenol alleviates all of her symptoms within 40 minutes, and for this reason, she waited until this morning to come in for blood cultures to be drawn. This morning, she also developed low, transverse chest pain under her breast bilaterally; pleuritic chest pain worse with deep breaths. She characterizes this chest pain as a "pinching pain" that radiates between her shoulder blades with deep breaths. Given her history, she does have an order for as needed blood cultures to be drawn in the event that she develops any symptoms similar to her prior episode of endocarditis. While in the hospital having her blood cultures drawn, she met with her certified executive chef (Dr. Patel) who recommended she go to the ED immediately. No sick contacts, however she does have a child in middle school has been more tired lately; initial attributed this to "growing phase". Remote history of endocarditis and was hospitalized [facility] in January and February 2024. Follows with [facility] ID and cardiothoracic surgery. Had surgery for a pulmonary valve tissue repla cement (homograft) at the end of May 2024. She also has history of a pacemaker placement due to a "botched surgery" when she was a baby leading to VSD and complete heart block. Additionally, patient reports she has a hematoma at her right groin which is improving, but there is concern for infection. Recent dental procedure; patient had a root canal done 3 weeks after being discharged from [facility]. Patient did not take her regular morning medications today; only took gabapentin and Cymbalta this morning. Her only recent change medications is that she cut out her middle dose of gabapentin and is now only taking it 600 mg in the morning and 800 mg at night. Patient was originally supposed to go back to work on Thursday; she works for [employer] (remote). She has been taking oxycodone 5 mg in the morning and 5 mg at night for her right wrist pain; remote history of carpal tunnel surgery 2 weeks ago. She is also rotating Tylenol and regularly, and has been for the past 2 weeks. 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 She denies smoking or tobacco use; only uses alcohol on occasion. Patient's vitals are stable at time of admission. ED course: Vancomycin 1500 mg IV Rocephin 2000 mg IV Acetaminophen 1000 mg IV Fentanyl 50 mcg ROS: Patient endorses low-grade fevers, excessive fatigue, night-sweats, dizziness/lightheadedness, congestion (attributes to allergies), mild LLOYD, chest pain, chest palpitations (intermittent), WILSON (resolved), dry cough, pain in right wrist, and numbness/tingling in the right hand (hx of carpal tunnel). Patient denies syncope, SOB at rest, abdominal pain, N/V/D, and changes in urinary/bowel habits. Discharge Exam mild sternotomy scar pain but does not seem out of proportion to timing of surgery no peripheral stigmata of endocarditis Discharge Plan Discharge Items Patient Disposition: Home - Self-Care Reason For Visit: POSSIBLE REOCCURING ENDOCARDITIS Discharge Diagnosis: fevers and chills Activity: Resume your previous activity Non-emergency contact: Primary Care Provider, Specialist and Mirror Inspector Call non-emergency contact if: your symptoms worsen Follow-up/Referrals: Keysha Roe DO [Primary Care Provider] - Diet: Regular Addtl Attending Provider Instructions: Nery, we have not confirmed or excluded infection however at this time there is no culture positive results. Dr Roe will be following you as an outpt closely to try to determine next steps Pending Studies at Discharge: Yes Studies:: blood cultures Stand-Alone Forms: My [facility], Smoking Cessation Medications and DC Order Prescriptions: New clindamycin HCl 300 mg capsule 600 mg PO BID 7 Days Qty: 28 0RF Continued pantoprazole 20 mg tablet,delayed release (DR/EC) 20 mg PO DAILY Qty: 90 1RF sennosides [senna] 8.6 mg tablet 8.6 mg PO BID Qty: 60 5RF Rx Instructions: Unable to verify OTC meds at this date/time. docusate sodium [Colace] 100 mg capsule 100 mg PO BID Qty: 60 5RF Rx Instructions: Unable to verify OTC meds at this date/time. ascorbate calcium (vitamin C) 500 mg tablet 500 mg PO DAILY Qty: 30 5RF Rx Instructions: Unable to verify OTC meds at this date/time. duloxetine [Cymbalta] 60 mg capsule,delayed release(DR/EC) 0 mg PO BID Rx Instructions: Last filled 06/2024 x30 day supply. Original Directions: 60mg by mouth twice daily clindamycin phosphate 1 % solution 1 applic topical DAILY Qty: 30 0RF adapalene 0.3 % gel 1 applic topical DAILY Qty: 45 0RF gabapentin 400 mg capsule 800 mg PO HS Qty: 180 0RF gabapentin 300 mg capsule 0 mg PO BID Rx Instructions: Unable to verify med with patient/pharmacy at this date/time. Original Directions: 600mg in the morning and afternoon. oxycodone 5 mg tablet See Rx Instructions PO Q8H PRN (Reason: pain) Qty: 60 0RF Rx Instructions: Take 1-2 tabs orally every 8 hours PRN; ferrous sulfate 325 mg (65 mg iron) tablet 325 mg PO DAILY Qty: 90 1RF Rx Instructions: Unable to verify OTC meds at this date/time. furosemide 40 mg tablet 40 mg PO DAILY Rx Instructions: x 7 days polyethylene glycol 3350 [Miralax] 17 gram/dose powder 17 g PO DAILY PRN (Reason: Constipation) Rx Instructions: Unable to verify OTC meds at this date/time. potassium chloride 20 mEq tablet extended release 20 meq PO DAILY Rx Instructions: Take with lasix tirzepatide 10 mg/0.5 mL pen injector 10 mg subcut WK Rx Instructions: Takes on Thursday fluticasone propionate [Allergy Relief (fluticasone)] 50 mcg/actuation spray,suspension 2 spray intranasal DAILY Rx Instructions: Unable to verify OTC meds at this date/time. epinephrine 0.3 mg/0.3 mL auto-injector 0.3 mg IM ONCE PRN (Reason: allergic reaction) Qty: 2 0RF Rx Instructions: repeat until response aspirin [Loreta Low Dose Aspirin] 81 mg tablet,delayed release (DR/EC) 81 mg PO QAM Rx Instructions: Unable to verify OTC meds at this date/time. clonazepam [Klonopin] 2 mg tablet 3 mg PO DAILY losartan 25 mg tablet 0 mg PO DAILY Rx Instructions: Unable to verify w/ patient/pharmacy at this date/time. Original Directions: 25mg by mouth daily etonogestrel-ethinyl estradiol 0.12-0.015 mg/24 hr ring 0 vag ring VAGINAL UD Rx Instructions: Unable to verify med with patient/pharmacy at this date/time. Original Directions: 1 vaginal ring as directed Discharge Orders: Discharge Order (Routine); Ordered 08/25/24 Ordered By: Steven Escoto Admission Data Admit Date/Time: 08/23/24 11:07 Attending Provider: Steven Escoto Admit Provider: James Christianson Primary Care Provider: Keysha Roe Other Providers: James Christianson; Curtis Patel; Amari Almaguer; Mykel Carlson; Aldo Mccarty I.; Yogesh Yarbrough II; Marina Galeas; Vega Greer; Gabino Holland; Vivian Pabon; Michael Lopez Hospital Stay Data Consultations 08/23/24 10:59 ED Decision to Admit Stat 08/23/24 12:47 Consult Cardiology Routine 08/23/24 13:44 Consult Infectious Diseases Routine 08/23/24 13:46 Consult Anesthesiology Routine Procedures Performed Operation Date: 08/24/24 13:00 Actual Procedures p Trans-Esophageal Echo - DO chantelle Samuel Echo Color Flow - Curtis Patel DO s Echo Doppler Complete - Curtis Patel DO Diagnostic Imagining Performed 08/23/24 12:08 US soft tissue groin Urgent 08/24/24 17:35 CT Abd and Pelvis [CT abd pelvis oral con only] Routine CT chest diagnostic wo con Routine CT lumbar spine wo con Routine CT thoracic spine wo con Routine Pending Results Patient Have Any Pending Studies at Discharge: Yes Discharge Instructions Given to Patient (Per Discharging Provider) Nery, we have not confirmed or excluded infection however at this time there is no culture positive results. Dr Roe will be following you as an outpt closely to try to determine next steps Total Time Total Time Spent Total Time Spent (In Minutes): It required greater than 30 minutes to prepare this patient for discharge. Coding Level of Care Code 96580 INP/OBS DISCH >30 MIN Diagnoses Acute bacterial endocarditis I33.0 Hematoma of right inguinal region S30.1XXA Neuropathic pain of hand M79.2 Pacemaker Z95.0
[2024-08-26] MEDS ORDERED: VANCOMYCIN LEVEL ONE (05:00)
== END 2024-08-25 15:47 | disposition home or self-care (01) | DRG 290 ==
LOC: ED 09:03 → 2N 11:07 → SUATTDRO 11:07 → 2N 11:55